=== PATIENT | female | born 1960 | race Caucasian/White ===

== ENCOUNTER → 2017-09-11 08:47 | Outpatient (CLI) | payer OTHER, SELFPAY | PROVIDERS: Family Provider Family Medicine; PCP Family Medicine | DX: E24.9 Cushing's syndrome, unspecified (principal) | CPT/HCPCS: 36415; 82533 ==

== ENCOUNTER → 2017-09-25 10:33 | Outpatient (CLI) | payer OTHER, SELFPAY ==
[2017-09-25 11:27] LABS: Insulin 9.8 mU/L (2.6-37.6)
[2017-09-25 11:35] LABS: Anion Gap 7 (5-15); BUN 15 mg/dL (7-18); BUN/Creat Ratio 21.5 RATIO (10-20); Calcium,Total 9.6 mg/dL (8.5-10.1); Chloride 104 mmol/L (98-107); Cholesterol 226 mg/dL (200); EST Glomerular Filtration Rate 93 mL/min (>60); Est Glom Filt Rate - Afr Amer 112 mL/min (>60); Free T3 3.2 pg/mL (2.18-3.98); Glucose 105 mg/dL (74-106); High Density Lipoprotein 68 mg/dL; Potassium 4.1 mmol/L (3.5-5.1); Sodium Level 138 mmol/L (136-145); Thyroid Stim Hormone (TSH) 0.05 uIU/mL (0.358-3.74); Triglycerides 90 mg/dL; Very Low Density Lipoprotein 18 mg/dL (5-40)
[2017-09-26 15:06] LABS: Thyroglobulin Antibody < 1.0 IU/mL (0.0-0.9)
[2017-09-27 11:34] LABS: Anti-Thyroglobulin AB < 1.0 IU/mL (0.0-0.9); Thyroglobulin, Serum Qt. 0.2 ng/mL (1.5-38.5)
== END ==
PROVIDERS: Family Provider Family Medicine; PCP Family Medicine
DX: E03.9 Hypothyroidism, unspecified (principal); C73 Malignant neoplasm of thyroid gland; E88.81 Metabolic syndrome and other insulin resistance; E78.2 Mixed hyperlipidemia
CPT/HCPCS: 36415; 80048; 80061; 83525; 84432; 84436; 84443; 84481; 86800

== ENCOUNTER → 2017-12-26 15:02 | Outpatient (CLI) | payer OTHER, SELFPAY ==
[2017-12-26 16:54] LABS: Thyroid Stim Hormone (TSH) 0.08 uIU/mL (0.358-3.74)
[2017-12-29 11:11] LABS: Thyroglobulin Antibody < 1.0 IU/mL (0.0-0.9)
== END ==
PROVIDERS: Family Provider Family Medicine; PCP Family Medicine; Visit Provider Internal Medicine Endocrinology, Diabetes & Metabolism
DX: C73 Malignant neoplasm of thyroid gland (principal)
CPT/HCPCS: 36415; 84443; 86800

== ENCOUNTER → 2018-06-18 12:04 | Outpatient (CLI) | payer OTHER, SELFPAY ==
--- NOTE | 2018-06-18 12:13 | US_ITS ---
STUDY: THYROID ULTRASOUND REASON FOR EXAM: Female, 57 years old. Bilateral thyroidectomy. History of thyroid cancer. TECHNIQUE: Ultrasound evaluation of the thyroid was performed with real-time and static moy-scale imaging. COMPARISON: None. FINDINGS: The right lobe of thyroid gland is absent. Residual tissue seen in the left lobe measuring 1.7 x 0.7 x 0.7 cm. Soft tissue is homogeneous in echotexture. The isthmus is not present. The regional lymph nodes are normal. US/Thyroid IMPRESSION: Postoperative changes of bilateral thyroidectomy. Residual soft tissue in the surgical bed left lobe. Electronically Signed: Olayinka Vázquez MD at 2:28 EST , Service support ,
== END ==
PROVIDERS: Family Provider Family Medicine; PCP Family Medicine
DX: C73 Malignant neoplasm of thyroid gland (principal)
CPT/HCPCS: 76536

== ENCOUNTER → 2018-06-21 08:18 | Outpatient (CLI) | payer OTHER, SELFPAY ==
[2018-06-21 09:53] LABS: Hematocrit 45.7 % (37-47); Hemoglobin 15.2 g/dl (12.0-15.0); Mean Corp Hgb Conc 33.3 g/gl (32-36); Mean Corpuscular Hgb 31.3 pg (27.0-32.0); Mean Platelet Vol. 10.3 fl (6.2-12.0); Platelet Count 242 K/mm3 (150-450); RBC Distribution Width CV 13.4 % (11.6-14.6); RBC Distribution Width SD 46.2 fl (35.1-43.9); Red Blood Count 4.86 M/mm3 (4.2-5.4); White Blood Count 9.7 K/mm3 (4.4-11.0)
[2018-06-21 09:56] LABS: Scan Indicated on CBC? Y/N NO
[2018-06-21 10:01] LABS: Osmolality, Urine 671 mOsm/KG
[2018-06-21 10:07] LABS: Urine Sodium 142 mmol/L (Not Establ.)
[2018-06-21 10:11] LABS: Osmolality, Serum 297 mOsm/KG (275-295)
[2018-06-21 10:29] LABS: Vitamin D,25 Hydroxy 26.2 ng/mL (29.95-100.01)
[2018-06-21 10:33] LABS: AST(SGOT) 24 U/L (15-37); Alanine Aminotransfer ALT/SGPT 46 U/L (13-56); Albumin, Serum 3.7 g/dL (3.2-5.0); Alkaline Phosphatase 87 U/L (45-117); Anion Gap 7 (5-15); BUN 10 mg/dL (7-18); BUN/Creat Ratio 18.6 RATIO (10-20); Bilirubin, Direct 0.09 mg/dL (0.00-0.30); Calcium,Total 8.8 mg/dL (8.5-10.1); Chloride 113 mmol/L (98-107); Creatinine, Serum 0.54 mg/dL (0.55-1.02); EST Glomerular Filtration Rate 125 mL/min (>60); Est Glom Filt Rate - Afr Amer 151 mL/min (>60); Estradiol < 11.0 pg/mL; Follicle Stimulating Hormone 91.7 mIU/mL; Free T3 3.5 pg/mL (2.18-3.98); Globulin 3.8 g/dL (2.2-4.2); Glucose 89 mg/dL (74-106); Luteinizing Hormone 41.2 mIU/mL; Magnesium 2.1 mg/dL (1.6-2.6); Phosphorus 3.8 mg/dL (2.5-4.9); Potassium 4.1 mmol/L (3.5-5.1); Prolactin 5.6 ng/mL; Protein, Total 7.5 g/dL (6.4-8.2); Sodium Level 144 mmol/L (136-145); T4 Free Direct 1.18 ng/dL (0.76-1.46); Thyroid Stim Hormone (TSH) 0.02 uIU/mL (0.358-3.74)
[2018-06-21 10:57] LABS: PTHIN 62.9 pg/mL (18.4-80.1)
[2018-06-26 10:56] LABS: Vitamin D 1,25-Dihydroxy 38.1 pg/mL (19.9-79.3)
[2018-06-27 03:06] LABS: DHEA Sulfate 233.6 ug/dL (29.4-220.5); Growth Hormone 2.6 ng/mL (0.0-10.0); Somatomedin C 130 ng/mL (53-190)
[2018-06-27 11:19] LABS: Aldosterone, Serum 2.1 ng/dL (0.0-30.0); Anti-Thyroglobulin AB < 1.0 IU/mL (0.0-0.9); Thyroglobulin, Serum Qt. 0.1 ng/mL (1.5-38.5)
--- OUTSIDE RECORDS SUMMARY | 2018-08-07 01:20 | XMS RPT_ITS ---
:1960 Author Organization OHIP Support Name Relationship Address Phone EAGLES Unavailable [address] + [place] [address] STEFANIE PIERRE Unavailable [address] + [place] [address] BREANNA DE PAZ Unavailable Unavailable + [place] [address] EAGLES Unavailable [address] + [place] [address] STEFANIE PIERRE Unavailable [address] + [place] [address] BREANNA DE PAZ Unavailable Unavailable + [place] [address] EAGLES Unavailable [address] + [place] [address] STEFANIE PIERRE Unavailable [address] + [place] [address] BREANNA DE PAZ Unavailable Unavailable + [place] [address] EAGLES Unavailable [address] + [place] [address] STEFANIE PIERRE Unavailable [address] + [place] [address] BREANNA DE PAZ Unavailable Unavailable + [place] [address] STEFANIE PIERRE Unavailable [address] + [place] [address] BREANNA DE PAZ Unavailable Unavailable + [place] [address] UE Unavailable Unavailable Unavailable STEFANIE PIERRE Unavailable [address] + [place] [address] UE Unavailable Unavailable Unavailable KAVYA HOLDEN Unavailable Unavailable + STEFANIE PIERRE Unavailable [address] + [place] [address] UE Unavailable Unavailable Unavailable STEFANIE PIERRE Unavailable [address] + [place] [address] UE Unavailable Unavailable Unavailable STEFANIE PIERRE Unavailable [address] + [place] [address] UE Unavailable Unavailable Unavailable STEFANIE PIERRE Unavailable / + [place] [address] UE Unavailable Unavailable Unavailable Care Team Providers Name Role Phone AMBER MENSAH MD Admitting Unavailable AMBER MENSAH MD Attending Unavailable AMBER MENSAH MD Consulting Unavailable GURINDER BROOKE Attending Unavailable GURINDER BROOKE Referring Unavailable Sky, Roberto Primary Care Unavailable Sky, Roberto Attending Unavailable Sky, Roberto Primary Care Unavailable GURINDER BROOKE Attending Unavailable GURINDER BROOKE Referring Unavailable GURINDER BROOKE Attending Unavailable GURINDER BROOKE Referring Unavailable Sky, Roberto Primary Care Unavailable Sky, Roberto Attending Unavailable Sky, Roberto Referring Unavailable Sky, Roberto Primary Care Unavailable GURINDER BROOKE Attending Unavailable Sky, Roberto Primary Care Unavailable GAMALIEL GARCIA Attending Unavailable GAMALIEL GARCIA Referring Unavailable Sky, Roberto Primary Care Unavailable GURINDER BROOKE Attending Unavailable Sky, Roberto Primary Care Unavailable GURINDER BROOKE Attending Unavailable GURINDER BROOKE Referring Unavailable Sky, Roberto Primary Care Unavailable GURINDER BROOKE Consulting Unavailable Sky, Roberto Primary Care Unavailable GURINDER BROOKE Attending Unavailable GURINDER BROOKE Referring Unavailable Dr. Gamaliel Garcia Admitting Unavailable Dr. 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 / Hospital C73(ICD-10) Repository 05/28/2018 Admitting THYROID CA / GOODMAN CHERRY, Active [facility] diagnosis 193(ICD-9) [facility] Repository 05/28/2018 Unknown THYROID CA / GOODMAN CHERRY, Active [facility] 193(ICD-9) [facility] Repository 05/28/2018 Admitting MALIGNANT NEOPLASM GOODMAN CHERRY, [facility] diagnosis OF THYROID GLAND / [facility] C73(ICD-10) Repository 05/28/2018 Unknown MALIGNANT NEOPLASM GOODMAN CHERRY, Active [facility] OF THYROID GLAND / [facility] C73(ICD-10) Repository 09/25/2017 Unknown E03.9 - GURINDER BROOKE Active [place] Hypothyroidism, Community unspecified / Hospital E03.9(ICD-10) Repository 09/11/2017 Unknown 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 UNK TYPE CODE TESTS RESULT OUT OF RANGE REFERENCE UNITS LAB L505.0075 TO BE Normal CONFIRMED Result Comment: CONFIRMATORY TESTING FOR ALL POSITIVE URINE DRUG SCREEN RESULTS WILL ONLY BE SENT OUT UPON PHYSICIAN ORDER. VISTA Urine Drug Screen methods provide only preliminary analytical test results. A more specific alternate chemical method must be used in order to obtain a confirmed analytical result. Gas chromatography/mass spectrometery (GC/MS) is the preferred confirmatory method. Clinical consideration and professional judgement should be applied to any drug of abuse test result, particularly when preliminary positive results are used. URINE TCA TESTING MUST BE ORDERED SEPARATELY. USE TEST MNEMONIC: [facility] LAB L505.5005 VISTA UDS PH 6 Normal LAB L505.5015 <1000 ng/mL AMPHETAMINES Normal NEGATIVE LAB L505.5025 < 200 ng/mL BARBITIURATES Normal NEGATIVE LAB L505.5035 < 200 ng/mL BENZODIAZIPINE Normal NEGATIVE LAB L505.5045 < 300 ng/mL COCAINE Normal NEGATIVE LAB L505.5055 < 500 ng/mL ECSTACY Normal NEGATIVE LAB L505.5065 < 300 ng/mL METHADONE Normal NEGATIVE LAB L505.5075 < 300 ng/mL OPIATES Normal NEGATIVE LAB L505.5085 < 25 ng/mL PCP Normal NEGATIVE LAB L505.5095 < 50 ng/mL THC Normal NEGATIVE Performed By: #### L505.5000 #### [facility] [address] [place], [address] MISCELLANEOUS LAB Collected: 07/18/2018 Status: F Source: [place] PROCEDURE 12:00 AM [facility] Order Comment: Comments: [id number] cortisol salivary refridgerated Test(s) Ordered: [id number] cortisol salivary refridgerated TYPE CODE TESTS RESULT OUT OF RANGE REFERENCE UNITS LAB L801.1541 Normal [facility] TEST Result Comment: TEST RESULT UNITS REF INTERVAL Salivary Cortisol,MS Salivary Cortisol, MS 0.054 ug/dL Reference Range: Children and Adults: 8:00a.m.: 0.025 - 0.600 Noon: <0.010 - 0.330 4:00p.m.: 0.010 - 0.200 Midnight: <0.010 - 0.090 TESTING PERFORMED AT [facility]. ORIGINAL REPORT ON FILE IN LAB CONTAINS ADDITIONAL TEST SITE INFORMATION. Performed By: #### L801.1541 #### [facility] [address] [place], [address] CBC-COMPLETE BLOOD CNT Collected: 06/21/2018 Status: F Source: [place] NO DIFF 8:36 AM [facility] TYPE CODE TESTS RESULT OUT OF RANGE REFERENCE UNITS LAB L100.1000 4.4-11.0 K/mm3 Normal WBC 9.7 LAB L100.1200 4.2-5.4 M/mm3 Normal RBC 4.86 LAB L100.1300 12.0-15.0 g/dl High HGB 15.2 LAB L100.1400 37-47 % Normal HCT 45.7 LAB L100.1500 81-99 fL Normal MCV 94.0 LAB L100.1600 27.0-32.0 pg Normal MCH 31.3 LAB L100.1700 32-36 g/gl Normal MCHC 33.3 LAB L100.1810 11.6-14.6 % Normal RDW CV 13.4 LAB L100.1820 35.1-43.9 fl High RDW SD 46.2 LAB L100.1900 150-450 K/mm3 Normal PLT 242 LAB L100.2000 6.2-12.0 fl Normal MPV 10.3 Performed By: #### L100.0500 #### [facility] [address] [facility] [place], [address] OSMOLALITY, URINE Collected: 06/21/2018 Status: F Source: [place] 8:36 AM [facility] TYPE CODE TESTS RESULT OUT OF RANGE REFERENCE UNITS LAB L501.7400 mOsm/KG Normal 671 OSMOLALITY,U R Result Comment: OSMOLALITY URINE REFERENCE INTERVALS 24-hour Urine 300 - 900 mOsm/kg Random Urine 50 - 1400 mOsm/kg After 12 Hr fluid restriction >850 mOsm/kg Performed By: #### L501.7400, L501.5500 #### [facility] [address] [place], [address] URINE SODIUM Collected: 06/21/2018 Status: F Source: [place] 8:36 AM [facility] TYPE CODE TESTS RESULT OUT OF RANGE REFERENCE UNITS LAB L501.5500 Not Establ. mmol/L Normal UR NA 142 Performed By: #### L501.7400, L501.5500 #### [facility] [address] [place], [address] OSMOLALITY, SERUM Collected: 06/21/2018 Status: F Source: [place] 8:36 AM [facility] TYPE CODE TESTS RESULT OUT OF RANGE REFERENCE UNITS LAB L501.7300 275-295 mOsm/KG High 297 OSMOLALITY,S ER Performed By: #### L501.7300 #### [facility] [address] [place], [address] VITAMIN D,25 HYDROXY Collected: 06/21/2018 Status: F Source: [place] 8:36 AM [facility] Order Comment: Comments: [id number] METANEPHRINES TYPE CODE TESTS RESULT OUT OF REFERENCE UNITS RANGE LAB L506.1000 29.95-100.01 ng/mL Low Vitamin D 26.2 25-OH Result Comment: Vitamin D 25(OH) Status Range Deficiency <20 ng/mL (50nmol/L) Insuffciency 20 - 30 ng/mL (50 - 75 nmol/L) Sufficiency 30 - 100 ng/mL (75 - 250 nmol/L) Toxicity >100 ng/mL (>250 nmol/L) Performed By: #### L506.1000, L509.6000 #### [facility] [address] [place], [address] CORTISOL SERUM Collected: 06/21/2018 Status: F Source: [place] 8:36 AM [facility] Order Comment: Comments: [id number] METANEPHRINES TYPE CODE TESTS RESULT OUT OF RANGE REFERENCE UNITS LAB L509.6000 3.09-22.40 ug/dL Normal CORTISOL 13.90 Result Comment: Adult (AM) 4.30 - 22.40 ug/dL Adult (PM) 3.09 - 16.66 ug/dL Performed By: #### L506.1000, L509.6000 #### [facility] [address] [place], [address] BASIC METABOLIC Collected: 06/21/2018 Status: F Source: [place] PROFILE (BMP) 8:36 AM [facility] Order Comment: Has Patient had X-rays with Contrast this admission? N Comments: [id number] METANEPHRINES TYPE CODE TESTS RESULT OUT OF RANGE REFERENCE UNITS LAB L501.0100 74-106 mg/dL Normal GLU 89 Result Comment: Please note revised GLUCOSE reference range effective 2017. LAB L501.1000 7-18 mg/dL Normal BUN 10 LAB L501.1100 0.55-1.02 mg/dL Low CREAT,SERUM 0.54 Result Comment: The validity of the calculated GFR AND GFRAA in patients over 70 years has not been determined. Clinical correlation is essential. LAB L501.1110 >60 mL/min Normal EST GFR 125 Result Comment: Non- GFR Calc LAB L501.1115 >60 mL/min Normal EST GFR - AA 151 Result Comment: GFR Calc LAB L501.1300 10-20 RATIO Normal BUN/CRE 18.6 LAB L501.2200 8.5-10.1 mg/dL CA Normal 8.8 LAB L501.5300 136-145 mmol/L NA Normal 144 LAB L501.5600 3.5-5.1 mmol/L K Normal 4.1 LAB L501.5900 98-107 mmol/L High CL 113 LAB L501.6100 21.0-32.0 mmol/L Normal CO2 24.0 LAB L501.6200 5-15 Normal GAP 7 Performed By: #### L500.2500, L500.3400, L501.2300, L501.5200, L501.69528, L501.9520, L506.0400, L3100.5125, L3100.5170, L3100.5420, L3300.1750 #### [facility] [address] [place], [place], [address] LIVER PROFILE Collected: 06/21/2018 Status: F Source: [place] 8:36 AM [facility] Order Comment: Has Patient had X-rays with Contrast this admission? N Comments: [id number] METANEPHRINES TYPE CODE TESTS RESULT OUT OF RANGE REFERENCE UNITS LAB L501.1500 6.4-8.2 g/dL Normal T PROT 7.5 LAB L501.1800 3.2-5.0 g/dL Normal ALB 3.7 LAB L501.1950 2.2-4.2 g/dL Normal GLOB 3.8 LAB L501.4100 15-37 U/L Normal AST 24 LAB L501.4305 45-117 U/L Normal ALK P 87 LAB L501.4405 13-56 U/L Normal ALT 46 LAB L501.4600 0.20-1.00 mg/dL Normal T BILI 0.40 LAB L501.4700 0.00-0.30 mg/dL Normal D BILI 0.09 Performed By: #### L500.2500, L500.3400, L501.2300, L501.5200, L501.18402, L501.9520, L506.0400, L3100.5125, L3100.5170, L3100.5420, L3300.1750 #### [facility] [address] [place], [place], [address] PHOSPHORUS Collected: 06/21/2018 Status: F Source: [place] 8:36 AM [facility] Order Comment: Has Patient had X-rays with Contrast this admission? N Comments: [id number] METANEPHRINES TYPE CODE TESTS RESULT OUT OF RANGE REFERENCE UNITS LAB L501.2300 2.5-4.9 mg/dL Normal PHOS 3.8 Performed By: #### L500.2500, L500.3400, L501.2300, L501.5200, L501.09454, L501.9520, L506.0400, L3100.5125, L3100.5170, L3100.5420, L3300.1750 #### [facility] [address] [place], [place], [address] MAGNESIUM Collected: 06/21/2018 Status: F Source: [place] 8:36 AM [facility] Order Comment: Has Patient had X-rays with Contrast this admission? N Comments: [id number] METANEPHRINES TYPE CODE TESTS RESULT OUT OF RANGE REFERENCE UNITS LAB L501.5200 1.6-2.6 mg/dL Normal MG 2.1 Performed By: #### L500.2500, L500.3400, L501.2300, L501.5200, L501.71013, L501.9520, L506.0400, L3100.5125, L3100.5170, L3100.5420, L3300.1750 #### [facility] [address] [place], [place], [address] FREE T3 Collected: 06/21/2018 Status: F Source: [place] 8:36 AM [facility] Order Comment: Has Patient had X-rays with Contrast this admission? N Comments: [id number] METANEPHRINES TYPE CODE TESTS RESULT OUT OF RANGE REFERENCE UNITS LAB L501.11002 2.18-3.98 pg/mL Normal FREE T3 3.5 Performed By: #### L500.2500, L500.3400, L501.2300, L501.5200, L501.13430, L501.9520, L506.0400, L3100.5125, L3100.5170, L3100.5420, L3300.1750 #### [facility] [address] [place], [place], [address] THYROID STIM HORMONE Collected: 06/21/2018 Status: F Source: [place] (TSH) 8:36 AM [facility] Order Comment: Has Patient had X-rays with Contrast this admission? N Comments: [id number] METANEPHRINES TYPE CODE TESTS RESULT OUT OF RANGE REFERENCE UNITS LAB L501.9520 0.358-3.74 uIU/mL Low TSH 0.02 Performed By: #### L500.2500, L500.3400, L501.2300, L501.5200, L501.29661, L501.9520, L506.0400, L3100.5125, L3100.5170, L3100.5420, L3300.1750 #### [facility] [address] [place], [place], [address] T4 FREE DIRECT Collected: 06/21/2018 Status: F Source: [place] 8:36 AM [facility] Order Comment: Has Patient had X-rays with Contrast this admission? N Comments: [id number] METANEPHRINES TYPE CODE TESTS RESULT OUT OF RANGE REFERENCE UNITS LAB L506.0400 0.76-1.46 ng/dL Normal T4 FREE 1.18 DIRECT Performed By: #### L500.2500, L500.3400, L501.2300, L501.5200, L501.25547, L501.9520, L506.0400, L3100.5125, L3100.5170, L3100.5420, L3300.1750 #### [facility] [address] [place], [place], [id number] FOLLICLE STIMULATING Collected: 06/21/2018 Status: F Source: [place] HORMONE 8:36 AM [facility] Order Comment: Has Patient had X-rays with Contrast this admission? N Comments: [id number] METANEPHRINES TYPE CODE TESTS RESULT OUT OF RANGE REFERENCE UNITS LAB L3100.5125 mIU/mL Normal FSH 91.7 Result Comment: NORMAL REFERENCE RANGES FEMALE FOLLICULAR 2.3 - 12.6 mIU/mL MID-CYCLE PEAK 5.2 - 17.5 mIU/mL LUTEAL 1.7 - 12.9 mIU/mL POST-MENOPAUSAL ON MHT 5.9 - 72.8 mIU/mL NOT ON MHT 12.7 - 132.2 mlU/mL MALE 0.7 - 10.8 mIU/mL NEW TEST METHOD AND REFERENCE RANGES NOVEMBER 28, 2011 Performed By: #### L500.2500, L500.3400, L501.2300, L501.5200, L501.18031, L501.9520, L506.0400, L3100.5125, L3100.5170, L3100.5420, L3300.1750 #### [facility] [address] [place], [place], [address] LUTEINIZING HORMONE Collected: 06/21/2018 Status: F Source: [place] 8:36 AM [facility] Order Comment: Has Patient had X-rays with Contrast this admission? N Comments: [id number] METANEPHRINES TYPE CODE TESTS RESULT OUT OF RANGE REFERENCE UNITS LAB L3100.5170 mIU/mL Normal LH 41.2 Result Comment: NORMAL REFERENCE RANGES FEMALE FOLLICULAR 1.9 - 26.2 mIU/mL MID-CYCLE PEAK 22.8 - 76.1 mIU/mL LUTEAL 0.6 - 16.6 mIU/mL POST-MENOPAUSAL ON MHT 1.1 - 52.4 mIU/mL NOT ON MHT 8.6 - 61.8 mIU/mL MALE 1.2 - 10.6 mIU/mL NEW TEST METHOD AND REFERENCE RANGES NOVEMBER 28, 2011 Performed By: #### L500.2500, L500.3400, L501.2300, L501.5200, L501.29335, L501.9520, L506.0400, L3100.5125, L3100.5170, L3100.5420, L3300.1750 #### [facility] [address] [place], [place], [address] (582) PROLACTIN Collected: 06/21/2018 Status: F Source: [place] 8:36 AM [facility] Order Comment: Has Patient had X-rays with Contrast this admission? N Comments: [id number] METANEPHRINES TYPE CODE TESTS RESULT OUT OF RANGE REFERENCE UNITS LAB L3100.5420 ng/mL Normal PROLACTIN 5.6 Result Comment: NORMAL REFERENCE RANGES FEMALE NON- 2.2 - 30.3 ng/mL 8.1 - 347.6 ng/mL POST-MENOPAUSAL 0.7 - 31.5 ng/mL MALE 2.5 - 17.4 ng/mL NEW TEST METHOD AND REFERENCE RANGES NOVEMBER 28, 2011 Performed By: #### L500.2500, L500.3400, L501.2300, L501.5200, L501.71432, L501.9520, L506.0400, L3100.5125, L3100.5170, L3100.5420, L3300.1750 #### [facility] [address] [facility] [place], [place], [address] ESTRADIOL Collected: 06/21/2018 Status: F Source: [place] 8:36 AM [facility] Order Comment: Has Patient had X-rays with Contrast this admission? N Comments: [id number] METANEPHRINES TYPE CODE TESTS RESULT OUT OF RANGE REFERENCE UNITS LAB L3300.1750 pg/mL Normal ESTRADIOL < 11.0 Result Comment: NORMAL REFERENCE RANGES FEMALE FOLLICULAR 21.4 - 164.8 pg/mL MID-CYCLE PEAK 49.9 - 367.2 pg/mL LUTEAL 40.2 - 259.0 pg/mL POST-MENOPAUSAL ON MHT <11.0 - 462.1 pg/mL NOT ON MHT <11.0 - 58.3 pg/mL MALE <11.0 - 52.5 pg/mL NOTE: [facility] HAS CONFIRMED THE DRUG FULVETRANT (FASLODEX) MAY CAUSE FALSELY ELEVATED ESTRADIOL RESULTS WHEN USING THIS TEST METHOD. IF PATIENT IS TAKING FULVESTRANT AN ALTERNATIVE METHOD SHOULD BE USED TO DETERMINE ESTRADIOL CONCENTRATION. Performed By: #### L500.2500, L500.3400, L501.2300, L501.5200, L501.21810, L501.9520, L506.0400, L3100.5125, L3100.5170, L3100.5420, L3300.1750 #### [facility] [address] [place], [address] PTHIN Collected: 06/21/2018 Status: F Source: [place] 8:36 AM [facility] TYPE CODE TESTS RESULT OUT OF RANGE REFERENCE UNITS LAB L509.1000 18.4-80.1 pg/mL Normal PTHIN 62.9 Performed By: #### L509.1000 #### [facility] [address] [place], [address] VITAMIN D 1,25-DIHYDROXY Collected: 06/21/2018 Status: F Source: [place] 8:36 AM [facility] TYPE CODE TESTS RESULT OUT OF RANGE REFERENCE UNITS LAB L3300.0960 19.9-79.3 pg/mL Normal VITD 1,25 38.1 29186 Result Comment: Performed at: [facility] [id number] Case Work Aide: Gallo Elaine MD, Phone: [phone] Performed By: #### L3300.0960 #### [facility] (refer to report for specific site) refer to report for address and phone number CALCIUM IONIZED Collected: 06/21/2018 Status: F Source: [place] 8:36 AM [facility] Order Comment: Has Patient had X-rays with Contrast this admission? N Comments: [id number] METANEPHRINES Has Patient had Radioactive Injection for X-ray?: N TYPE CODE TESTS RESULT OUT OF RANGE REFERENCE UNITS LAB L3100.9600 4.5-5.6 mg/dL Normal IONIZED CA 5.4 Performed By: #### L3100.9600, L3300.1000, L3300.1100, L3300.1500, L3300.6820, L3400.1300, L3400.1375, L3400.4000 #### [facility] (refer to report for specific site) refer to report for address and phone number ADRENOCORTICOTROPIC HORMONE Collected: Status: F Source: [place] 06/21/2018 8:36 AM [facility] Order Comment: Has Patient had X-rays with Contrast this admission? N Comments: [id number] METANEPHRINES Has Patient had Radioactive Injection for X-ray?: N TYPE CODE TESTS RESULT OUT OF RANGE REFERENCE UNITS LAB L3300.1000 . pg/mL Test Normal ACTH not performed 4440 Result Comment: No frozen plasma received. Contacted Gayle at your facility on 06-25-2018 ACTH reference interval for samples collected between 7 and 10 AM. Performed By: #### L3100.9600, L3300.1000, L3300.1100, L3300.1500, L3300.6820, L3400.1300, L3400.1375, L3400.4000 #### [facility] (refer to report for specific site) refer to report for address and phone number ALDOSTERONE, SERUM Collected: 06/21/2018 Status: F Source: [place] 8:36 AM [facility] Order Comment: Has Patient had X-rays with Contrast this admission? N Comments: [id number] METANEPHRINES Has Patient had Radioactive Injection for X-ray?: N TYPE CODE TESTS RESULT OUT OF RANGE REFERENCE UNITS LAB L3300.1100 0.0-30.0 ng/dL Normal ALDOSTERON 4374 2.1 Result Comment: This test was developed and its performance characteristics determined by [facility]. It has not been cleared or approved by the Food and Drug Administration. Performed By: #### L3100.9600, L3300.1000, L3300.1100, L3300.1500, L3300.6820, L3400.1300, L3400.1375, L3400.4000 #### [facility] (refer to report for specific site) refer to report for address and phone number DHEA SULFATE Collected: 06/21/2018 Status: F Source: [place] 8:36 AM [facility] Order Comment: Has Patient had X-rays with Contrast this admission? N Comments: [id number] METANEPHRINES Has Patient had Radioactive Injection for X-ray?: N TYPE CODE TESTS RESULT OUT OF RANGE REFERENCE UNITS LAB L3300.1500 29.4-220.5 ug/dL High DHEA SULF 233.6 4020 Performed By: #### L3100.9600, L3300.1000, L3300.1100, L3300.1500, L3300.6820, L3400.1300, L3400.1375, L3400.4000 #### [facility] (refer to report for specific site) refer to report for address and phone number THYROGLOBULIN W/ANTI-TG Collected: 06/21/2018 Status: F Source: [place] AB 8:36 AM [facility] Order Comment: Has Patient had X-rays with Contrast this admission? N Comments: [id number] METANEPHRINES Has Patient had Radioactive Injection for X-ray?: N TYPE CODE TESTS RESULT OUT OF RANGE REFERENCE UNITS LAB L3300.7025 0.0-0.9 IU/mL Normal ANTI-TG < 1.0 AB Result Comment: Thyroglobulin Antibody measured by [facility] L3400.1030 1.5-38.5 ng/mL Low THYROGLOB 0.1 Result Comment: According to the National Academy of Clinical Biochemistry, the reference interval for Thyroglobulin (TG) should be related to euthyroid patients and not for patients who underwent thyroidectomy. TG reference intervals for these patients depend on the residual mass of the thyroid tissue left after surgery. Establishing a post-operative baseline is recommended. The assay limit of quantitation is 0.1 ng/mL Thyroglobulin measured by [facility] Performed By: #### L3100.9600, L3300.1000, L3300.1100, L3300.1500, L3300.6820, L3400.1300, L3400.1375, L3400.4000 #### [facility] (refer to report for specific site) refer to report for address and phone number SOMATOMEDIN C Collected: 06/21/2018 Status: F Source: [place] 8:36 AM [facility] Order Comment: Has Patient had X-rays with Contrast this admission? N Comments: [id number] METANEPHRINES Has Patient had Radioactive Injection for X-ray?: N TYPE CODE TESTS RESULT OUT OF RANGE REFERENCE UNITS LAB L3400.1300 53-190 ng/mL Normal SOMATOM 130 [id number] Performed By: #### L3100.9600, L3300.1000, L3300.1100, L3300.1500, L3300.6820, L3400.1300, L3400.1375, L3400.4000 #### [facility] (refer to report for specific site) refer to report for address and phone number GROWTH HORMONE Collected: 06/21/2018 Status: F Source: [facility] 8:36 AM [facility] [place] Order Comment: Has Patient had X-rays with Contrast this admission? N Comments: [id number] METANEPHRINES Has Patient had Radioactive Injection for X-ray?: N TYPE CODE TESTS RESULT OUT OF RANGE REFERENCE UNITS LAB L3400.1375 0.0-10.0 ng/mL Normal GROWTH HOR 2.6 4275 Performed By: #### L3100.9600, L3300.1000, L3300.1100, L3300.1500, L3300.6820, L3400.1300, L3400.1375, L3400.4000 #### [facility] (refer to report for specific site) refer to report for address and phone number RENIN, PLASMA Collected: 06/21/2018 Status: F Source: [place] 8:36 AM [facility] Order Comment: Has Patient had X-rays with Contrast this admission? N Comments: [id number] METANEPHRINES Has Patient had Radioactive Injection for X-ray?: N TYPE CODE TESTS RESULT OUT OF RANGE REFERENCE UNITS LAB L3400.4000 . ng/mL/hr Test Normal not performed RENIN,PL 2005 Result Comment: No frozen plasma received. This test was developed and its performance characteristics determined by [facility]. It has not been cleared or approved by the Food and Drug Administration. Contacted Gayle at your facility on 06-25-2018 Performed By: #### L3100.9600, L3300.1000, L3300.1100, L3300.1500, L3300.6820, L3400.1300, L3400.1375, L3400.4000 #### [facility] (refer to report for specific site) refer to report for address and phone number MISCELLANEOUS LAB Collected: 06/21/2018 Status: F Source: [place] PROCEDURE 8:36 AM [facility] Order Comment: Comments: [id number] METANEPHRINES Test(s) Ordered: [id number] METANEPHRINES TYPE CODE TESTS RESULT OUT OF RANGE REFERENCE UNITS LAB L801.1541 Normal [facility] LAB TEST Result Comment: TEST RESULT UNITS REFERENCE INTERVAL Metanephrines, Frac., Pl. Free Normetanephrine, Pl 63 pg/mL 0 - 145 Metanephrine, Pl 10 pg/mL 0 - 62 Concentrations of Normetanephrine between 146 and 487 pg/mL, and Metanephrine between 63 and 255 pg/mL are considered indeterminate. Follow-up biochemical testing is recommended when patient levels fall within this indeterminate range. These tests include repeat testing of plasma/urinary fractionated metanephrines and plasma catecholamines. TESTING PERFORMED AT [facility]. ORIGINAL REPORT ON FILE IN LAB CONTAINS ADDITIONAL TEST SITE INFORMATION. Performed By: #### L801.1541 #### [facility] [address] [place], [address] THYROID Observed: 06/18/2018 Status: F Source: [place] 12:14 PM [facility] [place] Imaging Services [address] [place] [address] Thyroid MR#: [id number] Acct: [id number] Name: MERY PLEITEZ Rep #: [id number] : 1960 F 57 From: Olayinka Vázquez PCP: Roberto Sky MD Status: REG CLI Study: Thyroid Date of Exam: 06/18/18 Exam# [id number] Ordering Dr: DREW MENSAH STUDY: THYROID ULTRASOUND REASON FOR EXAM: Female, 57 years old. Bilateral thyroidectomy. History of thyroid cancer. TECHNIQUE: Ultrasound evaluation of the thyroid was performed with real-time and static garg-scale imaging. COMPARISON: None. FINDINGS: The right lobe of thyroid gland is absent. Residual tissue seen in the left lobe measuring 1.7 x 0.7 x 0.7 cm. Soft tissue is homogeneous in echotexture. The isthmus is not present. The regional lymph nodes are normal. US/Thyroid IMPRESSION: Postoperative changes of bilateral thyroidectomy. Residual soft tissue in the surgical bed left lobe. Electronically Signed: Olayinka Vázquez MD at 2:28 EST , Service support , CC: Roberto Sky MD; DREW MENSAH [employer] Clerk: Signed CNCO Observed: 02/09/2018 Status: COMPLETED Source: [place] 12:00 AM [facility] [place] REPOSITORY Letter Text Neena [place] CNP [facility] [place] [address] Mery Pleitez February 09, 2018 Mery Tre Pleitez [address] [address] Dear Ms. Pleitez, It was noted that you did not keep your scheduled appointment on 02/09/18. It is important to contact the office in advance if you are unable to keep your appointment so that it is available for other patients. Your medical care is important to us. Please call our office to reschedule an appointment. Sincerely, Neena [place] CNP THYROID STIM HORMONE Collected: 12/26/2017 Status: F Source: [place] (TSH) 3:06 PM [facility] TYPE CODE TESTS RESULT OUT OF RANGE REFERENCE UNITS LAB L501.9520 0.358-3.74 uIU/mL Low TSH 0.08 Performed By: #### L501.9520 #### [place] [facility] [address] [place], [address] THYROGLOBULIN ANTIBODY Collected: 12/26/2017 Status: F Source: [place] 3:06 PM [facility] TYPE CODE TESTS RESULT OUT OF RANGE REFERENCE UNITS LAB L3300.7027 0.0-0.9 IU/mL Normal TG AB < 1.0 Result Comment: Thyroglobulin Antibody measured by Leobardo [place] Methodology Performed at: - [facility] [address] [id number] Case Work Aide: Sudhir Trinidad PhD, Phone: [phone] Performed By: #### L3300.7027 #### [facility] (refer to report for specific site) refer to report for address and phone number [id number] WHOLE BODY Observed: 12/14/2017 Status: F Source: [facility] SCAN 10:15 AM [facility] REPOSITORY Final Report Accession No: [id number] Performed: Dec 14 2017 10:15AM Examination: I-131 WHOLE BODY SCAN I-131 TOTAL BODY SCAN: HISTORY: Recurrent thyroid cancer. COMPARISON: None. TECHNIQUE: The patient received 3.1 millicuries of I-123 sodium iodide by mouth and whole body imaging was performed at 24 hours. FINDINGS: There is a focus of increased activity within the neck near the midline. There is additional mild activity noted just inferior to this focus. There is an otherwise physiologic distribution of activity. IMPRESSION: 1. Foci of activity in the neck. If the patient did not have prior radioactive iodine therapy, this is likely due to thyroid remnant tissue. Otherwise, it could be due to metastatic disease. Ultrasound may be considered. 2. No evidence of distant metastatic disease. Interpreting Physician: HUI PARKS M.D. Trans: lcoope : cc: CT HEAD OR BRAIN W/O Observed: 10/14/2017 Status: F Source: DENOMINATIONAL CONTRAST 1:37 AM [facility] REPOSITORY Exam Date/Time: 10/14/2017 01:54 EDT Reason for Exam: fall;Other (please specify) Report CT SCAN BRAIN, NONCONTRAST CLINICAL HISTORY: [Fall, mental status changes. Injury. Intoxication. COMPARISON: None. TECHNIQUE: Unenhanced helical imaging was acquired from skull base to vertex. Multiplanar images are submitted. Dose reduction techniques were achieved by using automated exposure control and/or adjustment of mA and/or kV according to patient size and/or use of iterative reconstruction technique. FINDINGS: There is no acute intraaxial or extraaxial mass, shift, or bleed. Garg-white junctions are well defined. The ventricles and sulci are age-appropriate. The pituitary and sella turcica are normal. The orbit and ocular contents are normal. The paranasal sinuses are clear. Calvarium is intact. IMPRESSION: 1. No acute intracranial event. 2. Clear sinuses. 3. No calvarial injury. FINAL REPORT Dictated: 10/14/2017 3:45 am Alexandra Aranda MD Signed (Electronic Signature): 10/14/2017 3:45 am Signed by: Alexandra Aranda MD Technologist: GABRIELLA CT SPINE CERVICAL W/O Observed: 10/14/2017 Status: F Source: DENOMINATIONAL CONTRAST 1:37 AM [facility] REPOSITORY Exam Date/Time: 10/14/2017 01:54 EDT Reason for Exam: Trauma Report CERVICAL SPINE CT CLINICAL HISTORY: Trauma. COMPARISON: CT brain 10/14/2017. TECHNIQUE: Unenhanced helical imaging of the cervical spine was performed. Dose reduction techniques were achieved by using automated exposure control and/or adjustment of mA and/or kV according to patient size and/or use of iterative reconstruction technique. Axial, coronal, and sagittal reconstructions are submitted. FINDINGS: There is no acute fracture or dislocation. The craniocervical and cervicothoracic junctions are normal. No prevertebral soft tissue swelling is seen. The tracheal airway is intact. Mild discogenic disease is seen at C4-C5 with small broad- based disc-osteophyte complex present. Bridging osteophytic spurring is also seen at C5-C6. Vertebral body heights, disc heights, and bone mineralization are normal. No neural foraminal stenosis is seen. No central canal stenosis is identified, either. The patient is post prior thyroidectomy. The imaged lung apices are clear. IMPRESSION: 1. Normal alignment. 2. No acute osseous abnormality. 3. Mild multilevel degenerative disease. No central canal or neural foraminal stenosis. FINAL REPORT Dictated: 10/14/2017 3:45 am Alexandra Aranda MD Signed (Electronic Signature): 10/14/2017 3:45 am Signed by: Alexandra Aranda MD Technologist: GABRIELLA ETHANOL Collected: 10/14/2017 Status: F Source: DENOMINATIONAL 1:36 AM [facility] REPOSITORY TYPE CODE TESTS RESULT OUT OF RANGE REFERENCE UNITS LAB [id number](L 0-15 mg/dL OINC) Abnormal Alert Ethanol Lvl 358 Result Comment: Critical Result ETOH: Called to: JAY ESQUIVEL at: 01:52:41 by:NICOLAS Read back by:JAY ESQUIVEL SAMPLES WITH CONCENTRATIONS <15 MG/DL SHOULD BE INTERPRETED NEGATIVE. FOR MEDICAL USE ONLY Performed By: #### [id number] #### [facility] [place] [address] INSULIN Collected: 09/25/2017 Status: F Source: [place] 10:41 AM [facility] TYPE CODE TESTS RESULT OUT OF RANGE REFERENCE UNITS LAB [id number] 2.6-37.6 mU/L Normal Insulin 9.8 Result Comment: Please Note: INSULIN METHOD AND REFERENCE RANGE CHANGE Effective 07/20/2017. Performed By: #### [id number] #### [facility] [address] [place], [address] BASIC METABOLIC Collected: 09/25/2017 Status: F Source: [place] PROFILE (BMP) 10:41 AM [facility] TYPE CODE TESTS RESULT OUT OF RANGE REFERENCE UNITS LAB L501.0100 74-106 mg/dL Normal GLU 105 Result Comment: Fasting Glucose result from 100 to 125 mg/dL suggests IMPAIRED HOMEOSTASIS per A.D.A. criteria. Please note revised GLUCOSE reference range effective 2017. LAB L501.1000 7-18 mg/dL Normal BUN 15 LAB L501.1100 0.55-1.02 mg/dL Normal CREAT,SERUM 0.70 Result Comment: The validity of the calculated GFR AND GFRAA in patients over 70 years has not been determined. Clinical correlation is essential. LAB L501.1110 >60 mL/min Normal EST GFR 93 Result Comment: Non- GFR Calc LAB L501.1115 >60 mL/min Normal EST GFR - AA 112 Result Comment: GFR Calc LAB L501.1300 10-20 RATIO High BUN/CRE 21.5 LAB L501.2200 8.5-10.1 mg/dL CA Normal 9.6 LAB L501.5300 136-145 mmol/L NA Normal 138 LAB L501.5600 3.5-5.1 mmol/L K Normal 4.1 LAB L501.5900 98-107 mmol/L CL Normal 104 LAB L501.6100 21.0-32.0 mmol/L Normal CO2 27.0 LAB L501.6200 5-15 Normal GAP 7 Performed By: #### L500.2500, L500.4100, L501.73711, L501.9310, L501.9520 #### [facility] [address] [place], [place], [address] LIPID PROFILE Collected: 09/25/2017 Status: F Source: [place] 10:41 AM [facility] [place] TYPE CODE TESTS RESULT OUT OF RANGE REFERENCE UNITS LAB L501.4900 200 mg/dL High CHOL 226 Result Comment: <200 mg/dL Desirable 200-240 mg/dL Borderline >240 mg/dL High Risk LAB L501.5000 mg/dL Normal TRIG 90 Result Comment: The drugs N-Acetylcysteine and Metamizole may falsely depress this assay. Serum Triglycerides Reference Interval Normal <150 mg/dL Borderline high 150 - 199 mg/dL High 200 - 499 mg/dL Very High > or = 500 mg/dL LAB L501.6400 mg/dL Normal HDL 68 Result Comment: The drugs N-Acetylcysteine and Metamizole may falsely depress this assay. Reference Range HDL <40 mg/dL Low HDL Cholesterol HDL >or= 60 mg/dL High HDL Cholesterol LAB L501.6500 0-130 mg/dL High LDL 140 LAB L501.6600 5-40 mg/dL Normal VLDL 18 Performed By: #### L500.2500, L500.4100, L501.86692, L501.9310, L501.9520 #### [facility] [address] [place], [place], [address] FREE T3 Collected: 09/25/2017 Status: F Source: [place] 10:41 AM [facility] TYPE CODE TESTS RESULT OUT OF RANGE REFERENCE UNITS LAB L501.23525 2.18-3.98 pg/mL Normal FREE T3 3.2 Performed By: #### L500.2500, L500.4100, L501.66445, L501.9310, L501.9520 #### [facility] [address] [place], [place], [address] T4 TOTAL, THYROXIN Collected: 09/25/2017 Status: F Source: [place] 10:41 AM [facility] [place] TYPE CODE TESTS RESULT OUT OF RANGE REFERENCE UNITS LAB L501.9310 4.8-13.9 ug/dL T4 Normal THYROXIN 13.0 Performed By: #### L500.2500, L500.4100, L501.60139, L501.9310, L501.9520 #### [facility] [address] [place], [place], [address] THYROID STIM HORMONE Collected: 09/25/2017 Status: F Source: [place] (TSH) 10:41 AM [facility] [place] [place] TYPE CODE TESTS RESULT OUT OF RANGE REFERENCE UNITS LAB L501.9520 0.358-3.74 uIU/mL Low TSH 0.05 Performed By: #### L500.2500, L500.4100, L501.63099, L501.9310, L501.9520 #### [facility] [address] [place], [place], [id number] THYROGLOBULIN ANTIBODY Collected: 09/25/2017 Status: F Source: [place] 10:41 AM [facility] [place] TYPE CODE TESTS RESULT OUT OF RANGE REFERENCE UNITS LAB L3300.7027 0.0-0.9 IU/mL Normal TG AB < 1.0 Result Comment: Thyroglobulin Antibody measured by Leobardo [place] Methodology Performed at: - [facility] [id number] Case Work Aide: Sudhir Trinidad PhD, Phone: [phone] Performed By: #### L3300.7027 #### [facility] (refer to report for specific site) refer to report for address and phone number THYROGLOBULIN W/ANTI-TG Collected: 09/25/2017 Status: F Source: [place] AB 10:41 AM [facility] TYPE CODE TESTS RESULT OUT OF RANGE REFERENCE UNITS LAB L3300.7025 0.0-0.9 IU/mL Normal ANTI-TG < 1.0 AB Result Comment: Thyroglobulin Antibody measured by Leobardo [place] Methodology LAB L3400.1030 1.5-38.5 ng/mL Low THYROGLOB 0.2 Result Comment: According to the National Academy of Clinical Biochemistry, the reference interval for Thyroglobulin (TG) should be related to euthyroid patients and not for patients who underwent thyroidectomy. TG reference intervals for these patients depend on the residual mass of the thyroid tissue left after surgery. Establishing a post-operative baseline is recommended. The assay limit of quantitation is 0.1 ng/mL Thyroglobulin measured by Leobardo [place] Immunometric Assay Performed at: [facility] [address] [id number] Case Work Aide: Sudhir Trinidad PhD, Phone: [phone] Performed By: #### L3300.6820 #### [facility] (refer to report for specific site) refer to report for address and phone number CORTISOL SERUM Collected: 09/11/2017 Status: F Source: [place] 8:57 AM [facility] Order Comment: Comments: MEDICATION GIVEN AT 0000 TYPE CODE TESTS RESULT OUT OF REFERENCE UNITS RANGE LAB L509.6000 3.09-22.40 ug/dL Low CORTISOL 0.80 Result Comment: Adult (AM) 4.30 - 22.40 ug/dL Adult (PM) 3.09 - 16.66 ug/dL Performed By: #### L509.6000 #### [facility] [address] [place], [address] CBC W/DIFF, AUTOMATED Collected: 08/03/2017 Status: F Source: [place] 4:17 PM [facility] TYPE CODE TESTS RESULT OUT OF RANGE REFERENCE UNITS LAB L100.1000 4.4-11.0 K/mm3 High WBC 11.2 LAB L100.1200 4.2-5.4 M/mm3 Normal RBC 5.31 LAB L100.1300 12.0-15.0 g/dl High HGB 16.8 LAB L100.1400 37-47 % High HCT 49.2 LAB L100.1500 81-99 fL Normal MCV 92.7 LAB L100.1600 27.0-32.0 pg Normal MCH 31.6 LAB L100.1700 32-36 g/gl Normal MCHC 34.1 LAB L100.1810 11.6-14.6 % Normal RDW CV 14.1 LAB L100.1820 35.1-43.9 fl High RDW SD 46.5 LAB L100.1900 150-450 K/mm3 Normal PLT 248 LAB L100.2000 6.2-12.0 fl Normal MPV 10.6 LAB L100.2100 47-70 % Normal NEUT% 58.0 LAB L100.2200 19-41 % Normal LY% 33.4 LAB L100.2300 0-10 % Normal MONO% 7.4 LAB L100.2400 0-5 % Normal EO% 0.6 LAB L100.2500 0-1 % Normal BASO% 0.4 LAB L100.2550 0.0-0.9 % Normal IM GRAN % 0.200 Result Comment: IG% - Immature Granulocytes (promyelocytes, myelocytes and metamyelocytes) > 1% indicates that a LEFT SHIFT is Present. LAB L100.2620 2.0-7.7 X10 3/uL Normal Absolute Neut 6.5 LAB L100.2720 0.83-4.51 X10 3/ul Normal Absolute Lymph 3.74 Performed By: #### L100.0100 #### [facility] [address] [place], [address] BASIC METABOLIC Collected: 08/03/2017 Status: F Source: [place] PROFILE ([facility]) 4:17 PM [facility] TYPE CODE TESTS RESULT OUT OF RANGE REFERENCE UNITS LAB L501.0100 70-110 mg/dL Normal GLU 85 LAB L501.1000 7-18 mg/dL Normal BUN 8 LAB L501.1100 0.55-1.02 mg/dL Normal 0.71 CREAT,SERUM Result Comment: The validity of the calculated GFR AND GFRAA in patients over 70 years has not been determined. Clinical correlation is essential. LAB L501.1110 >60 mL/min Normal EST GFR 92 Result Comment: Non- GFR Calc LAB L501.1115 >60 mL/min Normal EST GFR - AA 111 Result Comment: GFR Calc LAB L501.1300 10-20 RATIO Normal BUN/CRE 11.3 LAB L501.2200 8.5-10.1 mg/dL CA Normal 9.2 LAB L501.5300 136-145 mmol/L NA Normal 140 LAB L501.5600 3.5-5.1 mmol/L K Normal 4.4 Result Comment: Slight Hemolysis, Result may be falsely increased. LAB L501.5900 98-107 mmol/L Normal CL 107 LAB L501.6100 21.0-32.0 mmol/L Normal CO2 25.0 LAB L501.6200 5-15 Normal 8 GAP Performed By: #### L500.2500, L501.5200, L501.9520, L506.0400 #### [facility] [address] [place], [address] MAGNESIUM Collected: 08/03/2017 Status: F Source: [place] 4:17 PM [facility] [place] TYPE CODE TESTS RESULT OUT OF RANGE REFERENCE UNITS LAB L501.5200 1.6-2.6 mg/dL Normal MG 2.0 Result Comment: Please note revised Magnesium reference range effective 2017. Slight Hemolysis, Result may be falsely increased. Performed By: #### L500.2500, L501.5200, L501.9520, L506.0400 #### [facility] [place], [address] THYROID STIM HORMONE Collected: 08/03/2017 Status: F Source: [place] (TSH) 4:17 PM [facility] TYPE CODE TESTS RESULT OUT OF RANGE REFERENCE UNITS LAB L501.9520 0.358-3.74 uIU/mL Low TSH 0.21 Performed By: #### L500.2500, L501.5200, L501.9520, L506.0400 #### [facility] [address] [place], [address] T4 FREE DIRECT Collected: 08/03/2017 Status: F Source: [place] 4:17 PM [facility] [place] TYPE CODE TESTS RESULT OUT OF RANGE REFERENCE UNITS LAB L506.0400 0.76-1.46 ng/dL Normal T4 FREE 1.31 DIRECT Performed By: #### L500.2500, L501.5200, L501.9520, L506.0400 #### [facility] [address] [place], [address] T3 TOTAL - TRIIODOTHYRONINE Collected: 08/03/2017 Status: F Source: [place] 4:17 PM [facility] TYPE CODE TESTS RESULT OUT OF RANGE REFERENCE UNITS LAB L501.9186 0.6-1.81 ng/mL Normal T3 Total 0.98 Performed By: #### L501.9186, L506.1000 #### [facility] [address] [place], [address] VITAMIN D,25 HYDROXY Collected: 08/03/2017 Status: F Source: [place] 4:17 PM [facility] TYPE CODE TESTS RESULT OUT OF RANGE REFERENCE UNITS LAB L506.1000 ng/mL Normal Vitamin D 35.7 25-OH Result Comment: Vitamin D 25(OH) Status Range Deficiency <20 ng/mL (50nmol/L) Insuffciency 20 - 30 ng/mL (50 - 75 nmol/L) Sufficiency 30 - 100 ng/mL (75 - 250 nmol/L) Toxicity >100 ng/mL (>250 nmol/L) Performed By: #### L501.9186, L506.1000 #### [facility] [address] [place], [place], [address] PTHIN Collected: 08/03/2017 Status: F Source: [place] 4:17 PM [facility] TYPE CODE TESTS RESULT OUT OF RANGE REFERENCE UNITS LAB L509.1000 18.4-80.1 pg/mL Normal PTHIN 53.2 Result Comment: Please Note: PTH INTACT METHOD AND REFERENCE RANGE CHANGE Effective 06/28/2017. Performed By: #### L509.1000 #### [facility] [address] [place], [address] T3 REVERSE Collected: 08/03/2017 Status: F Source: [place] 4:17 PM [facility] Order Comment: Has Patient had Radioactive Injection for X-ray?: N TYPE CODE TESTS RESULT OUT OF REFERENCE UNITS RANGE LAB L3300.7100 9.2-24.1 ng/dL T3 High REVERSE 25.8 Result Comment: Performed at: [address] [id number] Case Work Aide: Patrick An MD, Phone: [phone] Performed By: #### L3300.7100 #### [facility] (refer to report for specific site) refer to report for address and phone number ALLERGIES ALLERGIES DATE TYPE / NAME / CODE REACTION SEVERITY SOURCE CODE 04/21/2014 Drug hydroxyzine Other Unknown [place] Allergy/41 HCl/[id number](RXN Community [id number]([facility]) Repository 04/21/2014 Drug hydroxyzine Other Unknown [place] Allergy/41 pamoate/[id number] [facility] [id number]( (RXNORM) [facility]) Repository 04/21/2014 Drug venlafaxine Other Unknown [place] Allergy/41 HCl/[id number](RXN Community [id number] [place] [address]) Repository 04/21/2014 Drug escitalopram Other Unknown [place] Allergy/41 oxalate/[id number] [facility] [id number]( ([facility]) [facility]) Repository 04/21/2014 Drug Penicillins/D18066 Anaphylaxis Unknown [place] Allergy/41 0476(RXNORM) [facility] 6672393([facility]) Repository 04/21/2014 Drug codeine/[id number] Anaphylaxis Unknown [place] Allergy/41 (RXNORM) [facility] [id number]([facility]) Repository 04/21/2014 Drug Rho(D) immune Hives Unknown [place] Allergy/41 globulin/[id number] [facility] 3531772([facility](RXNORM) [facility]) Repository Drug/88424 codeine . [facility]([facility]) System Repository Drug/20024 penicillin . [facility]) System Repository ENCOUNTERS ENCOUNTERS ADMIT/DISCHARGE ACCOUNT NUMBER ADMITTING ENCOUNTER LOCATION SOURCE CLASS 07/27/2018 [id number] [facility] ding:[facility] Repository 07/18/2018 [id number] [facility] ding:[facility] Repository 06/26/2018 [id number] [facility] ding:[facility] Repository 06/21/2018 [id number] [facility] ding:LAB.FUT Repository URE 06/18/2018 [id number] [facility] ding:US Repository 06/05/2018 [id number] [facility] ding:LAB.FUT Repository URE 05/28/2018 [id number] GOODMAN CHERRY, [facility] [place] :OUTPATIENT 12/26/2017 [id number] [facility] ding:LAB Repository 12/13/[id number] Girish Ambulatory [facility] Repository 10/14/2017/10/15/19 [id number] Jc Walsh [address] ding:[facility] EDRoom: WR Repository 09/25/2017 [id number] [facility] ding:LAB.FUT Repository URE 09/11/2017 [id number] [facility] ding:LAB Repository 08/03/2017 [id number] [facility] ding:MFPLAB Repository PAYERS PAYERS ENCOUNTER GUARANTOR PAYER SUBSCRIBER SOURCE 07/27/2018 [place] Primary Insurance:WPS [place] [id number] [facility] Number: [id number] [id number] Repository [place] [address]Uqr: Date:[id number] [address] [place], [place] [address] () [address]FE: 07/27/2018 Secondary NOT GIVENUNK [place] Insurance:SELF PAY [facility] Number: Effective Repository Date:2018-07-27 07/18/2018 MERY [place] Primary EVANGELISTA Trejo [place] [id number] Insurance: [facility] Number: [id number] [id number] Repository [place] [address]Akn: Date:[id number] NET FEDERAL (HP) SERVICESPO [address] [address]KT: 07/18/2018 Secondary NOT GIVENUNK [place] Insurance:SELF PAY [facility] Number: Effective Repository Date:2018-07-18 06/26/2018 MERY [place] Primary EVANGELISTA [place] [id number] Insurance:[facility]: [facility] Number: [id number] [facility] [id number] [place]ository [place] [address]Egk: Date:0708-33-65CRESPO NET FEDERAL (HP) SERVICESPO [address] [place] [phone]: 06/26/2018 Secondary NOT GIVENUNK [place] Insurance:SELF PAY [facility] Number: Effective Repository Date:2018-06-26 06/21/2018 MERY [place] Primary EVANGELISTA Barretooster [id number] Insurance:[facility]: [facility] Number: [id number] [facility] South Shore Hospital [id number] [place]ository [place] [address]Xke: Date:9163-01-33GPMATA NET FEDERAL (HP) SERVICESPO [address] [place] [phone]: 06/21/2018 Secondary NOT GIVENUNK [place] Insurance:SELF PAY [facility] Number: Effective Repository Date:2018-06-18 06/18/2018 MERY [place] Primary EVANGELISTAFARHEEN Barretooster [id number] N Insurance:[facility]: [facility] Number: [id number] [facility] [id number] Repository [place] [address]Bay: Date:5120-30-30AJAYPO NET FEDERAL (HP) SERVICESPO [address] [address]QW: 06/18/2018 Secondary NOT GIVENUNK [place] Insurance:SELF PAY [facility] Number: Effective Repository Date:2018-06-05 06/05/2018 Mery L Primary EVANGELISTA Quezada [id number] Insurance: [facility] [place] [facility] Number: [id number] [facility], [id number] [place]ository [place] [address]Zem: Date:6499-72-97JPDCYX [facility] () [facility] [address] [address]EW: 06/05/2018 Secondary NOT GIVENUNK [place] Insurance:SELF PAY [facility] Number: Effective Repository Date:2018-06-05 12/26/2017 Mery L Primary EVANGELISTA Trejo [place] [id number] N Insurance: [facility] Number: [id number] [facility], [id number] [place]ository [place] [address]Tzx: Date:2017-12-26 (HP) 12/26/2017 Secondary NOT GIVENUNK [place] Insurance:SELF PAY [facility] Number: Effective Repository Date:2017-12-26 12/13/2017 Primary MERY [facility] Insurance:TricarePoli [place]DOB: [place] and Number: [id number] [facility] [id number] [address] [place] [address] Repository Date:[place], [place] Name:[facility] [address]Gwa: [phone] [id number], [phone] (HP) [place] [address]MD: 10/14/2017 MERY L Primary MERY L API HealthcareB: Insurance:TRICAREPoli [facility] [id number] cy Number: Effective [id number] System [place] Date:2017-10-14 - [place] Repository [facility] [id number], [place] [address]Tyd: Name:[place], [place] [address]Oyv: [id number] [place]ACH, (HP) [place] [id number]: (571) (HP) [phone] () 09/25/2017 Mery [place] Primary EVANGELISTA Trejo [place] [id number] N Insurance: [place]DOB: [place] PGBAPolicy Number: [id number] Ranch Medical Center, [id number] [place]ository [place] [address]Cpe: Date:5948-05-62ASTFIK NET FEDERAL (HP) SERVICESPO [id number] [place] [address]WK: 09/25/2017 Secondary NOT GIVENUNK [place] Insurance:SELF PAY [facility] Number: Effective Repository Date:2017-08-16 09/11/2017 Mery [place] Primary EVANGELISTA Trejo [place] [id number] N Insurance: [place] MIDDLETONDOB: [place] [facility] CenterBAPolic Number: [id number] Ranch Medical Center, [id number] [place]ository [place] [address]Ihv: Date:0948-13-83PTSOYI NET FEDERAL (HP) SERVICESPO [address] [place] [address]GH: 09/11/2017 Secondary NOT GIVENUNK [place] Insurance:SELF PAY [facility] Number: Effective Repository Date:2017-09-11 08/03/2017 Mery [place] Primary EVANGELISTA G [place] [id number] Insurance: [place]EDOB: [place] [facility] CenterBAPolwashington county hospital [facility] Number: [id number] Ranch Medical Center, [id number] [place]ository [place] [address]Wdq: Date:4845-05-58EUBJXP NET FEDERAL (HP) SERVICESPO [id number] [place] [phone]: 08/03/2017 Secondary NOT GIVENUNK [place] Insurance:SELF PAY [facility] Number: Effective Repository Date:2017-08-03
== END ==
PROVIDERS: Family Provider Family Medicine; PCP Family Medicine
DX: C73 Malignant neoplasm of thyroid gland (principal); E55.9 Vitamin D deficiency, unspecified; E27.9 Disorder of adrenal gland, unspecified; E23.7 Disorder of pituitary gland, unspecified
CPT/HCPCS: 36415; 80048; 80076; 82024; 82088; 82306; 82330; 82533; 82627; 82652; 82670; 83001; 83002; 83003; 83735; 83930; 83935; 83970; 84100; 84146; 84244; 84300; 84305; 84432; 84439; 84443; 84481; 85027; 86800; 82626

== ENCOUNTER → 2018-06-26 12:51 | Outpatient (CLI) | payer OTHER, SELFPAY ==
--- OUTSIDE RECORDS SUMMARY | 2018-09-27 23:03 | XMS RPT_ITS ---
:1960 Author Organization OHIP Support Name Relationship Address Phone EAGLES Unavailable [address] + [place] [address] STEFANIE PIERRE Unavailable [address] + [place] [address] BREANNA DE PAZ Unavailable Unavailable + [place] [address] EAGLES Unavailable [address] + [place] [address] STEFANIE PIERRE Unavailable [address] + [place] [address] BERANNA DE PAZ Unavailable Unavailable + [place] [address] EAGLES Unavailable [address] + [place] [address] STEFANIE PIERRE Unavailable [address] + [place] [address] BREANNA DE PAZ Unavailable Unavailable + [place] [address] EAGLES Unavailable [address] + [place] [address] STEFANIE PIERRE Unavailable [address] + [place] [address] BREANNA DE PAZ Unavailable Unavailable + [place] [address] STEFANIE PIERRE Unavailable [address] + [place] [address] BREANNA DE PAZ Unavailable Unavailable + [place] [address] UE Unavailable Unavailable Unavailable STEFANIE PIERRE Unavailable [address] + [place] [address] UE Unavailable Unavailable Unavailable KAVYA HOLDEN Unavailable Unavailable + STEFANIE PIERRE Unavailable [address] + [place] [address] UE Unavailable Unavailable Unavailable STEFANIE PIERRE Unavailable [address] + [place] [address] UE Unavailable Unavailable Unavailable STEFANIE PIERRE Unavailable [address] + [place] [address] UE Unavailable Unavailable Unavailable STEFANIE PIERRE Unavailable / + [place] [address] UE Unavailable Unavailable Unavailable Care Team Providers Name Role Phone GURINDER BROOKE Attending Unavailable GURINDRE BROOKE Referring Unavailable Sky, Roberto Primary Care Unavailable GURINDER BROOKE Attending Unavailable GURINDER BROOKE Referring Unavailable Sky, Roberto Primary Care Unavailable Sky, Roberto Attending Unavailable Sky, Roberto Referring Unavailable Sky, Roberto Primary Care Unavailable Sky, Roberto Attending Unavailable Sky, Roberto Primary Care Unavailable GURINDER BROOKE Attending Unavailable GURINDER BROOKE Referring Unavailable GURINDER BROOKE Attending Unavailable Sky, Roberto Primary Care Unavailable GAMALIEL GARCIA Attending Unavailable GAMALIEL GARCIA Referring Unavailable Sky, Roberto Primary Care Unavailable GURINDER BROOKE Attending Unavailable Sky, Roberto Primary Care Unavailable GURINDER BROOKE Attending Unavailable GURINDER BROOKE Referring Unavailable Sky, Roberto Primary Care Unavailable GURINDER BROOKE Consulting Unavailable Sky, Roberto Primary Care Unavailable GURINDER BROOKE Attending Unavailable GURINDER BROOKE Referring Unavailable Jillian Jc W Admitting Unavailable Jillian Jc W Attending Unavailable Sky, Roberto A Primary Care Unavailable Dr. Gamaliel Garcia Admitting Unavailable Dr. 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 / Hospital C73(ICD-10) Repository 05/28/2018 Admitting THYROID CA / GOODMAN CHERRY, Active [facility] diagnosis 193(ICD-9) [facility] Repository 05/28/2018 Unknown THYROID CA / GOODMAN CHERRY, Active [facility] 193(ICD-9) [facility] Repository 05/28/2018 Admitting MALIGNANT NEOPLASM GOODMAN CHERRY, [facility] diagnosis OF THYROID GLAND / [facility] C73(ICD-10) Repository 05/28/2018 Unknown MALIGNANT NEOPLASM GOODMAN CHERRY, Active [facility] OF THYROID GLAND / [facility] C73(ICD-10) Repository 09/25/2017 Unknown E03.9 - GURINDER BROOKE Active [place] Hypothyroidism, Community unspecified / Hospital E03.9(ICD-10) Repository 09/11/2017 Unknown E24.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, [address] MISCELLANEOUS LAB Collected: 07/18/2018 Status: F Source: [place] PROCEDURE 12:00 AM [facility] REPOSITORY Order Comment: Comments: [id number] cortisol salivary refridgerated Test(s) Ordered: [id number] cortisol salivary refridgerated TYPE CODE TESTS RESULT OUT OF RANGE REFERENCE UNITS LAB L801.1541 Normal [facility] LAB TEST Result Comment: TEST RESULT UNITS REF INTERVAL Salivary Cortisol,MS Salivary Cortisol, MS 0.054 ug/dL Reference Range: Children and Adults: 8:00a.m.: 0.025 - 0.600 Noon: <0.010 - 0.330 4:00p.m.: 0.010 - 0.200 Midnight: <0.010 - 0.090 TESTING PERFORMED AT [facility]. ORIGINAL REPORT ON FILE IN LAB CONTAINS ADDITIONAL TEST SITE INFORMATION. Performed By: #### L801.1541 #### [place] [facility] [address] [place], [address] CBC-COMPLETE BLOOD CNT Collected: 06/21/2018 Status: F Source: [place] NO DIFF 8:36 AM [facility] REPOSITORY TYPE CODE TESTS RESULT OUT OF [...] MPV 10.3 Performed By: #### L100.0500 #### [facility] [address] [place], [place], [address] OSMOLALITY, URINE Collected: 06/21/2018 Status: F Source: [place] 8:36 AM [facility] REPOSITORY TYPE CODE TESTS RESULT OUT OF RANGE REFERENCE UNITS LAB L501.7400 mOsm/KG Normal 671 OSMOLALITY,U R Result Comment: OSMOLALITY URINE REFERENCE INTERVALS 24-hour Urine 300 - 900 mOsm/kg Random Urine 50 - 1400 mOsm/kg After 12 Hr fluid restriction >850 mOsm/kg Performed By: #### L501.7400, L501.5500 #### [facility] [address] [place], [address] URINE SODIUM Collected: 06/21/2018 Status: F Source: [place] 8:36 AM [facility] REPOSITORY TYPE CODE TESTS RESULT OUT OF RANGE REFERENCE UNITS LAB L501.5500 Not Establ. mmol/L Normal UR NA 142 Performed By: #### L501.7400, L501.5500 #### [facility] [address] [place], [address] OSMOLALITY, SERUM Collected: 06/21/2018 Status: F Source: [place] 8:36 AM [facility] REPOSITORY TYPE CODE TESTS RESULT OUT OF RANGE REFERENCE UNITS LAB L501.7300 275-295 mOsm/KG High 297 OSMOLALITY,S ER Performed By: #### L501.7300 #### [facility] [address] [place], [address] VITAMIN D,25 HYDROXY Collected: 06/21/2018 Status: F Source: [place] 8:36 AM [facility] REPOSITORY Order Comment: Comments: [id number] METANEPHRINES TYPE CODE TESTS RESULT OUT OF REFERENCE UNITS RANGE LAB L506.1000 29.95-100.01 ng/mL Low Vitamin D 26.2 25-OH Result Comment: Vitamin D 25(OH) Status Range Deficiency <20 ng/mL (50nmol/L) Insuffciency 20 - 30 ng/mL (50 - 75 nmol/L) Sufficiency 30 - 100 ng/mL (75 - 250 nmol/L) Toxicity >100 ng/mL (>250 nmol/L) Performed By: #### L506.1000, L509.6000 #### [facility] [address] [place], [address] CORTISOL SERUM Collected: 06/21/2018 Status: F Source: [place] 8:36 AM [facility] REPOSITORY Order Comment: Comments: [id number] METANEPHRINES TYPE CODE TESTS RESULT OUT OF RANGE REFERENCE UNITS LAB L509.6000 3.09-22.40 ug/dL Normal CORTISOL 13.90 Result Comment: Adult (AM) 4.30 - 22.40 ug/dL Adult (PM) 3.09 - 16.66 ug/dL Performed By: #### L506.1000, L509.6000 #### [facility] [address] [place], [address] BASIC METABOLIC Collected: 06/21/2018 Status: F Source: [place] PROFILE (BMP) 8:36 AM [facility] REPOSITORY Order Comment: Has Patient had X-rays with Contrast this admission? N Comments: [id number] METANEPHRINES TYPE CODE TESTS RESULT OUT OF [...] Performed By: #### L500.2500, L500.3400, L501.2300, L501.5200, L501.33291, L501.9520, L506.0400, L3100.5125, L3100.5170, L3100.5420, L3300.1750 #### [facility] [address] [place], [address] LIVER PROFILE Collected: 06/21/2018 Status: F Source: [place] 8:36 AM [facility] REPOSITORY Order Comment: Has Patient had X-rays with Contrast this admission? N Comments: [id number] METANEPHRINES TYPE CODE TESTS RESULT OUT OF [...] Performed By: #### L500.2500, L500.3400, L501.2300, L501.5200, L501.25107, L501.9520, L506.0400, L3100.5125, L3100.5170, L3100.5420, L3300.1750 #### [facility] [address] [place], [place], [id number] PHOSPHORUS Collected: 06/21/2018 Status: F Source: [place] 8:36 AM [facility] REPOSITORY Order Comment: Has Patient had X-rays with Contrast this admission? N Comments: [id number] METANEPHRINES TYPE CODE TESTS RESULT OUT OF RANGE REFERENCE UNITS LAB L501.2300 2.5-4.9 mg/dL Normal PHOS 3.8 Performed By: #### L500.2500, L500.3400, L501.2300, L501.5200, L501.40729, L501.9520, L506.0400, L3100.5125, L3100.5170, L3100.5420, L3300.1750 #### [facility] [address] [place], [place], [id number] MAGNESIUM Collected: 06/21/2018 Status: F Source: [place] 8:36 AM [facility] REPOSITORY Order Comment: Has Patient had X-rays with Contrast this admission? N Comments: [id number] METANEPHRINES TYPE CODE TESTS RESULT OUT OF RANGE REFERENCE UNITS LAB L501.5200 1.6-2.6 mg/dL Normal MG 2.1 Performed By: #### L500.2500, L500.3400, L501.2300, L501.5200, L501.78421, L501.9520, L506.0400, L3100.5125, L3100.5170, L3100.5420, L3300.1750 #### [facility] [address] [place], [place], [address] FREE T3 Collected: 06/21/2018 Status: F Source: [place] 8:36 AM [facility] REPOSITORY Order Comment: Has Patient had X-rays with Contrast this admission? N Comments: [id number] METANEPHRINES TYPE CODE TESTS RESULT OUT OF RANGE REFERENCE UNITS LAB L501.82725 2.18-3.98 pg/mL Normal FREE T3 3.5 Performed By: #### L500.2500, L500.3400, L501.2300, L501.5200, L501.63925, L501.9520, L506.0400, L3100.5125, L3100.5170, L3100.5420, L3300.1750 #### [facility] [address] [place], [place], [address] THYROID STIM HORMONE Collected: 06/21/2018 Status: F Source: [place] (TSH) 8:36 AM [facility] REPOSITORY Order Comment: Has Patient had X-rays with Contrast this admission? N Comments: [id number] METANEPHRINES TYPE CODE TESTS RESULT OUT OF RANGE REFERENCE UNITS LAB L501.9520 0.358-3.74 uIU/mL Low TSH 0.02 Performed By: #### L500.2500, L500.3400, L501.2300, L501.5200, L501.36728, L501.9520, L506.0400, L3100.5125, L3100.5170, L3100.5420, L3300.1750 #### [facility] [address] [facility] [place], [place], [address] T4 FREE DIRECT Collected: 06/21/2018 Status: F Source: [place] 8:36 AM [facility] REPOSITORY Order Comment: Has Patient had X-rays with Contrast this admission? N Comments: [id number] METANEPHRINES TYPE CODE TESTS RESULT OUT OF RANGE REFERENCE UNITS LAB L506.0400 0.76-1.46 ng/dL Normal T4 FREE 1.18 DIRECT Performed By: #### L500.2500, L500.3400, L501.2300, L501.5200, L501.22777, L501.9520, L506.0400, L3100.5125, L3100.5170, L3100.5420, L3300.1750 #### [facility] [address] [place], [place], [address] FOLLICLE STIMULATING Collected: 06/21/2018 Status: F Source: [place] HORMONE 8:36 AM [facility] REPOSITORY Order Comment: Has Patient had X-rays with Contrast this admission? N Comments: [id number] METANEPHRINES TYPE CODE TESTS RESULT OUT OF [...] Performed By: #### L500.2500, L500.3400, L501.2300, L501.5200, L501.16694, L501.9520, L506.0400, L3100.5125, L3100.5170, L3100.5420, L3300.1750 #### [facility] [address] [place], [place], [address] LUTEINIZING HORMONE Collected: 06/21/2018 Status: F Source: [place] 8:36 AM [facility] REPOSITORY Order Comment: Has Patient had X-rays with Contrast this admission? N Comments: [id number] METANEPHRINES TYPE CODE TESTS RESULT OUT OF [...] Performed By: #### L500.2500, L500.3400, L501.2300, L501.5200, L501.52093, L501.9520, L506.0400, L3100.5125, L3100.5170, L3100.5420, L3300.1750 #### [facility] [address] [place], [place], [address] (655) PROLACTIN Collected: 06/21/2018 Status: F Source: [place] 8:36 AM [facility] REPOSITORY Order Comment: Has Patient had X-rays with Contrast this admission? N Comments: [id number] METANEPHRINES TYPE CODE TESTS RESULT OUT OF RANGE REFERENCE UNITS LAB L3100.5420 ng/mL Normal PROLACTIN 5.6 Result Comment: NORMAL REFERENCE RANGES FEMALE NON- 2.2 - 30.3 ng/mL 8.1 - 347.6 ng/mL POST-MENOPAUSAL 0.7 - 31.5 ng/mL MALE 2.5 - 17.4 ng/mL NEW TEST METHOD AND REFERENCE RANGES NOVEMBER 28, 2011 Performed By: #### L500.2500, L500.3400, L501.2300, L501.5200, L501.22820, L501.9520, L506.0400, L3100.5125, L3100.5170, L3100.5420, L3300.1750 #### [facility] [address] [place], [place], [address] ESTRADIOL Collected: 06/21/2018 Status: F Source: [place] 8:36 AM [facility] REPOSITORY Order Comment: Has Patient had X-rays with Contrast this admission? N Comments: [id number] METANEPHRINES TYPE CODE TESTS RESULT OUT OF [...] Performed By: #### L500.2500, L500.3400, L501.2300, L501.5200, L501.29152, L501.9520, L506.0400, L3100.5125, L3100.5170, L3100.5420, L3300.1750 #### [facility] [address] [facility] [place], [address] PTHIN Collected: 06/21/2018 Status: F Source: [place] 8:36 AM [facility] REPOSITORY TYPE CODE TESTS RESULT OUT OF RANGE REFERENCE UNITS LAB L509.1000 18.4-80.1 pg/mL Normal PTHIN 62.9 Performed By: #### L509.1000 #### [facility] [address], [address] VITAMIN D 1,25-DIHYDROXY Collected: 06/21/2018 Status: F Source: [place] 8:36 AM [facility] REPOSITORY TYPE CODE TESTS RESULT OUT OF RANGE REFERENCE UNITS LAB L3300.0960 19.9-79.3 pg/mL Normal VITD 1,25 38.1 23576 Result Comment: Performed at: [facility] [address] [id number] Filteration Operator: Gallo Elaine MD, Phone: [phone] Performed By: #### L3300.0960 #### [facility] (refer to report for specific site) refer to report for address and phone number CALCIUM IONIZED Collected: 06/21/2018 Status: F Source: [place] 8:36 AM [facility] REPOSITORY Order Comment: Has Patient had X-rays with Contrast this admission? N Comments: [id number] METANEPHRINES Has Patient had Radioactive Injection for X-ray?: N TYPE CODE TESTS RESULT OUT OF RANGE REFERENCE UNITS LAB L3100.9600 4.5-5.6 mg/dL Normal IONIZED CA 5.4 Performed By: #### L3100.9600, L3300.1000, L3300.1100, L3300.1500, L3300.6820, L3400.1300, L3400.1375, L3400.4000 #### [facility] (refer to report for specific site) refer to report for address and phone number ADRENOCORTICOTROPIC HORMONE Collected: Status: F Source: [place] 06/21/2018 8:36 AM [facility] REPOSITORY Order Comment: Has Patient had X-rays with Contrast this admission? N Comments: [id number] METANEPHRINES Has Patient had Radioactive Injection for [...] 06/21/2018 Status: F Source: [place] 8:36 AM [facility] REPOSITORY Order Comment: Has Patient had X-rays with Contrast this admission? N Comments: [id number] METANEPHRINES Has Patient had Radioactive Injection for [...] 06/21/2018 Status: F Source: [place] 8:36 AM [facility] REPOSITORY Order Comment: Has Patient had X-rays with Contrast this admission? N Comments: [id number] METANEPHRINES Has Patient had Radioactive Injection for [...] Status: F Source: [place] AB 8:36 AM [facility] REPOSITORY Order Comment: Has Patient had X-rays with Contrast this admission? N Comments: [id number] METANEPHRINES Has Patient had Radioactive Injection for X-ray?: N TYPE CODE TESTS RESULT OUT OF RANGE REFERENCE UNITS LAB L3300.7025 0.0-0.9 IU/mL Normal ANTI-TG < 1.0 AB Result Comment: Thyroglobulin Antibody measured by [facility] Methodology LAB L3400.1030 1.5-38.5 ng/mL Low THYROGLOB [...] is 0.1 ng/mL Thyroglobulin measured by Leobardo Amoret Immunometric Assay Performed By: #### L3100.9600, L3300.1000, L3300.1100, L3300.1500, L3300.6820, L3400.1300, L3400.1375, L3400.4000 #### [facility] (refer to report for specific site) refer to report for address and phone number SOMATOMEDIN C Collected: 06/21/2018 Status: F Source: [place] 8:36 AM [facility] REPOSITORY Order Comment: Has Patient had X-rays with Contrast this admission? N Comments: [id number] METANEPHRINES Has Patient had Radioactive Injection for X-ray?: N TYPE CODE TESTS RESULT OUT OF RANGE REFERENCE UNITS LAB L3400.1300 53-190 ng/mL Normal SOMATOM 130 [id number] Performed By: #### L3100.9600, L3300.1000, L3300.1100, L3300.1500, L3300.6820, L3400.1300, L3400.1375, L3400.4000 #### [facility] (refer to report for specific site) refer to report for address and phone number GROWTH HORMONE Collected: 06/21/2018 Status: F Source: [place] 8:36 AM [facility] REPOSITORY Order Comment: Has Patient had X-rays with Contrast this admission? N Comments: [id number] METANEPHRINES Has Patient had Radioactive Injection for [...] 06/21/2018 Status: F Source: [place] 8:36 AM [facility] REPOSITORY Order Comment: Has Patient had X-rays with Contrast this admission? N Comments: [id number] METANEPHRINES Has Patient had Radioactive Injection for [...] Status: F Source: [place] PROCEDURE 8:36 AM [facility] REPOSITORY Order Comment: Comments: [id number] METANEPHRINES Test(s) Ordered: [id number] METANEPHRINES TYPE CODE TESTS RESULT OUT OF RANGE REFERENCE UNITS LAB L801.1541 Normal [facility] LAB TEST Result Comment: TEST RESULT UNITS [...] metanephrines and plasma catecholamines. TESTING PERFORMED AT [facility]. ORIGINAL REPORT ON FILE IN LAB CONTAINS ADDITIONAL TEST SITE INFORMATION. Performed By: #### L801.1541 #### [facility] [address] [facility] 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 Pleitez, It was noted that [...] Status: F Source: [place] (TSH) 3:06 PM [facility] REPOSITORY TYPE CODE TESTS RESULT OUT OF RANGE REFERENCE UNITS LAB L501.9520 0.358-3.74 uIU/mL Low TSH 0.08 Performed By: #### L501.9520 #### [facility] [address] [place], [address] THYROGLOBULIN ANTIBODY Collected: 12/26/2017 Status: F Source: [place] 3:06 PM [facility] REPOSITORY TYPE CODE TESTS RESULT OUT OF RANGE REFERENCE UNITS LAB L3300.7027 0.0-0.9 IU/mL Normal TG AB < 1.0 Result Comment: Thyroglobulin Antibody measured by Leobardo Amoret Methodology Performed at: - [facility] [address] [id number] Filteration Operator: Sudhir Trinidad PhD, Phone: [phone] Performed By: #### L3300.7027 #### [facility] (refer to report for specific site) refer to report for address and phone number [phone] WHOLE BODY Observed: 12/14/2017 Status: F Source: [facility] SCAN 10:15 AM [facility] REPOSITORY Final Report Accession No: [id number] Performed: Dec 14 2017 10:15AM Examination: [...] BRAIN W/O Observed: 10/14/2017 Status: F Source: [place] 1:37 AM [facility] REPOSITORY Exam Date/Time: 10/14/2017 01:54 EDT Reason [...] CERVICAL W/O Observed: 10/14/2017 Status: F Source: [place] 1:37 AM [facility] REPOSITORY Exam Date/Time: 10/14/2017 01:54 EDT [...] GABRIELLA ETHANOL Collected: 10/14/2017 Status: F Source: [place] 1:36 AM [facility] REPOSITORY TYPE CODE TESTS RESULT OUT OF RANGE REFERENCE UNITS LAB [id number](L 0-15 mg/dL OINC) Abnormal Alert Ethanol Lvl 358 Result Comment: Critical Result ETOH: Called to: JAY ESQUIVEL at: 01:52:41 by:NICOLAS Read back by:JAY ESQUIVEL SAMPLES WITH CONCENTRATIONS <15 MG/DL SHOULD BE INTERPRETED NEGATIVE. FOR MEDICAL USE ONLY Performed By: #### [id number] #### [facility] [address] [place] [address] INSULIN Collected: 09/25/2017 Status: F Source: [place] 10:41 AM [facility] REPOSITORY TYPE CODE TESTS RESULT OUT OF RANGE REFERENCE UNITS LAB [id number] 2.6-37.6 mU/L Normal Insulin 9.8 Result Comment: Please Note: INSULIN METHOD AND REFERENCE RANGE CHANGE Effective 07/20/2017. Performed By: #### [id number] #### [facility] [address] [place], [place], [address] BASIC METABOLIC Collected: 09/25/2017 Status: F Source: [place] PROFILE (BMP) 10:41 AM [facility] REPOSITORY TYPE CODE TESTS RESULT OUT OF [...] GAP 7 Performed By: #### L500.2500, L500.4100, L501.34350, L501.9310, L501.9520 #### [facility] [address] [place], [place], [address] LIPID PROFILE Collected: 09/25/2017 Status: F Source: [place] 10:41 AM [facility] REPOSITORY TYPE CODE TESTS RESULT OUT OF [...] VLDL 18 Performed By: #### L500.2500, L500.4100, L501.22098, L501.9310, L501.9520 #### [facility] [address] [place], [place], [address] FREE T3 Collected: 09/25/2017 Status: F Source: [place] 10:41 AM [facility] REPOSITORY TYPE CODE TESTS RESULT OUT OF RANGE REFERENCE UNITS LAB L501.03995 2.18-3.98 pg/mL Normal FREE T3 3.2 Performed By: #### L500.2500, L500.4100, L501.36373, L501.9310, L501.9520 #### [facility] [address] [place], [place], [address] T4 TOTAL, THYROXIN Collected: 09/25/2017 Status: F Source: [place] 10:41 AM [facility] REPOSITORY TYPE CODE TESTS RESULT OUT OF RANGE REFERENCE UNITS LAB L501.9310 4.8-13.9 ug/dL T4 Normal THYROXIN 13.0 Performed By: #### L500.2500, L500.4100, L501.12919, L501.9310, L501.9520 #### [facility] [address] [facility] [place], [place], [address] THYROID STIM HORMONE Collected: 09/25/2017 Status: F Source: [place] (TSH) 10:41 AM [facility] REPOSITORY TYPE CODE TESTS RESULT OUT OF RANGE REFERENCE UNITS LAB L501.9520 0.358-3.74 uIU/mL Low TSH 0.05 Performed By: #### L500.2500, L500.4100, L501.78617, L501.9310, L501.9520 #### [place] [facility] [address] [facility] [place], [place], [address] THYROGLOBULIN ANTIBODY Collected: 09/25/2017 Status: F Source: [place] 10:41 AM [facility] REPOSITORY TYPE CODE TESTS RESULT OUT OF RANGE REFERENCE UNITS LAB L3300.7027 0.0-0.9 IU/mL Normal TG AB < 1.0 Result Comment: Thyroglobulin Antibody measured by Leobardo [employer] Methodology Performed at: - [facility] [id number] Filteration Operator: Sudhir Trinidad PhD, Phone: [phone] Performed By: #### L3300.7027 #### [facility] (refer to report for specific site) refer to report for address and phone number THYROGLOBULIN W/ANTI-TG Collected: 09/25/2017 Status: F Source: [place] AB 10:41 AM [facility] CENTER REPOSITORY TYPE CODE TESTS RESULT OUT OF RANGE REFERENCE UNITS LAB L3300.7025 0.0-0.9 IU/mL Normal ANTI-TG < 1.0 AB Result Comment: Thyroglobulin Antibody measured by Leobardo [facility] Method[facility] LAB L3400.1030 1.5-38.5 ng/mL Low THYROGLOB [...] is 0.1 ng/mL Thyroglobulin measured by Leobardo [employer] Direct Immunometric Assay Performed at: [facility] [address] [id number] Filteration Operator: Sudhir Trinidad PhD, Phone: [phone] Performed By: #### L3300.6820 #### [email or web address] (refer to report for specific site) refer to report for address and phone number CORTISOL SERUM Collected: 09/11/2017 Status: F Source: [place] 8:57 AM [facility] REPOSITORY Order Comment: Comments: MEDICATION GIVEN AT 0000 TYPE CODE TESTS RESULT OUT OF REFERENCE UNITS RANGE LAB L509.6000 3.09-22.40 ug/dL Low CORTISOL 0.80 Result Comment: Adult (AM) 4.30 - 22.40 ug/dL Adult (PM) 3.09 - 16.66 ug/dL Performed By: #### L509.6000 #### [facility] [address] [place], [address] CBC W/DIFF, AUTOMATED Collected: 08/03/2017 Status: F Source: [place] 4:17 PM [facility] REPOSITORY TYPE CODE TESTS RESULT OUT OF [...] Lymph 3.74 Performed By: #### L100.0100 #### [facility] [address] [place], [address] BASIC METABOLIC Collected: 08/03/2017 Status: F Source: [place] PROFILE ([facility]) 4:17 PM [facility] REPOSITORY TYPE CODE TESTS RESULT OUT OF [...] By: #### L500.2500, L501.5200, L501.9520, L506.0400 #### [facility] [address] [place], [address] MAGNESIUM Collected: 08/03/2017 Status: F Source: [place] 4:17 PM [facility] REPOSITORY TYPE CODE TESTS RESULT OUT OF RANGE REFERENCE UNITS LAB L501.5200 1.6-2.6 mg/dL Normal MG 2.0 Result Comment: Please note revised Magnesium reference range effective 2017. Slight Hemolysis, Result may be falsely increased. Performed By: #### L500.2500, L501.5200, L501.9520, L506.0400 #### [facility] [address] [place], [address] THYROID STIM HORMONE Collected: 08/03/2017 Status: F Source: [place] (TSH) 4:17 PM [facility] REPOSITORY TYPE CODE TESTS RESULT OUT OF RANGE REFERENCE UNITS LAB L501.9520 0.358-3.74 uIU/mL Low TSH 0.21 Performed By: #### L500.2500, L501.5200, L501.9520, L506.0400 #### [facility] [address] [place], [address] T4 FREE DIRECT Collected: 08/03/2017 Status: F Source: [place] 4:17 PM [facility] REPOSITORY TYPE CODE TESTS RESULT OUT OF RANGE REFERENCE UNITS LAB L506.0400 0.76-1.46 ng/dL Normal T4 FREE 1.31 DIRECT Performed By: #### L500.2500, L501.5200, L501.9520, L506.0400 #### [facility] [address] [place], [address] T3 TOTAL - TRIIODOTHYRONINE Collected: 08/03/2017 Status: F Source: [place] 4:17 PM [facility] REPOSITORY TYPE CODE TESTS RESULT OUT OF RANGE REFERENCE UNITS LAB L501.9186 0.6-1.81 ng/mL Normal T3 Total 0.98 Performed By: #### L501.9186, L506.1000 #### [facility] [address] [place], [address] VITAMIN D,25 HYDROXY Collected: 08/03/2017 Status: F Source: [place] 4:17 PM [facility] REPOSITORY TYPE CODE TESTS RESULT OUT OF RANGE REFERENCE UNITS LAB L506.1000 ng/mL Normal Vitamin D 35.7 25-OH Result Comment: Vitamin D 25(OH) Status Range Deficiency <20 ng/mL (50nmol/L) Insuffciency 20 - 30 ng/mL (50 - 75 nmol/L) Sufficiency 30 - 100 ng/mL (75 - 250 nmol/L) Toxicity >100 ng/mL (>250 nmol/L) Performed By: #### L501.9186, L506.1000 #### [facility] [address] [place], [place], [address] PTHIN Collected: 08/03/2017 Status: F Source: [place] 4:17 PM [facility] REPOSITORY TYPE CODE TESTS RESULT OUT OF RANGE REFERENCE UNITS LAB L509.1000 18.4-80.1 pg/mL Normal PTHIN 53.2 Result Comment: Please Note: PTH INTACT METHOD AND REFERENCE RANGE CHANGE Effective 06/28/2017. Performed By: #### L509.1000 #### [facility] [address] [place], [address] T3 REVERSE Collected: 08/03/2017 Status: F Source: [place] 4:17 PM [facility] REPOSITORY Order Comment: Has Patient had Radioactive Injection for X-ray?: N TYPE CODE TESTS RESULT OUT OF REFERENCE UNITS RANGE LAB L3300.7100 9.2-24.1 ng/dL T3 High REVERSE 25.8 Result Comment: Performed at: [address] [id number] Filteration Operator: Patrick An MD, Phone: [phone] Performed By: #### L3300.7100 #### [facility] (refer to report for specific site) refer to report for address and phone number ALLERGIES ALLERGIES DATE TYPE / NAME / CODE REACTION SEVERITY SOURCE CODE 04/21/2014 Drug hydroxyzine Other Unknown [place] Allergy/41 HCl/[id number](RXN Community 4843092([facility]) Repository 04/21/2014 Drug hydroxyzine Other Unknown [place] Allergy/41 pamoate/[id number] Community 3869862( (RXNO) [facility]) Repository 04/21/2014 Drug venlafaxine Other Unknown [place] Allergy/41 HCl/I200261389(RXN Community [id number] [place] [address]) Repository 04/21/2014 Drug escitalopram Other Unknown [place] Allergy/41 oxalate/[id number] [facility]1752[facility] 04/21/2014 Drug Penicillins/D82664 Anaphylaxis Unknown [place] Allergy/41 0476(RXNORM) Community 5118372([facility]) Repository 04/21/2014 Drug codeine/[id number] Anaphylaxis Unknown [place] Allergy/41 (RXNORM) Community 3061474([facility]) Repository 04/21/2014 Drug Rho(D) immune Hives Unknown [place] Allergy/41 globulin/W76053659 [facility] 8759437([facility](RXNORM) [facility]) Repository Drug/20700 codeine . [facility] 1003([facility]) System Repository Drug/44336 penicillin . [facility] 1003([facility]) System Repository ENCOUNTERS ENCOUNTERS ADMIT/DISCHARGE ACCOUNT NUMBER ADMITTING ENCOUNTER LOCATION SOURCE CLASS 07/27/2018 [id number] [facility] ding:LABSPEC Repository 07/18/2018 [id number] [facility] ding:LABSPEC Repository 06/26/2018 [id number] [facility] ding:LABSPEC Repository 06/21/2018 [id number] [facility] ding:LAB.FUT Repository URE 06/18/2018 [id number] [facility] ding:US Repository 06/05/2018 [id number] [facility] ding:LAB.FUT Repository URE 05/28/2018 [id number] GOODMAN CHERRY, [facility] [place] :OUTPATIENT 12/26/2017 [id number] [facility] ding:LAB Repository 12/13/[id number] Girish [facility] Repository 10/14/2017/10/15/19 [id number] Jc Walsh [address] ding:[facility] EDRoom: WR Repository 09/25/2017 [id number] [facility] ding:LAB.FUT Repository URE 09/11/2017 [id number] [facility] ding:LAB Repository 08/03/2017 [id number] [facility] ding:MFPLAB Repository PAYERS PAYERS ENCOUNTER GUARANTOR PAYER SUBSCRIBER SOURCE 07/27/2018 [place] Primary Insurance:WPS [place] [id number] N FOR [facility]: [facility] Number: [id number] [id number] Repository [place] [address]Bvl: Date:1977-70-92[address] [place] [address] () [phone]: 07/27/2018 Secondary NOT GIVENUNK [place] Insurance:SELF PAY [facility] Number: Effective Repository Date:2018-07-27 07/18/2018 M[place] Primary EVANGELISTA G [place] [id number] [address] Insurance: [facility]: [facility] Number: [id number] Health North [id number] [place]ository [place] [address]Cyl: Date:4110-18-56XKHLQX [facility] () SERVICESPO [address] [place] [phone]: 07/18/2018 Secondary NOT GIVENUNK [place] Insurance:SELF PAY [facility] Number: Effective Repository Date:2018-07-18 06/26/2018 M[place] Primary EVANGELISTA Trejo [place] [id number] [facility]: [facility] Number: [id number] Health North [id number] Repository [place] [address]Aae: Date:0994-82-60JBKSSL NET FEDERAL (HP) SERVICESPO [address] [place] [phone]: 06/26/2018 Secondary NOT GIVENUNK [place] Insurance:SELF PAY [facility] Number: Effective Repository Date:2018-06-26 06/21/2018 M[place] Primary EVANGELISTA Trejo [place] [id number] N Insurance:[facility]: [facility] Number: [id number] [facility], [id number] Repository [place] [address]Dgw: Date:3987-24-39HCAMKE NET FEDERAL (HP) SERVICESPO [address] [place] [phone]: 06/21/2018 Secondary NOT GIVENUNK [place] Insurance:SELF PAY [facility] Number: Effective Repository Date:2018-06-18 06/18/2018 M[place] Primary EVANGELISTA G [place] [id number] Insurance: [facility]: [facility] Number: [id number] Health North [id number] Repository [place] [address]Paq: Date:2714-02-94XKWZZP NET FEDERAL (HP) SERVICESPO [address] [place] [phone]: 06/18/2018 Secondary NOT GIVENUNK [place] Insurance:SELF PAY [facility] Number: Effective Repository Date:2018-06-05 06/05/2018 Mery L Primary EVANGELISTA Neil [place] [id number] Insurance: [facility]: Community [facility] Number: [id number] [facility], [id number] Repository [place] [address]Lmj: Date:3001-60-56OFYXAD [facility] (HP) [facility] [address] [place] [address]MI: 06/05/2018 Secondary NOT GIVENUNK [place] Insurance:SELF PAY [facility] Number: Effective Repository Date:2018-06-05 12/26/2017 Mery L Primary EVANGELISTA G [place] [id number] Insurance: [place]OB: [facility] Number: [id number] [facility], [id number] Repository [place] [address]Cau: Date:2017-12-26 (HP) 12/26/2017 Secondary NOT GIVENUNK [place] Insurance:SELF PAY [facility] Number: Effective Repository Date:2017-12-26 12/13/2017 Primary MERY [facility] Insurance:TricarePoli [facility]: [place] and Number: [id number] [facility] [id number] [address] [place] [address] Repository Date:[place], [place] Name:[facility] [address]Iqu: ([phone] [place], [phone] (HP) [place] [address]YT: 10/14/2017 MERY L Primary MERY L [facility]: Insurance:TRICAREPoli [facility]: [facility] [id number] cy Number: Effective [id number] System [place] Date:2017-10-14 - [place] Repository [facility] [id number] City, [place] [address]Uhe: Name:[place], [place] [address]Jsb: [id number] [place], (HP) [place] [phone]: [phone] ([place]) [phone] (WP) 09/25/2017 Mery [place] Primary EVANGELISTA Quezada [id number] Insurance: [place]DOB: [address] PGBAPolicy Number: [id number] [facility], [id number] [place]ository [place] [address]Uoz: Date:7971-47-37CEOSGX NET FEDERAL (HP) SERVICESPO [id number] [place] [phone]: 09/25/2017 Secondary NOT GIVENUNK [place] Insurance:SELF PAY [facility] Number: Effective Repository Date:2017-08-16 09/11/2017 Mery [place] Primary EVANGELISTA Trejo [place] [id number] N Insurance: [place] MID[place]DOB: Community Water [facility] CenterBAPolicy Number: [id number] [facility], [id number] Repository [place] [address]Zro: Date:1280-33-00NKQPTJ NET FEDERAL () SERVICESPO [address] [place] [phone]: 09/11/2017 Secondary NOT GIVENUNK [place] Insurance:SELF PAY [facility] Number: Effective Repository Date:2017-09-11 08/03/2017 Mery [place] Primary EVANGELISTA Barretooster [id number] Insurance: [place] MID[place]DOB: Community Water [facility] CenterBAPolicy Number: [id number] [facility], [id number] Repository [place] [address]Mwk: Date:7447-47-81UBKTHJ NET FEDERAL (HP) SERVICESPO [address]AMGNUK[address] [place] [phone]: 08/03/2017 Secondary NOT GIVENUNK [place] Insurance:SELF PAY [facility] Number: Effective Repository Date:2017-08-03
== END ==
PROVIDERS: Family Provider Family Medicine; PCP Family Medicine
DX: E27.9 Disorder of adrenal gland, unspecified (principal)

== ENCOUNTER → 2018-07-18 09:05 | Outpatient (CLI) | payer OTHER, SELFPAY | PROVIDERS: Family Provider Family Medicine; PCP Family Medicine | DX: E27.9 Disorder of adrenal gland, unspecified (principal) ==

== ENCOUNTER → 2018-07-27 12:19 | Outpatient (CLI) | payer OTHER, SELFPAY ==
[2018-07-27 14:27] LABS: Amphetamine Urine VISTA NEGATIVE (<1000 ng/mL); Barbiturate Urine VISTA NEGATIVE (< 200 ng/mL); Benzodiazepine Urine VISTA NEGATIVE (< 200 ng/mL); Cocaine Urine VISTA NEGATIVE (< 300 ng/mL); Ecstacy Urine VISTA NEGATIVE (< 500 ng/mL); Methadone Urine VISTA NEGATIVE (< 300 ng/mL); PCP Urine VISTA NEGATIVE (< 25 ng/mL); THC Urine VISTA NEGATIVE (< 50 ng/mL); Vista UDS pH Range 6
--- OUTSIDE RECORDS SUMMARY | 2018-10-01 01:59 | XMS RPT_ITS ---
:1960 Author Organization OHIP Support Name Relationship Address Phone EAGLES Unavailable [address] + [place] [address] STEFANIE IPERRE Unavailable [address] + [place] [address] BREANNA DE PAZ Unavailable Unavailable + [place] [address] EAGLES Unavailable [address] + [place] [address] STEFANIE PIERRE Unavailable [address] + [place] [address] BREANNA DE PAZ Unavailable Unavailable + [place] [address] EAGLES Unavailable [address] + [place] [address] STEFANIE PIERRE Unavailable [address] + [place] [address] BREANNA DE PAZ Unavailable Unavailable + [place] [address] EAGLES Unavailable [address] + [place] [address] STEFANIE PIERRE Unavailable [address] + [place] [address] BREANNA DE PAZ Unavailable Unavailable + [place] [address] STEFANIE PIERRE Unavailable [address] + [place] [address] BREANNA DE PAZ Unavailable Unavailable + [place] [address] UE Unavailable Unavailable Unavailable STEFANIE PIERRE Unavailable [address] + [place] [address] UE Unavailable Unavailable Unavailable KAVYA HOLDEN Unavailable Unavailable + STEFANIE PIERRE Unavailable [address] + [place] [address] UE Unavailable Unavailable Unavailable STEFANIE PIERRE Unavailable [address] + [place] [address] UE Unavailable Unavailable Unavailable STEFANIE PIERRE Unavailable [address] + [place] [address] UE Unavailable Unavailable Unavailable Care Team Providers Name Role Phone GURINDER BROOKE Attending Unavailable GURINDER BROOKE Referring Unavailable Sky, Roberto Primary Care Unavailable GURINDER BROOKE Attending Unavailable GURINDER BROOKE Referring Unavailable Sky, Roberto Primary Care Unavailable Sky, Roberto Attending Unavailable Sky, Roberto Referring Unavailable Sky, Roberto Primary Care Unavailable Sky, Roberto Primary Care Unavailable GURINDER [...] Attending Unavailable AMBER MENSAH MD Consulting Unavailable Jc Walsh Admitting Unavailable Jc Walsh Attending Unavailable Sky, Roberto A Primary Care Unavailable PROBLEMS PROBLEMS DATE TYPE CONDITION / CODE ATTENDING STATUS SOURCE 07/31/2018 Unknown G89.4 - Chronic Sky, Roberto Active [place] pain syndrome / Community G89.4(ICD-10) Hospital Repository 07/26/2018 Unknown 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, Community unspecified / Hospital E27.9(ICD-10) Repository 07/13/2018 Unknown 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 / Hospital C73(ICD-10) Repository 05/28/2018 Admitting THYROID CA / GOODMAN CHERRY, Active [facility] diagnosis 193(ICD-9) [facility] Repository 05/28/2018 Unknown THYROID CA / [place] CHERRY, Active [facility] 193(ICD-9) [facility] Repository 05/28/2018 Admitting MALIGNANT [facility] CHERRY, [facility] diagnosis NEOPLASM OF [facility] THYROID GLAND / Repository C73(ICD-10) 05/28/2018 Unknown MALIGNANT GOODMAN CHERRY, Active [facility] NEOPLASM OF [facility] THYROID GLAND / Repository C73(ICD-10) 09/25/2017 Unknown E03.9 - GURINDER BROOKE Active [place] Hypothyroidism, Community unspecified / Hospital E03.9(ICD-10) Repository 09/11/2017 Unknown 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 Active [place] syndrome, Community unspecified / Hospital E24.9(ICD-10) Repository PROCEDURES PROCEDURES No Procedure Records FoundRESULTS RESULTS URINE DRUG SCREEN Collected: 07/27/2018 Status: F Source: [place] 11:00 AM [facility] Order Comment: Comments: [id number] OXYCODONE RTEMP List of Drugs Taken or [...] Normal NEGATIVE Performed By: #### L505.5000 #### [facility] [address] [place], [address] MISCELLANEOUS LAB Collected: 07/27/2018 Status: F Source: [place] PROCEDURE 11:00 AM [facility] Order Comment: Comments: [id number] OXYCODONE RTEMP Test(s) Ordered: [id number] OXYCODONE RTEMP TYPE CODE TESTS RESULT OUT OF RANGE REFERENCE UNITS LAB L801.1541 Normal [facility] Result Comment: TEST RESULT UNITS REF INTERVAL Oxycodone/Oxymorphone, Urine Oxycodone/Oxymorph Positive Hnjnqs=208 Test includes Oxycodone and Oxymorphone Oxycodone Positive Oxycodone Confirm 308 ng/mL Blyhlr=337 Oxycodone detected; this finding is consistent with use of medications that include Oxycontin, Percodan, Percocet, Tylox, or generic formulations. Drugs listed are vendor representatives of common sources of the compound detected and are not intended to include all possible sources. Oxymorphone Positive Oxymorphone Confirm 201 ng/mL Oudpqj=011 Oxymorphone detected; this finding is consistent with use of medications that include Numorphan, Opana, or drugs containing Oxycodone, or generic formulations. Drugs listed are vendor representatives of common sources of the compound detected and are not intended to include all possible sources. Please Note: Drug-test results should be interpreted in the context of clinical information. Patient metabolic variables, specific drug chemistry, and specimen characteristics can affect test outcome. Technical consultation is available if a test result is inconsistent with an expected outcome. (email-[email or web address] or call toll-free [phone]) TESTING PERFORMED AT [facility]. ORIGINAL REPORT ON FILE IN LAB CONTAINS ADDITIONAL TEST SITE INFORMATION. Performed By: #### L801.1541 #### [place] [facility] [address] [place], [address] MISCELLANEOUS LAB Collected: 07/18/2018 Status: F Source: [place] PROCEDURE 12:00 AM [facility] Order Comment: Comments: [id number] cortisol salivary refridgerated Test(s) Ordered: [id number] cortisol salivary refridgerated TYPE CODE TESTS RESULT OUT OF RANGE REFERENCE UNITS LAB L801.1541 Normal [facility] TEST Result Comment: TEST RESULT UNITS REF INTERVAL Salivary Cortisol,MS Salivary Cortisol, MS 0.054 ug/dL Reference Range: Children and Adults: 8:00a.m.: 0.025 - 0.600 Noon: <0.010 - 0.330 4:00p.m.: 0.010 - 0.200 Midnight: <0.010 - 0.090 TESTING PERFORMED AT [facility]. ORIGINAL REPORT ON FILE IN LAB CONTAINS ADDITIONAL TEST SITE INFORMATION. Performed By: #### L801.1541 #### [place] [facility] [address] [place], [address] CBC-COMPLETE BLOOD CNT Collected: 06/21/2018 Status: F Source: [place] NO DIFF 8:36 AM [facility] TYPE CODE TESTS RESULT OUT OF [...] MPV 10.3 Performed By: #### L100.0500 #### [facility] [address] [place], [address] OSMOLALITY, URINE Collected: 06/21/2018 Status: F Source: [place] 8:36 AM [facility] TYPE CODE TESTS RESULT OUT OF RANGE REFERENCE UNITS LAB L501.7400 mOsm/KG Normal 671 OSMOLALITY,U R Result Comment: OSMOLALITY URINE REFERENCE INTERVALS 24-hour Urine 300 - 900 mOsm/kg Random Urine 50 - 1400 mOsm/kg After 12 Hr fluid restriction >850 mOsm/kg Performed By: #### L501.7400, L501.5500 #### [facility] [address] [place], [address] URINE SODIUM Collected: 06/21/2018 Status: F Source: [place] 8:36 AM [facility] TYPE CODE TESTS RESULT OUT OF RANGE REFERENCE UNITS LAB L501.5500 Not Establ. mmol/L Normal UR NA 142 Performed By: #### L501.7400, L501.5500 #### [facility] [address] [place], [address] OSMOLALITY, SERUM Collected: 06/21/2018 Status: F Source: [place] 8:36 AM [facility] TYPE CODE TESTS RESULT OUT OF RANGE REFERENCE UNITS LAB L501.7300 275-295 mOsm/KG High 297 OSMOLALITY,S ER Performed By: #### L501.7300 #### [facility] [address] [place] [place], [address] VITAMIN D,25 HYDROXY Collected: 06/21/2018 Status: F Source: [place] 8:36 AM [facility] Order Comment: Comments: [id number] METANEPHRINES TYPE CODE TESTS RESULT OUT OF REFERENCE UNITS RANGE LAB L506.1000 29.95-100.01 ng/mL Low Vitamin D 26.2 25-OH Result Comment: Vitamin D 25(OH) Status Range Deficiency <20 ng/mL (50nmol/L) Insuffciency 20 - 30 ng/mL (50 - 75 nmol/L) Sufficiency 30 - 100 ng/mL (75 - 250 nmol/L) Toxicity >100 ng/mL (>250 nmol/L) Performed By: #### L506.1000, L509.6000 #### [facility] [address] [place], [address] CORTISOL SERUM Collected: 06/21/2018 Status: F Source: [place] 8:36 AM [facility] Order Comment: Comments: [id number] METANEPHRINES TYPE CODE TESTS RESULT OUT OF RANGE REFERENCE UNITS LAB L509.6000 3.09-22.40 ug/dL Normal CORTISOL 13.90 Result Comment: Adult (AM) 4.30 - 22.40 ug/dL Adult (PM) 3.09 - 16.66 ug/dL Performed By: #### L506.1000, L509.6000 #### [facility] [address] [place], [address] BASIC METABOLIC Collected: 06/21/2018 Status: F Source: [place] PROFILE (BMP) 8:36 AM [facility] Order Comment: Has Patient had X-rays with Contrast this admission? N Comments: [id number] METANEPHRINES TYPE CODE TESTS RESULT OUT OF [...] Performed By: #### L500.2500, L500.3400, L501.2300, L501.5200, L501.44608, L501.9520, L506.0400, L3100.5125, L3100.5170, L3100.5420, L3300.1750 #### [facility] [address] [place], [place], [address] LIVER PROFILE Collected: 06/21/2018 Status: F Source: [place] 8:36 AM [facility] Order Comment: Has Patient had X-rays with Contrast this admission? N Comments: [id number] METANEPHRINES TYPE CODE TESTS RESULT OUT OF [...] Performed By: #### L500.2500, L500.3400, L501.2300, L501.5200, L501.93344, L501.9520, L506.0400, L3100.5125, L3100.5170, L3100.5420, L3300.1750 #### [facility] [address] [place], [place], [id number] (086) PHOSPHORUS Collected: 06/21/2018 Status: F Source: [place] 8:36 AM [facility] Order Comment: Has Patient had X-rays with Contrast this admission? N Comments: [id number] METANEPHRINES TYPE CODE TESTS RESULT OUT OF RANGE REFERENCE UNITS LAB L501.2300 2.5-4.9 mg/dL Normal PHOS 3.8 Performed By: #### L500.2500, L500.3400, L501.2300, L501.5200, L501.44071, L501.9520, L506.0400, L3100.5125, L3100.5170, L3100.5420, L3300.1750 #### [facility] [address] [place], [place], [address] MAGNESIUM Collected: 06/21/2018 Status: F Source: [place] 8:36 AM [facility] Order Comment: Has Patient had X-rays with Contrast this admission? N Comments: [id number] METANEPHRINES TYPE CODE TESTS RESULT OUT OF RANGE REFERENCE UNITS LAB L501.5200 1.6-2.6 mg/dL Normal MG 2.1 Performed By: #### L500.2500, L500.3400, L501.2300, L501.5200, L501.83242, L501.9520, L506.0400, L3100.5125, L3100.5170, L3100.5420, L3300.1750 #### [facility] [address] [place], [place], [address] FREE T3 Collected: 06/21/2018 Status: F Source: [place] 8:36 AM [facility] Order Comment: Has Patient had X-rays with Contrast this admission? N Comments: [id number] METANEPHRINES TYPE CODE TESTS RESULT OUT OF RANGE REFERENCE UNITS LAB L501.54160 2.18-3.98 pg/mL Normal FREE T3 3.5 Performed By: #### L500.2500, L500.3400, L501.2300, L501.5200, L501.51897, L501.9520, L506.0400, L3100.5125, L3100.5170, L3100.5420, L3300.1750 #### [facility] [address] [place], [place], [id number] THYROID STIM HORMONE Collected: 06/21/2018 Status: F Source: [place] (TSH) 8:36 AM [facility] Order Comment: Has Patient had X-rays with Contrast this admission? N Comments: [id number] METANEPHRINES TYPE CODE TESTS RESULT OUT OF RANGE REFERENCE UNITS LAB L501.9520 0.358-3.74 uIU/mL Low TSH 0.02 Performed By: #### L500.2500, L500.3400, L501.2300, L501.5200, L501.34298, L501.9520, L506.0400, L3100.5125, L3100.5170, L3100.5420, L3300.1750 #### [facility] [address] [facility] [place], [place], [address] T4 FREE DIRECT Collected: 06/21/2018 Status: F Source: [place] 8:36 AM [facility] Order Comment: Has Patient had X-rays with Contrast this admission? N Comments: [id number] METANEPHRINES TYPE CODE TESTS RESULT OUT OF RANGE REFERENCE UNITS LAB L506.0400 0.76-1.46 ng/dL Normal T4 FREE 1.18 DIRECT Performed By: #### L500.2500, L500.3400, L501.2300, L501.5200, L501.37690, L501.9520, L506.0400, L3100.5125, L3100.5170, L3100.5420, L3300.1750 #### [facility] [address] [facility] [place], [address] FOLLICLE STIMULATING Collected: 06/21/2018 Status: F Source: [place] HORMONE 8:36 AM [facility] Order Comment: Has Patient had X-rays with Contrast this admission? N Comments: [id number] METANEPHRINES TYPE CODE TESTS RESULT OUT OF [...] Performed By: #### L500.2500, L500.3400, L501.2300, L501.5200, L501.83023, L501.9520, L506.0400, L3100.5125, L3100.5170, L3100.5420, L3300.1750 #### [facility] [address] [place], [place], [address] LUTEINIZING HORMONE Collected: 06/21/2018 Status: F Source: [place] 8:36 AM [facility] Order Comment: Has Patient had X-rays with Contrast this admission? N Comments: [id number] METANEPHRINES TYPE CODE TESTS RESULT OUT OF [...] Performed By: #### L500.2500, L500.3400, L501.2300, L501.5200, L501.14419, L501.9520, L506.0400, L3100.5125, L3100.5170, L3100.5420, L3300.1750 #### [facility] [address] [place], [place], [address] PROLACTIN Collected: 06/21/2018 Status: F Source: [place] 8:36 AM [facility] Order Comment: Has Patient had X-rays with Contrast this admission? N Comments: [id number] METANEPHRINES TYPE CODE TESTS RESULT OUT OF RANGE REFERENCE UNITS LAB L3100.5420 ng/mL Normal PROLACTIN 5.6 Result Comment: NORMAL REFERENCE RANGES FEMALE NON- 2.2 - 30.3 ng/mL 8.1 - 347.6 ng/mL POST-MENOPAUSAL 0.7 - 31.5 ng/mL MALE 2.5 - 17.4 ng/mL NEW TEST METHOD AND REFERENCE RANGES NOVEMBER 28, 2011 Performed By: #### L500.2500, L500.3400, L501.2300, L501.5200, L501.86634, L501.9520, L506.0400, L3100.5125, L3100.5170, L3100.5420, L3300.1750 #### [facility] [address] [place], [place], [address] ESTRADIOL Collected: 06/21/2018 Status: F Source: [place] 8:36 AM [facility] Order Comment: Has Patient had X-rays with Contrast this admission? N Comments: [id number] METANEPHRINES TYPE CODE TESTS RESULT OUT OF [...] Performed By: #### L500.2500, L500.3400, L501.2300, L501.5200, L501.41073, L501.9520, L506.0400, L3100.5125, L3100.5170, L3100.5420, L3300.1750 #### [facility] [address] [place], [address] PTHIN Collected: 06/21/2018 Status: F Source: [place] 8:36 AM [facility] TYPE CODE TESTS RESULT OUT OF RANGE REFERENCE UNITS LAB L509.1000 18.4-80.1 pg/mL Normal PTHIN 62.9 Performed By: #### L509.1000 #### [facility] [address] [place], [address] VITAMIN D 1,25-DIHYDROXY Collected: 06/21/2018 Status: F Source: [place] 8:36 AM [facility] TYPE CODE TESTS RESULT OUT OF RANGE REFERENCE UNITS LAB L3300.0960 19.9-79.3 pg/mL Normal VITD 1,25 38.1 70130 Result Comment: Performed at: [address] [id number] Appraiser Personal Property: Gallo Elaine MD, Phone: [phone] Performed By: #### L3300.0960 #### [facility] (refer to report for specific site) refer to report for address and phone number CALCIUM IONIZED Collected: 06/21/2018 Status: F Source: [place] 8:36 AM [facility] Order Comment: Has Patient had X-rays with Contrast this admission? N Comments: [id number] METANEPHRINES Has Patient had Radioactive Injection for X-ray?: N TYPE CODE TESTS RESULT OUT OF RANGE REFERENCE UNITS LAB L3100.9600 4.5-5.6 mg/dL Normal IONIZED CA 5.4 Performed By: #### L3100.9600, L3300.1000, L3300.1100, L3300.1500, L3300.6820, L3400.1300, L3400.1375, L3400.4000 #### [facility] (refer to report for specific site) refer to report for address and phone number ADRENOCORTICOTROPIC HORMONE Collected: Status: F Source: [place] 06/21/2018 8:36 AM [facility] Order Comment: Has Patient had X-rays with Contrast this admission? N Comments: [id number] METANEPHRINES Has Patient had Radioactive Injection for [...] ALDOSTERONE, SERUM Collected: 06/21/2018 Status: F Source: [place] 8:36 AM [facility] Order Comment: Has Patient had X-rays with Contrast this admission? N Comments: [id number] METANEPHRINES Has Patient had Radioactive Injection for [...] DHEA SULFATE Collected: 06/21/2018 Status: F Source: [place] 8:36 AM [facility] Order Comment: Has Patient had X-rays with Contrast this admission? N Comments: [id number] METANEPHRINES Has Patient had Radioactive Injection for [...] Status: F Source: [place] AB 8:36 AM [facility] Order Comment: Has Patient had X-rays with Contrast this admission? N Comments: [id number] METANEPHRINES Has Patient had Radioactive Injection for X-ray?: N TYPE CODE TESTS RESULT OUT OF RANGE REFERENCE UNITS LAB L3300.7025 0.0-0.9 IU/mL Normal ANTI-TG < 1.0 AB Result Comment: Thyroglobulin Antibody measured by [facility] [place] [facility] LAB L3400.1030 1.5-38.5 ng/mL Low THYROGLOB [...] measured by [facility] Immunometric Assay Performed By: #### L3100.9600, L3300.1000, L3300.1100, L3300.1500, L3300.6820, L3400.1300, L3400.1375, L3400.4000 #### [facility] (refer to report for specific site) refer to report for address and phone number SOMATOMEDIN C Collected: 06/21/2018 Status: F Source: [place] 8:36 AM [facility] Order Comment: Has Patient had X-rays with Contrast this admission? N Comments: [id number] METANEPHRINES Has Patient had Radioactive Injection for X-ray?: N TYPE CODE TESTS RESULT OUT OF RANGE REFERENCE UNITS LAB L3400.1300 53-190 ng/mL Normal SOMATOM 130 [id number] Performed By: #### L3100.9600, L3300.1000, L3300.1100, L3300.1500, L3300.6820, L3400.1300, L3400.1375, L3400.4000 #### [facility] (refer to report for specific site) refer to report for address and phone number GROWTH HORMONE Collected: 06/21/2018 Status: F Source: [place] 8:36 AM [facility] Order Comment: Has Patient had X-rays with Contrast this admission? N Comments: [id number] METANEPHRINES Has Patient had Radioactive Injection for [...] 06/21/2018 Status: F Source: [place] 8:36 AM [facility] Order Comment: Has Patient had X-rays with Contrast this admission? N Comments: [id number] METANEPHRINES Has Patient had Radioactive Injection for X-ray?: N TYPE CODE TESTS RESULT OUT OF RANGE REFERENCE UNITS LAB L3400.4000 . ng/mL/hr Test Normal not performed RENIN,PL 2006 Result Comment: No frozen plasma received. This [...] Status: F Source: [place] PROCEDURE 8:36 AM [facility] Order Comment: Comments: [id number] METANEPHRINES Test(s) Ordered: [id number] METANEPHRINES TYPE CODE TESTS RESULT OUT OF RANGE REFERENCE UNITS LAB L801.1541 Normal MISC LAB TEST Result Comment: TEST RESULT UNITS [...] metanephrines and plasma catecholamines. TESTING PERFORMED AT [facility]. ORIGINAL REPORT ON FILE IN LAB CONTAINS ADDITIONAL TEST SITE INFORMATION. Performed By: #### L801.1541 #### [facility] [address] 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 Pleitez, It was noted that [...] STIM HORMONE Collected: 12/26/2017 Status: F Source: [place] ([place]) 3:06 PM [facility] TYPE CODE TESTS RESULT OUT OF RANGE REFERENCE UNITS LAB L501.9520 0.358-3.74 uIU/mL Low TSH 0.08 Performed By: #### L501.9520 #### [facility] [address] [place], [address] THYROGLOBULIN ANTIBODY Collected: 12/26/2017 Status: F Source: [place] 3:06 PM [facility] TYPE CODE TESTS RESULT OUT OF RANGE REFERENCE UNITS LAB L3300.7027 0.0-0.9 IU/mL Normal TG AB < 1.0 Result Comment: Thyroglobulin Antibody measured by [employer] [facility] Performed at: [facility] [address] [id number] Appraiser Personal Property: Sudhir Trinidad PhD, Phone: [phone] Performed By: #### L3300.7027 #### [facility] (refer to report for specific site) refer to report for address and phone number [phone] WHOLE BODY Observed: 12/14/2017 Status: F Source: [facility] SCAN 10:15 AM [facility] REPOSITORY Final Report Accession No: [id number] Performed: Dec 14 2017 10:15AM Examination: [...] BRAIN W/O Observed: 10/14/2017 Status: F Source: [place] CONTR[place] 1:37 AM [facility] REPOSITORY Exam Date/Time: 10/14/2017 01:54 EDT [...] CERVICAL W/O Observed: 10/14/2017 Status: F Source: [place]ISCOPAL[place] CONTRAST 1:37 AM [facility] REPOSITORY Exam Date/Time: 10/14/2017 01:54 EDT [...] GABRIELLA ETHANOL Collected: 10/14/2017 Status: F Source: EPISCOPALIAN 1:36 AM [facility] REPOSITORY TYPE CODE TESTS RESULT OUT OF RANGE REFERENCE UNITS LAB [id number](L 0-15 mg/dL OINC) Abnormal Alert Ethanol Lvl 358 Result Comment: Critical Result ETOH: Called to: JAY STEVICK at: 01:52:41 by:NICOLAS Read back by:JAY ESQUIVEL SAMPLES WITH CONCENTRATIONS <15 MG/DL SHOULD BE INTERPRETED NEGATIVE. FOR MEDICAL USE ONLY Performed By: #### [id number] #### [facility] [address] [place] [address] INSULIN Collected: 09/25/2017 Status: F Source: [place] 10:41 AM [facility] TYPE CODE TESTS RESULT OUT OF RANGE REFERENCE UNITS LAB [id number] 2.6-37.6 mU/L Normal Insulin 9.8 Result Comment: Please Note: INSULIN METHOD AND REFERENCE RANGE CHANGE Effective 07/20/2017. Performed By: #### [id number] #### [facility] [address] [place], [place], [address] BASIC METABOLIC Collected: 09/25/2017 Status: F Source: [place] PROFILE (BMP) 10:41 AM [facility] TYPE CODE TESTS RESULT OUT OF [...] GAP 7 Performed By: #### L500.2500, L500.4100, L501.84586, L501.9310, L501.9520 #### [facility] [address] [place], [address] LIPID PROFILE Collected: 09/25/2017 Status: F Source: [place] 10:41 AM [facility] TYPE CODE TESTS RESULT OUT OF [...] VLDL 18 Performed By: #### L500.2500, L500.4100, L501.07169, L501.9310, L501.9520 #### [facility] [address] [place], [address] FREE T3 Collected: 09/25/2017 Status: F Source: [place] 10:41 AM [facility] [place] CODE TESTS RESULT OUT OF RANGE REFERENCE UNITS LAB L501.54203 2.18-3.98 pg/mL Normal FREE T3 3.2 Performed By: #### L500.2500, L500.4100, L501.29035, L501.9310, L501.9520 #### [facility] [address] [place], [address] T4 TOTAL, THYROXIN Collected: 09/25/2017 Status: F Source: [place] 10:41 AM [facility] [place] TYPE CODE TESTS RESULT OUT OF RANGE REFERENCE UNITS LAB L501.9310 4.8-13.9 ug/dL T4 Normal THYROXIN 13.0 Performed By: #### L500.2500, L500.4100, L501.82396, L501.9310, L501.9520 #### [facility] [address] [facility] [place], [place], [id number] THYROID STIM HORMONE Collected: 09/25/2017 Status: F Source: [place] ([place]) 10:41 AM [facility] [place] TYPE CODE TESTS RESULT OUT OF RANGE REFERENCE UNITS LAB L501.9520 0.358-3.74 uIU/mL Low TSH 0.05 Performed By: #### L500.2500, L500.4100, L501.50918, L501.9310, L501.9520 #### [facility] [address] [facility] [place], [address] THYROGLOBULIN ANTIBODY Collected: 09/25/2017 Status: F Source: [place] 10:41 AM [facility] [place] TYPE CODE TESTS RESULT OUT OF RANGE REFERENCE UNITS LAB L3300.7027 0.0-0.9 IU/mL Normal TG AB < 1.0 Result Comment: Thyroglobulin Antibody measured by Leobardo Kinga Methodology Performed at: [facility] [id number] Appraiser Personal Property: Sudhir Trinidad PhD, Phone: [phone] Performed By: #### L3300.7027 #### [facility] (refer to report for specific site) refer to report for address and phone number THYROGLOBULIN W/ANTI-TG Collected: 09/25/2017 Status: F Source: [place] 10:41 AM [facility] [place] TYPE CODE TESTS RESULT OUT OF RANGE REFERENCE UNITS LAB L3300.7025 0.0-0.9 IU/mL Normal ANTI-TG < 1.0 AB Result Comment: Thyroglobulin Antibody measured by Leobardo [place] Methodology LAB L3400.1030 1.5-38.5 ng/mL Low THYROGLOB [...] by Leobardo Kinga Immunometric Assay Performed at: [facility] [id number] Appraiser Personal Property: Sudhir Trinidad PhD, Phone: [phone] Performed By: #### L3300.6820 #### [facility] (refer to report for specific site) refer to report for address and phone number CORTISOL SERUM Collected: 09/11/2017 Status: F Source: [place] 8:57 AM [facility] [place] Order Comment: Comments: MEDICATION GIVEN AT 0000 TYPE CODE TESTS RESULT OUT OF REFERENCE UNITS RANGE LAB L509.6000 3.09-22.40 ug/dL Low CORTISOL 0.80 Result Comment: Adult (AM) 4.30 - 22.40 ug/dL Adult (PM) 3.09 - 16.66 ug/dL Performed By: #### L509.6000 #### [facility] [address] [place], [address] ALLERGIES ALLERGIES DATE TYPE / NAME / CODE REACTION SEVERITY SOURCE CODE 04/21/2014 Drug hydroxyzine Other Unknown [place] Allergy/41 HCl/[id number](RXN [facility] [id number]) Repository 04/21/2014 Drug hydroxyzine Other Unknown [place] Allergy/41 pamoate/[id number] [facility] [id number][facility] 04/21/2014 Drug venlafaxine Other Unknown [place] Allergy/41 HCl/[id number](RXN [facility] 6351599[facility]) Repository 04/21/2014 Drug escitalopram Other Unknown [place] Allergy/41 oxalate/[id number] [facility] 6763895[facility] 04/21/2014 Drug Penicillins/E42558 Anaphylaxis Unknown [place] Allergy/41 0476(RXNORM) [facility] 0037044([facility]) Repository 04/21/2014 Drug codeine/[id number] Anaphylaxis Unknown [place] Allergy/41 (RXNORM) [facility] 6437955([facility]) Repository 04/21/2014 Drug Rho(D) immune Hives Unknown [place] Allergy/41 globulin/N81459178 [facility] 8232849([facility](RXNORM) [facility]) Repository Drug/25017 codeine . Denominational 1003([facility]) System Repository Drug/17688 penicillin . Denominational 1003([facility]) System Repository ENCOUNTERS ENCOUNTERS ADMIT/DISCHARGE ACCOUNT NUMBER ADMITTING ENCOUNTER LOCATION SOURCE CLASS 07/27/2018 [id number] [facility] ding:LABSPEC Repository 07/18/2018 [id number] [facility] ding:LABSPEC Repository 06/26/2018 [id number] [facility] ding:LABSPEC Repository 06/21/2018 [id number] [facility] ding:LAB.FUT Repository URE 06/18/2018 [id number] [facility] ding:US Repository 06/05/2018 [id number] [facility] ding:LAB.FUT Repository URE 05/28/2018 [id number] GOODMAN CHERRY, Ambulatory [facility] Live[facility] Repository :OUTPATIENT 12/26/2017 [id number] [facility] ding:LAB Repository 12/13/[id number] Girish Ambulatory [facility] Repository 10/14/2017/10/15/19 [id number] [facility] [address] ding:[facility] EDRoom: WR Repository 09/25/2017 [id number] [facility] ding:LAB.FUT Repository URE 09/11/2017 [id number] [facility] ding:LAB Repository PAYERS PAYERS ENCOUNTER GUARANTOR PAYER SUBSCRIBER SOURCE 07/27/2018 MERY [place] Primary Insurance:S [place] [address] [address] [facility]: [facility] Number: [id number] [facility], [id number] Repository [place] [address]Cgl: Date:4819-43-98[address], [place] ([place]) [phone]: 07/27/2018 Secondary NOT GIVENUNK [place] Insurance:SELF PAY [facility] Number: Effective Repository Date:2018-07-27 07/18/2018 MERY L Primary EVANGELISTA G [place] [id number] [facility] Number: [id number] [facility], [id number] Repository [place] [address]Ywm: Date:0869-92-35VWETQA NET FEDERAL ([place]) [address]PO [address] [place] [phone]: 07/18/2018 Secondary NOT GIVENUNK [place] Insurance:SELF PAY [facility] Number: Effective Repository Date:2018-07-18 06/26/2018 MERY L Primary EVANGELISTA Neil [place] [id number] Insurance: [facility]: [facility] Number: [id number] Breeze Hospital, [id number] Repository [place] [address]Nmr: Date:6287-26-46BZYXRJ NET FEDERAL () [address]PO [address] [place] [phone]: 06/26/2018 Secondary NOT GIVENUNK [place] Insurance:SELF PAY [facility] Number: Effective Repository Date:2018-06-26 06/21/2018 MERY L Primary EVANGELISTA Neil [place] [id number] Insurance: [facility]: [facility] Number: [id number] Breeze Hospital, [id number] Repository [place] [address]Kdy: Date:3036-21-81OJARMC NET FEDERAL ([place]) [address]PO [address] [place] [phone]: 06/21/2018 Secondary NOT GIVENUNK [place] Insurance:SELF PAY [facility] Number: Effective Repository Date:2018-06-18 06/18/2018 MERY [place] Primary EVANGELISTA Barretooster [id number] Insurance: [facility] Number: [id number] [facility]riners Hospital [id number] Repository [place] [address]Oin: Date:7649-95-25OHFEOW NET FEDERAL ([place]) [address]PO [address] [place] [phone]: 06/18/2018 Secondary NOT GIVENUNK [place] Insurance:SELF PAY [facility] Number: Effective Repository Date:2018-06-05 06/05/2018 Mery [place] Primary EVANGELISTA Barretooster [id number] [facility]: [facility] Number: [id number]. Joseph's [facility] [id number] Repository [place] [address]Dex: Date:6961-55-72NJMNIX NET FEDERAL ([place]) SERVICESPO [address] [address]CV: 06/05/2018 Secondary NOT GIVENUNK [place] Insurance:SELF PAY [facility] Number: Effective Repository Date:2018-06-05 12/26/2017 Mery [place] Primary EVANGELISTA Barretooster [id number] Insurance: [facility] Number: [id number]. Joseph's Women's Hospital [id number] [place]ository [place] [address]Nmo: Date:2017-12-26 (HP) 12/26/2017 Secondary NOT GIVENUNK [place] Insurance:SELF PAY [facility] Number: Effective Repository Date:2017-12-26 12/13/2017 Primary MERY [facility] Insurance:TricarePoli MIDDLETONDOB: Nighat and monica Number: [id number] [id number] [address] [place] [address] Repository Date:[facility] MD Name:HealthP [address] [address]Ydi: (120) [phone] [place], [phone] (HP) [place] [address]HL: 10/14/2017 MERY L Primary [facility]ERY [place] [facility]:TRICAREPoli [facility] cy Number: Effective [id number] Date:2017-10-14 - [place] Repository [facility] [id number] [facility] [place], [place] [address]Hry: Name:[facility] [place] [address]Fjy: [id number] [place], ([place]) [place] [phone]: (631) (HP) [phone] () 09/25/2017 Mery L Primary EVANGELISTA G [place] [id number] Insurance: [place] [facility] Number: [id number]. Joseph's Women's Hospital [id number] Repository [place] [address]Kly: Date:4015-29-81RGKMGW NET FEDERAL ([place]) SERVICESPO [address] [place] [phone]: 09/25/2017 Secondary NOT GIVENUNK [place] Insurance:SELF PAY [facility] Number: Effective Repository Date:2017-08-16 09/11/2017 Mery L Primary EVANGELISTA G [place] [id number] Insurance: [place] [facility] Number: [id number] Lake Placid, [id number] [place]ository [place] [address]Qms: Date:8183-52-42ZMUWYX NET FEDERAL () [address]PO [address] [place] [phone]: 09/11/2017 Secondary NOT GIVENUNK [place] Insurance:SELF PAY [facility] Number: Effective Repository Date:2017-09-11
== END ==
PROVIDERS: Family Provider Family Medicine; PCP Family Medicine; Referring Provider Family Medicine; Visit Provider Family Medicine
DX: G89.4 Chronic pain syndrome (principal)
CPT/HCPCS: 80307

== ENCOUNTER → 2018-08-14 15:55 | Outpatient (CLI) | payer OTHER, SELFPAY ==
--- NOTE | 2018-08-14 16:45 | MRI_ITS ---
STUDY: MRI BRAIN WITH AND WITHOUT CONTRAST (ATTENTION PITUITARY GLAND) REASON FOR EXAM: Female, 57 years old. Pituitary disorder. H/A's, excessive thirst. History of thyroid CA with thyroidectomy. TECHNIQUE: Standardized multiplanar fat and water weighted pulse sequences were obtained. 7 ml of Gadavist contrast material was administered intravenously for the contrast portion of the examination. COMPARISON: January 09, 2008 FINDINGS: Normal size of the pituitary gland for the patient?s age and gender. Normal enhancement of the pituitary gland, without a demonstrated intrapituitary lesion. Normal infundibular stalk and suprasellar cistern. Normal optic chiasm and hypothalamus. Normal size of the ventricles and extra-axial spaces for the patient's age. Normal white matter tracts of the supratentorial brain. Normal bilateral basal ganglia. Normal thalami. Normal flow voids within the major intracranial circulation suggesting patency by spin echo criteria. Normal venous enhancement. There is no enhancing intra-axial or extra-axial abnormality. There is no extra-axial fluid accumulation. Normal tectal plate and pineal gland. Normal midbrain, ann marie and medulla. Normal cerebellum. Normal basal cisterns. Normal bilateral temporal bones. Normal bilateral internal auditory canals. No demonstrated orbital abnormality, within the constraints of a routine brain study. Normal visualized paranasal sinuses. Normal calvarium and skull base. Normal visualized upper cervical spine. Normal visualized soft tissue structures. MRI/Brain W/WO Contrast IMPRESSION: Normal unenhanced and enhanced MRI of the pituitary gland. Electronically Signed: Juana Esteban MD at 14:54 EST Tel , Service support ,
== END ==
PROVIDERS: Family Provider Family Medicine; PCP Family Medicine
DX: E23.7 Disorder of pituitary gland, unspecified (principal)
CPT/HCPCS: 70553; A9585

== ENCOUNTER → 2018-10-12 13:43 | Outpatient (CLI) | payer OTHER, SELFPAY ==
[2018-10-12 14:28] LABS: Hematocrit 44.9 % (37-47); Hemoglobin 15.3 g/dl (12.0-15.0); Mean Corp Hgb Conc 34.1 g/gl (32-36); Mean Corpuscular Hgb 31.5 pg (27.0-32.0); Mean Corpuscular Volume 92.4 fL (81-99); Platelet Count 263 K/mm3 (150-450); RBC Distribution Width CV 13.5 % (11.6-14.6); RBC Distribution Width SD 45.6 fl (35.1-43.9); Red Blood Count 4.86 M/mm3 (4.2-5.4); White Blood Count 7.6 K/mm3 (4.4-11.0)
[2018-10-12 14:33] LABS: Scan Indicated on CBC? Y/N NO
[2018-10-12 15:09] LABS: AST(SGOT) 25 U/L (15-37); Alanine Aminotransfer ALT/SGPT 44 U/L (13-56); Albumin, Serum 3.9 g/dL (3.2-5.0); Alkaline Phosphatase 105 U/L (45-117); Anion Gap 7 (5-15); BUN 6 mg/dL (7-18); BUN/Creat Ratio 8.7 RATIO (10-20); Bilirubin, Direct 0.12 mg/dL (0.00-0.30); Calcium,Total 9.4 mg/dL (8.5-10.1); Chloride 107 mmol/L (98-107); Creatinine, Serum 0.69 mg/dL (0.55-1.02); EST Glomerular Filtration Rate 93 mL/min (>60); Est Glom Filt Rate - Afr Amer 113 mL/min (>60); Free T3 4.4 pg/mL (2.18-3.98); Glucose 103 mg/dL (74-106); Protein, Total 7.9 g/dL (6.4-8.2); Sodium Level 141 mmol/L (136-145); T4 Free Direct 1.54 ng/dL (0.76-1.46); Thyroid Stim Hormone (TSH) < 0.01 uIU/mL (0.358-3.74)
[2018-10-17 12:06] LABS: DHEA Sulfate 232.6 ug/dL (29.4-220.5)
[2018-10-17 15:24] LABS: Aldosterone, Serum 7.9 ng/dL (0.0-30.0); Renin, Plasma 1.088 ng/mL/hr (0.167-5.380)
== END ==
PROVIDERS: Family Provider Family Medicine; PCP Family Medicine
DX: E23.7 Disorder of pituitary gland, unspecified (principal); E89.0 Postprocedural hypothyroidism; E27.9 Disorder of adrenal gland, unspecified
CPT/HCPCS: 36415; 80048; 80076; 82088; 82627; 84244; 84439; 84443; 84481; 85027; 82626

== ENCOUNTER 2018-11-27 17:07 | Emergency (ER) | payer OTHER, SELFPAY ==
[2018-11-27 17:07] VITALS: BP 139/78; PULSE 108; RESP 16; TEMP 36.4; BMI 23.0
--- NOTE | 2018-11-27 17:36 | CT_ITS ---
STUDY: CT ABDOMEN AND PELVIS WITH CONTRAST REASON FOR EXAM: Female, 58 years old. Right lower quadrant pain after coughing RADIATION DOSAGE (If Supplied By Facility): CTDIvol = ( 11.30 ) mGy, DLP = ( 490.16 ) mGycm TECHNIQUE: Transaxial images were obtained from the dome of the diaphragm to the symphysis pubis with oral contrast. 100ML IV/Oral Isovue 300 was administered. Sagittal and coronal images were reconstructed. Individualized dose optimization techniques were used for this CT. COMPARISON: None. FINDINGS: The visualized lung bases are unremarkable. The visualized portions of the heart are within normal limits. There is decreased attenuation of the liver consistent with steatosis. Normal gallbladder and extrahepatic biliary system. Normal spleen. Normal pancreas. Normal bilateral adrenal glands. Normal right kidney. Normal left kidney. Normal visualized stomach. There are mildly distended loops of small bowel present with contrast. There is mild to moderate stool in the colon. There is abundant stool within the cecum and ascending colon best seen image #52 coronal views. There is a noninflamed gas filled appearance of the appendix measuring up to 6 mm. Aorta is partially calcified. There is a separate takeoff for the hepatic and splenic arteries which is a normal variant. There is moderate atherosclerotic disease within the distal aorta at the bifurcation consistent with mild stenosis. Normal inferior vena cava. Normal retroperitoneum. Bladder is distended. There bilateral fallopian tube Essure devices. There is a small umbilical hernia containing fat. Normal osseous structures. CT/Abdomen/Pelvis WITH Contrast IMPRESSION: Constipation. There bilateral fallopian tube Essure devices. No evidence of appendicitis. Mild distal aortic stenosis. Overdistention of the bladder. Mild hepatic steatosis. Electronically Signed: Katina Salter MD at 19:39 EDT Tel , Service support ,
--- NOTE | 2018-11-27 17:39 | ED.DCSUM_ITS ---
- ER Visit Summary Date of Service: 11/27/18 Chief Complaint: Abdominal pain History of Present Illness: The patient is a 58 F presenting with right lower quadrant abdominal pain. Patient states this started yesterday and worsened today. She has had subjective fever. She denies nausea, vomiting, diarrhea. She states she has had normal bowel movements. She denies urinary complaints. She has had a decreased appetite today. Denies other complaints. Physical Examination: Vitals are stable. Patient is afebrile. Alert no acute distress. HEENT exam is unremarkable. Neck is supple. Lungs are clear and equal bilaterally. Heart is regular rate and rhythm. Abdomen is soft right lower quadrant tenderness with no rebound or guarding Extremities are unremarkable. Skin is warm and dry. Remainder of exam is unremarkable. Emergency Department Course and Treatment: Patient was given IV fluids. She declined pain medication. CBC, chemistries unremarkable. Urinalysis unremarkable. CT abdomen pelvis shows constipation. There bilateral fallopian tube Essure devices. No evidence of appendicitis. Mild distal aortic stenosis. Overdistention of the bladder. Mild hepatic steatosis. On reevaluation, patient is resting comfortably. Patient states she has been having normal bowel movements and is urinating without difficulty. She is given prescription for Bentyl. She is advised to follow-up with her primary care physician. Advised return to the ED for worsening complaints. Disposition: Discharge home Impression: Abdominal pain This note was generated with [employer] dictation software. It may contain incorrect words, spelling, and punctuation that were not noted in review of the chart prior to signing ED Disposition - Plan for ED Patient: Instructions: ED Abdominal Pain Unkn Cause Prescriptions: Dicyclomine HCl [Bentyl] 20 mg PO TIDAC #20 capsule Referrals: Roberto Sky MD [Primary Care Provider] -
[2018-11-27 18:05] LABS: Mucous, Urine 0 SEEN /hpf (<or=2+); Red Blood Cells-Urine 0 SEEN /hpf (0-5)
[2018-11-27 18:07] LABS: Color, Urine Yellow (Yellow); Glucose, Dipstick Normal (Normal); Ketone-Dipstick Negative (Negative); Leukocyte Esterase-Dipstick 25 /ul (Negative); Nitrite-Dipstick Positive (Negative); Occult Blood-Urine Negative /ul (Negative); Protein-Dipstick Negative (Negative); Urine Bilirubin Dipstick Negative (Negative); Urine Clarity Clear (Clear); Urine Urobilinogen Normal (Normal)
[2018-11-27 18:09] LABS: Absolute Lymphocyte Count 2.71 X10^3/ul (0.83-4.51); Absolute Neutrophil Count 3.3 X10^3/uL (2.0-7.7); Basophil# 0.04 X10^3/uL; Basophil% 0.6 % (0-1); Eosinophil# 0.07 X10^3/uL; Hematocrit 47.7 % (37-47); Hemoglobin 16.7 g/dl (12.0-15.0); Lymphocyte # 2.71 X10^3/ul (4.0); Lymphocyte % 38.9 % (19-41); Mean Corpuscular Hgb 30.9 pg (27.0-32.0); Mean Corpuscular Volume 88.3 fL (81-99); Mean Platelet Vol. 9.8 fl (6.2-12.0); Monocyte# 0.79 X10^3/uL; Monocyte% 11.4 % (0-10); Neutrophil # 3.34 X10^3/uL (2.7-7.7); POSITIVE COUNT NO; POSITIVE DIFFERENTIAL NO; POSITIVE MORPHOLOGY NO; Platelet Count 254 K/mm3 (150-450); RBC Distribution Width CV 13.3 % (11.6-14.6); RBC Distribution Width SD 43.4 fl (35.1-43.9)
[2018-11-27 18:14] LABS: Bacteria 1+ /hpf (None Seen); Squamous Epithelial Cells - UA 0-5 SEEN /hpf (5-10); White Blood Cells 0-5 SEEN /hpf (0-5)
[2018-11-27 18:18] LABS: Anion Gap 4 (5-15); BUN 12 mg/dL (7-18); BUN/Creat Ratio 14.2 RATIO (10-20); Calcium,Total 9.2 mg/dL (8.5-10.1); Chloride 109 mmol/L (98-107); Creatinine, Serum 0.85 mg/dL (0.55-1.02); EST Glomerular Filtration Rate 74 mL/min (>60); Est Glom Filt Rate - Afr Amer 89 mL/min (>60); Estimated Creatinine Clearance 61.13 ml/min; Glucose 74 mg/dL (74-106); Potassium 4.3 mmol/L (3.5-5.1); Sodium Level 140 mmol/L (136-145)
--- NOTE | 2018-11-27 20:11 | ED.DEP ---
ED Disposition - Plan for ED Patient: Instructions: ED Abdominal Pain Unkn Cause Prescriptions: Dicyclomine HCl [Bentyl] 20 mg PO TIDAC #20 capsule Referrals: Roberto Sky MD [Primary Care Provider] -
[2018-11-27 20:27] VITALS: BP 117/56; PULSE 74; RESP 16
== END 2018-11-27 20:27 | disposition home or self-care (01) ==
LOC: ED 17:48
PROVIDERS: Emergency Provider Emergency Medicine; Family Provider Family Medicine; PCP Family Medicine
DX: R10.31 Right lower quadrant pain (principal); Z72.0 Tobacco use
CPT/HCPCS: 74177; 80048; 81001; 85025; 96360; 99283; J7040; Q9967; A4216

== ENCOUNTER → 2019-08-01 11:04 | Outpatient (CLI) | payer OTHER, SELFPAY ==
[2019-08-01 11:13] LABS: Bacteria 0 SEEN /hpf (None Seen); Mucous, Urine 0 SEEN /hpf (<or=2+); White Blood Cells 0 SEEN /hpf (0-5)
[2019-08-01 12:25] LABS: Absolute Lymphocyte Count 3.17 X10^3/uL (0.83-4.51); Absolute Neutrophil Count 6.1 X10^3/uL (2.0-7.7); Basophil# 0.06 X10^3/uL; Basophil% 0.6 % (0-1); Eosinophil# 0.08 X10^3/uL; Eosinophils% 0.8 % (0-5); Hematocrit 49.6 % (37-47); Hemoglobin 15.9 g/dL (12.0-15.0); Lymphocyte # 3.17 X10^3/ul (4.0); Lymphocyte % 31.6 % (19-41); Mean Corp Hgb Conc 32.1 g/dL (32-36); Mean Corpuscular Hgb 29.7 pg (27.0-32.0); Mean Corpuscular Volume 92.7 fL (81-99); Mean Platelet Vol. 10.2 fl (6.2-12.0); Monocyte# 0.64 X10^3/uL; Monocyte% 6.4 % (0-10); NRBC Flagged by Analyzer 0 % (0-5); Neutrophil # 6.06 X10^3/uL (2.7-7.7); Neutrophil % 60.3 % (47-70); Platelet Count 264 K/mm3 (150-450); RBC Distribution Width CV 12.9 % (11.6-14.6); RBC Distribution Width SD 43.9 fl (35.1-43.9); Red Blood Count 5.35 M/mm3 (4.2-5.4)
[2019-08-01 12:28] LABS: Color, Urine Straw (Yellow); Glucose, Dipstick Normal (Normal); Ketone-Dipstick Negative (Negative); Leukocyte Esterase-Dipstick 25 /ul (Negative); Nitrite-Dipstick Negative (Negative); Occult Blood-Urine Negative /ul (Negative); Protein-Dipstick Negative (Negative); Urine Bilirubin Dipstick Negative (Negative); Urine Clarity Clear (Clear); Urine Urobilinogen Normal (Normal)
[2019-08-01 12:31] LABS: Red Blood Cells-Urine 0-5 SEEN /hpf (0-5); Squamous Epithelial Cells - UA 0-5 SEEN /hpf (5-10)
[2019-08-01 13:08] LABS: Hemoglobin A1c 5.6 % (4.2-6.3)
[2019-08-01 13:18] LABS: AST(SGOT) 21 U/L (15-37); Alanine Aminotransfer ALT/SGPT 41 U/L (13-56); Alkaline Phosphatase 103 U/L (45-117); Anion Gap 5 (5-15); BUN 11 mg/dL (7-18); Calcium,Total 9.4 mg/dL (8.5-10.1); Chloride 108 mmol/L (98-107); Cholesterol 212 mg/dL (200); Creatinine, Serum 0.73 mg/dL (0.55-1.02); EST Glomerular Filtration Rate 87 mL/min (>60); Est Glom Filt Rate - Afr Amer 105 mL/min (>60); Globulin 4.1 g/dL (2.2-4.2); Glucose 86 mg/dL (74-106); High Density Lipoprotein 66 mg/dL; Potassium 4.4 mmol/L (3.5-5.1); Protein, Total 8.1 g/dL (6.4-8.2); Sodium Level 137 mmol/L (136-145); Thyroid Stim Hormone (TSH) 0.16 uIU/mL (0.358-3.74); Triglycerides 116 mg/dL; Very Low Density Lipoprotein 23 mg/dL (5-40)
== END ==
LOC: MTLAB 11:09
PROVIDERS: PCP Family Medicine; Referring Provider Family Medicine; Visit Provider Family Medicine
DX: E03.9 Hypothyroidism, unspecified (principal); E83.51 Hypocalcemia; D75.1 Secondary polycythemia; G89.4 Chronic pain syndrome; R53.83 Other fatigue
CPT/HCPCS: 36415; 80053; 80061; 81001; 82306; 83036; 83970; 84443; 85025

== ENCOUNTER → 2019-11-01 10:57 | Outpatient (CLI) | payer OTHER, SELFPAY ==
[2019-11-01 12:59] LABS: PTHIN 51.5 pg/mL (18.4-80.1)
[2019-11-01 13:02] LABS: Vitamin D,25 Hydroxy 28.2 ng/mL
[2019-11-01 13:12] LABS: AST(SGOT) 17 U/L (15-37); Alanine Aminotransfer ALT/SGPT 30 U/L (13-56); Alkaline Phosphatase 105 U/L (45-117); Anion Gap 8 (5-15); BUN 12 mg/dL (7-18); BUN/Creat Ratio 20.6 RATIO (10-20); Calcium,Total 10.1 mg/dL (8.5-10.1); Chloride 107 mmol/L (98-107); Creatinine, Serum 0.58 mg/dL (0.55-1.02); EST Glomerular Filtration Rate 113 mL/min (>60); Est Glom Filt Rate - Afr Amer 137 mL/min (>60); Glucose 80 mg/dL (74-106); Potassium 4.1 mmol/L (3.5-5.1); Sodium Level 139 mmol/L (136-145); Thyroid Stim Hormone (TSH) 0.04 uIU/mL (0.358-3.74)
== END ==
PROVIDERS: PCP Family Medicine; Referring Provider Family Medicine; Visit Provider Family Medicine
DX: E03.9 Hypothyroidism, unspecified (principal); E83.51 Hypocalcemia
CPT/HCPCS: 36415; 80053; 82306; 83970; 84443

== ENCOUNTER → 2019-11-22 14:48 | Outpatient (CLI) | payer OTHER, SELFPAY ==
--- NOTE | 2019-11-22 15:00 | US_ITS ---
STUDY: THYROID ULTRASOUND REASON FOR EXAM: Female, 59 years old. H/O THYROID CA TECHNIQUE: Ultrasound evaluation of the thyroid was performed with real-time and static moy-scale imaging. COMPARISON: June 18, 2018. FINDINGS: RIGHT LOBE: Nonvisualization due to thyroidectomy. LEFT LOBE: Nonvisualization due to thyroidectomy. Previously suggested residual thyroid tissue is not identified. Bilateral cervical nodes are noted lateral to the thyroid bed with the largest on the left 1.2 cm in maximum size. Subcentimeter nodes on the right. US/Thyroid IMPRESSION: Status post thyroidectomy. No significant adenopathy. Electronically Signed: Jamie Parmar DO at 17:32 EDT Tel [phone], Service support ,
[2019-11-22 15:26] LABS: Hematocrit 43.9 % (37-47); Hemoglobin 14.4 g/dL (12.0-15.0); Mean Corp Hgb Conc 32.8 g/dL (32-36); Mean Corpuscular Hgb 29.8 pg (27.0-32.0); Mean Corpuscular Volume 90.7 fL (81-99); Platelet Count 298 K/mm3 (150-450); RBC Distribution Width CV 12.8 % (11.6-14.6); RBC Distribution Width SD 42.5 fl (35.1-43.9); Red Blood Count 4.84 M/mm3 (4.2-5.4); White Blood Count 10.7 K/mm3 (4.4-11.0)
[2019-11-22 16:02] LABS: Vitamin D,25 Hydroxy 30.3 ng/mL
[2019-11-22 16:20] LABS: AST(SGOT) 19 U/L (15-37); Alanine Aminotransfer ALT/SGPT 34 U/L (13-56); Albumin, Serum 3.6 g/dL (3.2-5.0); Alkaline Phosphatase 103 U/L (45-117); Anion Gap 6 (5-15); BUN 13 mg/dL (7-18); Bilirubin, Direct 0.11 mg/dL (0.00-0.30); Chloride 106 mmol/L (98-107); Creatinine, Serum 0.86 mg/dL (0.55-1.02); EST Glomerular Filtration Rate 72 mL/min (>60); Est Glom Filt Rate - Afr Amer 87 mL/min (>60); Free T3 3.3 pg/mL (2.18-3.98); Globulin 3.8 g/dL (2.2-4.2); Glucose 116 mg/dL (74-106); Magnesium 2.1 mg/dL (1.6-2.6); Phosphorus 3.4 mg/dL (2.5-4.9); Potassium 3.7 mmol/L (3.5-5.1); Protein, Total 7.4 g/dL (6.4-8.2); Sodium Level 140 mmol/L (136-145); T4 Free Direct 1.43 ng/dL (0.76-1.46); Thyroid Stim Hormone (TSH) 0.02 uIU/mL (0.358-3.74)
[2019-11-25 08:43] LABS: PTHIN 68.5 pg/mL (18.4-80.1)
[2019-11-25 20:58] LABS: Thyroglobulin Antibody < 1.0 IU/mL (0.0-0.9)
== END ==
PROVIDERS: PCP Family Medicine
DX: Z85.850 Personal history of malignant neoplasm of thyroid (principal); E55.9 Vitamin D deficiency, unspecified
CPT/HCPCS: 36415; 76536; 80048; 80076; 82306; 83735; 83970; 84100; 84439; 84443; 84481; 85027; 86800

== ENCOUNTER → 2020-07-28 15:20 | Outpatient (CLI) | payer OTHER, SELFPAY ==
[2020-04-30 13:53] VITALS: BMI 23.0
[2020-07-28 21:26] LABS: Calcium, Urine (Random) < 2.0 mg/dL (Not Estab.); Osmolality, Urine 160 mOsm/KG
== END ==
PROVIDERS: PCP Family Medicine; Referring Provider Family Medicine; Visit Provider Family Medicine
DX: E83.51 Hypocalcemia (principal)
CPT/HCPCS: 82340; 83935

== ENCOUNTER → 2020-08-11 13:59 | Outpatient (CLI) | payer OTHER, SELFPAY ==
[2020-08-11 13:14] VITALS: BMI 28.7
[2020-08-11 15:17] LABS: Absolute Lymphocyte Count 3.15 X10^3/uL (0.83-4.51); Absolute Neutrophil Count 4.2 X10^3/uL (2.0-7.7); Basophil# 0.06 X10^3/uL; Basophil% 0.8 % (0-1); Eosinophil# 0.07 X10^3/uL; Eosinophils% 0.9 % (0-5); Hematocrit 46.6 % (37-47); Hemoglobin 15.5 g/dL (12.0-15.0); Lymphocyte # 3.15 X10^3/ul (4.0); Lymphocyte % 39.5 % (19-41); Mean Corp Hgb Conc 33.3 g/dL (32-36); Mean Corpuscular Hgb 29.9 pg (27.0-32.0); Mean Platelet Vol. 10.6 fl (6.2-12.0); Monocyte# 0.49 X10^3/uL; Monocyte% 6.1 % (0-10); NRBC Flagged by Analyzer 0 % (0-5); Neutrophil % 52.6 % (47-70); Platelet Count 303 K/mm3 (150-450); RBC Distribution Width CV 12.9 % (11.6-14.6); RBC Distribution Width SD 42.5 fl (35.1-43.9); Red Blood Count 5.18 M/mm3 (4.2-5.4)
[2020-08-11 15:42] LABS: Vitamin D,25 Hydroxy 32.5 ng/mL
[2020-08-11 15:43] LABS: Magnesium 2.4 mg/dL (1.6-2.6)
[2020-08-11 15:48] LABS: T4 Free Direct 1.52 ng/dL (0.76-1.46); Thyroid Stim Hormone (TSH) 0.02 uIU/mL (0.358-3.74)
[2020-08-12 08:29] LABS: PTHIN 48.5 pg/mL (18.4-80.1)
[2020-08-13 20:49] LABS: Anti-Thyroglobulin AB < 1.0 IU/mL (0.0-0.9); Thyroglobulin, Serum Qt. 0.2 ng/mL (1.5-38.5)
[2020-08-14 12:42] LABS: Thyroid Stim Immunoglob <0.10 IU/L (0.00-0.55)
== END ==
PROVIDERS: PCP Family Medicine; Referring Provider Internal Medicine Endocrinology, Diabetes & Metabolism; Visit Provider Internal Medicine Endocrinology, Diabetes & Metabolism
DX: E83.51 Hypocalcemia (principal); E03.9 Hypothyroidism, unspecified; D75.1 Secondary polycythemia; G89.4 Chronic pain syndrome
CPT/HCPCS: 36415; 82306; 83735; 83970; 84432; 84439; 84443; 84445; 84481; 85025; 86800

== ENCOUNTER → 2020-10-01 15:56 | Outpatient (CLI) | payer OTHER, SELFPAY ==
[2020-08-11 13:14] VITALS: BMI 28.7
[2020-10-01 18:27] LABS: T4 Free Direct 1.42 ng/dL (0.76-1.46); Thyroid Stim Hormone (TSH) 0.02 uIU/mL (0.358-3.74)
== END ==
PROVIDERS: PCP Family Medicine; Referring Provider Internal Medicine Endocrinology, Diabetes & Metabolism; Visit Provider Internal Medicine Endocrinology, Diabetes & Metabolism
DX: E89.0 Postprocedural hypothyroidism (principal)
CPT/HCPCS: 36415; 84439; 84443

== ENCOUNTER → 2020-11-04 16:54 | Outpatient (CLI) | payer OTHER, SELFPAY ==
[2020-08-11 13:14] VITALS: BMI 28.7
--- NOTE | 2020-11-04 16:57 | RAD_ITS ---
STUDY: X-RAY - LUMBAR SPINE REASON FOR EXAM: Female, 59 years old. LOW BACK PAIN TECHNIQUE: 5 view(s) of the lumbar spine were obtained including oblique views. COMPARISON: None FINDINGS: Normal lumbar lordosis. There is no substantial scoliosis. There is a normal alignment of the vertebrae. Mild degree of spondylosis at the L2-L3 and L4-L5 levels. Mild degree of disc space narrowing at the L5-S1 level. There is atherosclerotic calcification of the abdominal aorta without a demonstrated aneurysm. ESSURE devices are seen in the fallopian tubes bilaterally. RAD/L/S Spine Min 4 Views IMPRESSION: Degenerative changes of the spine, as detailed above. Electronically Signed: Juventino Daugherty MD at 8:58 EDT , Service support ,
[2020-11-04 18:33] LABS: Prolactin 7.5 ng/mL
== END ==
PROVIDERS: PCP Family Medicine; Referring Provider Family Medicine; Visit Provider Family Medicine
DX: R63.5 Abnormal weight gain (principal); D35.00 Benign neoplasm of unspecified adrenal gland; M54.5 Low back pain
CPT/HCPCS: 36415; 72110; 82627; 84146; 82626

== ENCOUNTER → 2020-11-06 | Outpatient (CLI) | payer OTHER, SELFPAY ==
[2020-08-11 13:14] VITALS: BMI 28.7
[2020-11-13 14:11] LABS: Cortisol, Urinary Free 3 ug/L (Undefined)
[2020-11-13 20:19] LABS: Cortisol, Free 24Ur 9 ug/24 hr (6-42)
== END | disposition home or self-care (01) ==
LOC: LABSPEC 12:08
PROVIDERS: PCP Family Medicine; Referring Provider Family Medicine; Visit Provider Family Medicine
DX: R63.5 Abnormal weight gain (principal); D35.00 Benign neoplasm of unspecified adrenal gland
CPT/HCPCS: 81050; 82530

== ENCOUNTER → 2021-01-01 13:26 | Outpatient (CLI) | payer OTHER, SELFPAY ==
[2020-08-11 13:14] VITALS: BMI 28.7
[2021-01-01 15:55] LABS: T4 Free Direct 1.33 ng/dL (0.76-1.46); Thyroid Stim Hormone (TSH) 0.17 uIU/mL (0.358-3.74)
== END ==
PROVIDERS: PCP Family Medicine; Referring Provider Internal Medicine Endocrinology, Diabetes & Metabolism; Visit Provider Internal Medicine Endocrinology, Diabetes & Metabolism
DX: E89.0 Postprocedural hypothyroidism (principal)
CPT/HCPCS: 36415; 84439; 84443

== ENCOUNTER → 2021-05-07 14:18 | Outpatient (CLI) | payer OTHER, SELFPAY ==
[2021-05-07 17:40] LABS: Hematocrit 47.6 % (37-47); Hemoglobin 15.7 g/dL (12.0-15.0); Mean Corpuscular Hgb 30.2 pg (27.0-32.0); Mean Corpuscular Volume 91.5 fL (81-99); Platelet Count 264 K/mm3 (150-450); RBC Distribution Width CV 13.4 % (11.6-14.6); RBC Distribution Width SD 45.5 fl (35.1-43.9); White Blood Count 10.3 K/mm3 (4.4-11.0)
[2021-05-07 18:05] LABS: ALB/GLOB Ratio 0.9 RATIO (0.9-2.4); AST(SGOT) 22 U/L (15-37); Alanine Aminotransfer ALT/SGPT 42 U/L (13-56); Albumin, Serum 3.7 g/dL (3.2-5.0); Alkaline Phosphatase 117 U/L (45-117); Anion Gap 8 (5-15); BUN 13 mg/dL (7-18); BUN/Creat Ratio 17.5 RATIO (10-20); Calcium,Total 9.4 mg/dL (8.5-10.1); Chloride 104 mmol/L (98-107); Creatinine, Serum 0.74 mg/dL (0.55-1.02); EST Glomerular Filtration Rate 85 mL/min (>60); Est Glom Filt Rate - Afr Amer 103 mL/min (>60); Free T3 3.2 pg/mL (2.18-3.98); Globulin 4.3 g/dL (2.2-4.2); Glucose 117 mg/dL (74-106); Sodium Level 136 mmol/L (136-145); T4 Free Direct 1.35 ng/dL (0.76-1.46); Thyroid Stim Hormone (TSH) 0.48 uIU/mL (0.358-3.74)
== END ==
PROVIDERS: PCP Family Medicine; Referring Provider Family Medicine; Visit Provider Family Medicine
DX: E03.9 Hypothyroidism, unspecified (principal); M54.50 Low back pain, unspecified
CPT/HCPCS: 36415; 80053; 84439; 84443; 84481; 85027

== ENCOUNTER → 2021-11-09 | Outpatient (CLI) | payer OTHER, SELFPAY ==
[2021-11-09 17:43] LABS: Hematocrit 50.4 % (37-47); Hemoglobin 16.8 g/dL (12.0-15.0); Mean Corp Hgb Conc 33.3 g/dL (32-36); Mean Corpuscular Hgb 30.1 pg (27.0-32.0); Mean Corpuscular Volume 90.2 fL (81-99); Mean Platelet Vol. 10.7 fl (6.2-12.0); Platelet Count 301 K/mm3 (150-450); RBC Distribution Width CV 13.5 % (11.6-14.6); RBC Distribution Width SD 44.2 fl (35.1-43.9); Red Blood Count 5.59 M/mm3 (4.2-5.4); White Blood Count 10.1 K/mm3 (4.4-11.0)
[2021-11-09 18:11] LABS: AST(SGOT) 19 U/L (15-37); Alanine Aminotransfer ALT/SGPT 38 U/L (13-56); Albumin, Serum 4.2 g/dL (3.2-5.0); Alkaline Phosphatase 109 U/L (45-117); Anion Gap 9 (5-15); BUN 12 mg/dL (7-18); BUN/Creat Ratio 16.9 RATIO (10-20); Calcium,Total 9.4 mg/dL (8.5-10.1); Chloride 103 mmol/L (98-107); Creatinine, Serum 0.71 mg/dL (0.55-1.02); EST Glomerular Filtration Rate 90 mL/min (>60); Est Glom Filt Rate - Afr Amer 108 mL/min (>60); Globulin 4.3 g/dL (2.2-4.2); Glucose 75 mg/dL (74-106); Potassium 3.9 mmol/L (3.5-5.1); Protein, Total 8.5 g/dL (6.4-8.2); Sodium Level 135 mmol/L (136-145); Thyroid Stim Hormone (TSH) 0.49 uIU/mL (0.358-3.74)
[2021-11-10 08:10] LABS: PTHIN 49.3 pg/mL (18.4-80.1)
== END | disposition home or self-care (01) ==
LOC: MFPLAB 15:29
PROVIDERS: PCP Family Medicine; Referring Provider Family Medicine; Visit Provider Family Medicine
DX: D75.1 Secondary polycythemia (principal); E83.51 Hypocalcemia; E55.9 Vitamin D deficiency, unspecified; E03.9 Hypothyroidism, unspecified
CPT/HCPCS: 36415; 80053; 82306; 83970; 84443; 85027

== ENCOUNTER → 2022-02-10 | Outpatient (CLI) | payer OTHER, SELFPAY ==
[2022-02-10 18:02] LABS: Anion Gap 7 (5-15); BUN 13 mg/dL (7-18); BUN/Creat Ratio 19.6 RATIO (10-20); Calcium,Total 9.4 mg/dL (8.5-10.1); Chloride 108 mmol/L (98-107); Creatinine, Serum 0.66 mg/dL (0.55-1.02); EST Glomerular Filtration Rate 97 mL/min (>60); Est Glom Filt Rate - Afr Amer 117 mL/min (>60); Glucose 87 mg/dL (74-106); Sodium Level 138 mmol/L (136-145)
[2022-02-10 18:14] LABS: Vitamin D,25 Hydroxy 32.3 ng/mL
== END | disposition home or self-care (01) ==
LOC: MFPLAB 15:48
PROVIDERS: PCP Family Medicine; Visit Provider Family Medicine
DX: E55.9 Vitamin D deficiency, unspecified (principal); M54.2 Cervicalgia; G89.29 Other chronic pain
CPT/HCPCS: 36415; 80048; 82306

== ENCOUNTER → 2022-09-27 | Outpatient (CLI) | payer OTHER, SELFPAY ==
[2022-09-27 18:04] LABS: Absolute Neutrophil Count 5.5 X10^3/uL (2.0-7.7); Basophil# 0.08 X10^3/uL; Basophil% 0.8 % (0-1); Eosinophil# 0.11 X10^3/uL; Eosinophils% 1.1 % (0-5); Hematocrit 45.5 % (37-47); Hemoglobin 14.6 g/dL (12.0-15.0); Lymphocyte % 35.7 % (19-41); Mean Corp Hgb Conc 32.1 g/dL (32-36); Mean Corpuscular Hgb 29.1 pg (27.0-32.0); Mean Corpuscular Volume 90.8 fL (81-99); Mean Platelet Vol. 10.5 fl (6.2-12.0); Monocyte# 0.74 X10^3/uL; Monocyte% 7.3 % (0-10); NRBC Flagged by Analyzer 0 % (0-5); Neutrophil # 5.53 X10^3/uL (2.7-7.7); Neutrophil % 54.9 % (47-70); Platelet Count 297 K/mm3 (150-450); RBC Distribution Width SD 43.2 fl (35.1-43.9); Red Blood Count 5.01 M/mm3 (4.2-5.4); White Blood Count 10.1 K/mm3 (4.4-11.0)
[2022-09-27 20:22] LABS: Vitamin B12 607 pg/mL (211-911)
[2022-09-27 20:47] LABS: AST(SGOT) 21 U/L (15-37); Alanine Aminotransfer ALT/SGPT 39 U/L (13-56); Albumin, Serum 3.8 g/dL (3.2-5.0); Alkaline Phosphatase 87 U/L (45-117); Anion Gap 7 (5-15); BUN 18 mg/dL (7-18); BUN/Creat Ratio 26.9 RATIO (10-20); Calcium,Total 9.5 mg/dL (8.5-10.1); Chloride 110 mmol/L (98-107); Creatinine, Serum 0.67 mg/dL (0.55-1.02); EST Glomerular Filtration Rate 96 mL/min (>60); Est Glom Filt Rate - Afr Amer 116 mL/min (>60); Ferritin 105 ng/mL (8-252); Free T3 2.8 pg/mL (2.18-3.98); Globulin 3.9 g/dL (2.2-4.2); Glucose 78 mg/dL (74-106); Potassium 4.3 mmol/L (3.5-5.1); Protein, Total 7.7 g/dL (6.4-8.2); Sodium Level 139 mmol/L (136-145); T4 Free Direct 1.53 ng/dL (0.76-1.46); Thyroid Stim Hormone (TSH) 0.08 uIU/mL (0.358-3.74)
[2022-09-28 07:36] LABS: PTHIN 43.7 pg/mL (18.4-80.1)
[2022-09-29 15:08] LABS: PROEL- A/G Ratio 1.1 (0.7-1.7); PROEL- Albumin 3.8 g/dL (2.9-4.4); PROEL- Alpha-1 Globulin 0.3 g/dL (0.0-0.4); PROEL- Alpha-2 Globulin 0.8 g/dL (0.4-1.0); PROEL- Beta Globulin 1.2 g/dL (0.7-1.3); PROEL- Gamma Globulin 1.1 g/dL (0.4-1.8); PROEL- Globulin, Total 3.4 g/dL (2.2-3.9); PROEL- TOTAL PROTEIN 7.2 g/dL (6.0-8.5)
[2022-09-29 15:15] LABS: ANTINUCLEAR ANTIBODIES DIRECT Negative (Negative)
== END | disposition home or self-care (01) ==
LOC: MTLAB 15:26
PROVIDERS: PCP Family Medicine; Referring Provider Family Medicine; Visit Provider Family Medicine
DX: E83.51 Hypocalcemia (principal); R53.83 Other fatigue; D75.1 Secondary polycythemia; E03.9 Hypothyroidism, unspecified
CPT/HCPCS: 36415; 80053; 82306; 82607; 82728; 82746; 83970; 84165; 84439; 84443; 84481; 85025; 86038; 86225; 86235

== ENCOUNTER → 2022-11-25 | Outpatient (CLI) | payer OTHER, SELFPAY ==
[2022-11-25 18:01] LABS: Absolute Lymphocyte Count 3.92 X10^3/uL (0.83-4.51); Absolute Neutrophil Count 4.8 X10^3/uL (2.0-7.7); Basophil# 0.06 X10^3/uL; Basophil% 0.6 % (0-1); Eosinophil# 0.08 X10^3/uL; Eosinophils% 0.8 % (0-5); Hemoglobin 15.4 g/dL (12.0-15.0); Lymphocyte # 3.92 X10^3/ul (0.83-4.51); Lymphocyte % 40.9 % (19-41); Mean Corp Hgb Conc 33.5 g/dL (32-36); Mean Corpuscular Hgb 29.8 pg (27.0-32.0); Mean Platelet Vol. 10.7 fl (6.2-12.0); Monocyte# 0.77 X10^3/uL; NRBC Flagged by Analyzer 0 % (0-5); Neutrophil # 4.75 X10^3/uL (2.7-7.7); Neutrophil % 49.6 % (47-70); Platelet Count 258 K/mm3 (150-450); RBC Distribution Width CV 13.7 % (11.6-14.6); Red Blood Count 5.17 M/mm3 (4.2-5.4); White Blood Count 9.6 K/mm3 (4.4-11.0)
[2022-11-25 18:55] LABS: AST(SGOT) 36 U/L (15-37); Alanine Aminotransfer ALT/SGPT 62 U/L (13-56); Albumin, Serum 3.9 g/dL (3.2-5.0); Alkaline Phosphatase 93 U/L (45-117); Anion Gap 5 (5-15); BUN 14 mg/dL (7-18); BUN/Creat Ratio 22.7 RATIO (10-20); Calcium,Total 9.1 mg/dL (8.5-10.1); Chloride 111 mmol/L (98-107); Creatinine, Serum 0.62 mg/dL (0.55-1.02); EST Glomerular Filtration Rate 105 mL/min (>60); Est Glom Filt Rate - Afr Amer 127 mL/min (>60); Free T3 2.7 pg/mL (2.18-3.98); Globulin 3.8 g/dL (2.2-4.2); Glucose 84 mg/dL (74-106); Potassium 3.8 mmol/L (3.5-5.1); Protein, Total 7.7 g/dL (6.4-8.2); Sodium Level 139 mmol/L (136-145); T4 Free Direct 1.39 ng/dL (0.76-1.46)
== END | disposition home or self-care (01) ==
LOC: MFPLAB 16:13
PROVIDERS: PCP Family Medicine; Visit Provider Family Medicine
DX: E03.9 Hypothyroidism, unspecified (principal); Z86.018 Personal history of other benign neoplasm
CPT/HCPCS: 36415; 80053; 82533; 82627; 84439; 84443; 84481; 85025; 82626

== ENCOUNTER 2023-07-14 11:05 | Observation (INO) | payer OTHER, SELFPAY ==
--- NOTE | 2023-07-14 | IMM_PTH ---
PATHOLOGY RESULTS PATIENT: MERY ALLAN LOC: MS3 U#:[id number] AGE/SX: 62/F ROOM: [facility] [place] RE07/14/[address]: Dr. Charles Vogel MD : 1960 BED: 1 DIS: 07/16/2023 SPEC #: [id number] RECD: 07/18/23 13:52 STATUS: PILLO REQ #: [id number] HEATH: 07/14/23 00:[address]: Siddharth Longo DEPT: IMMUNOHISTOCHEMISTRY RECD BY: Orin Singleton ENTERED: 07/18/23 13:53 SP TYPE: IMMUNO OTHR DR: MD Dr. Roberto Diaz MD Dr. Paige Pierce, MD Tissues: Esophageal mucous membrane Procedures: P53 (initial) KI-67 (add) Comments: @ Specimen number changed from [id number] to [id number] @ on 07/18/23 at 1431 by RGOOD. PHYSICIAN & [address] [address] SPECIMEN INFORMATION: Tissue Source: Distal esophagus Clinical Info: Raven rose Specimen Number: [id number] CPT code: 91221, 99379 METHODOLOGY: Deparaffinized sections of prefer/formalin-fixed tissue or PAP/DQ stained slides are incubated with monoclonal/polyclonal antibodies/oligonucleotide probes. Localization is made via biotin free immunoperoxidase method. Appropriate controls are performed and reacted as expected. Results on target cell population are indicated in the following table: RESULTS: ANTIBODY / CLONE RESULT P53 (DO-7) negative (null pattern) Ki-67 (30-9) positive, very low These tests were developed and their performance characteristics determined by [facility]. They may not have been cleared or approved by the U.S. Food and Drug Administration. The FDA has determined that such clearance or approval is not necessary. The above immunohistochemical/dualISH markers are ordered and reviewed by the Pathologist. INTERPRETATION: Distal esophagus, biopsy: Negative for dysplasia. VIVIENNE:megan 07/19/2023
[2023-07-14 11:06] VITALS: BP 152/88; PULSE 103; RESP 18; TEMP 36.6; O2SAT 97; BMI 28.1
--- NOTE | 2023-07-14 11:48 | EDS_ITS ---
HPI History of Present Illness Chief Complaint: Abd Pain Informant: patient Onset/Context/Timing Onset: Days Context: Gradual Onset Narrative Narrative: Patient presents with abdominal pain with nausea and vomiting after eating deer trail few days ago. She thinks just did not agree with her stomach. She states now she is vomiting up what looks like blood and coffee grounds. No fever or chills. [facility] Medical History Adrenal disorder Adrenal mass Arthritis Back problem Cancer Hives Osteopenia pituitarty issues Polycystic disease, ovaries Seasonal allergies Seizure Thyroid cancer thyroidectomy Tumors Vitamin deficiency Home Medications oxycodone 5 mg tablet 5 mg PO Q8H PRN PRN Pain 10/25/13 [History Last Taken 02/16/14 12:00 10 mg] dicyclomine 10 mg capsule 20 mg (2 x 10 mg) PO TIDAC ##20 11/27/18 [Rx Last Taken Unknown] famotidine 20 mg tablet 20 mg PO DAILY PRN Heartburn 11/27/18 [History Last Taken Unknown] Synthroid 125 mcg tablet (levothyroxine) 125 mcg PO DAILY #90 tabs 07/05/21 [Rx Last Taken Unknown] ascorbate calcium (vitamin C) 500 mg tablet 500 mg PO DAILY 07/05/21 [History Last Taken Unknown] cholecalciferol (vitamin D3) 25 mcg (1,000 unit) capsule 25 mcg PO DAILY 07/05 [History Last Taken Unknown] cyclobenzaprine 10 mg tablet ea PO 07/05/21 [History Last Taken Unknown] epinephrine 0.3 mg/0.3 mL injection, auto-injector 0.3 ml subcut 07/05/21 [History Last Taken Unknown] quercetin PO 07/05/21 [History Last Taken Unknown] zinc acetate 50 mg (zinc) capsule 50 mg PO DAILY 07/05/21 [History Last Taken Unknown] Allergy/AdvReac Type Severity Reaction Status Date / Time bee venom protein (honey bee) Allergy Anaphylaxis Verified 07/14/23 11:06 codeine Allergy Anaphylaxis Verified 07/14/23 11:06 escitalopram oxalate Allergy Other Verified 07/14/23 11:06 [From Lexapro] honey Allergy Anaphylaxis Verified 07/14/23 11:06 Penicillins Allergy Anaphylaxis Verified 07/14/23 11:06 Rho(D) immune globulin Allergy Hives Verified 07/14/23 11:06 [From RhoGam] venlafaxine HCl Allergy Other Verified 07/14/23 11:06 [From Effexor] hydroxyzine HCl AdvReac Other Verified 07/14/23 11:06 [From Vistaril] hydroxyzine pamoate AdvReac Other Verified 07/14/23 11:06 [From Vistaril] Family History Other Arthritis Cancer Diabetes Seizures Skin cancer Thyroid disorder Social History Smoking Status: Current every day smoker tobacco type: cigarettes ROS ROS ED Constitutional Constitutional ED: Denies chills or fever(s) Eyes Eyes: Denies change in vision or discharge from eye(s) ENT ENT ED: Denies discharge from eye(s), rhinorrhea or sore throat Cardiovascular Cardiovascular: Denies chest pain or palpitations Respiratory/Chest Respiratory/Chest: Denies cough or dyspnea Gastrointestinal Gastrointestinal: Reports abdominal pain, nausea and vomiting; Denies diarrhea Genitourinary Genitourinary ED: Denies dysuria Musculoskeletal Musculoskeletal: Denies back pain or extremity pain Integumentary Denies Abrasions or rash Neurologic Neurologic: Denies headache(s) or weakness Psychiatric Psychiatric: Denies anxiety or depression Allergic/Immunologic Allergic/Immunologic ED: Denies lip swelling or urticaria EXAM Physical Exam Const Vital Signs: 07/14/23 11:06 07/14/23 13:06 Temperature 98 F Temperature Source Temporal Pulse Rate 103 H Respiratory Rate 18 16 Blood Pressure 152/88 H Blood Pressure Mean 109 Pulse Ox 97 Oxygen Delivery Method Room Air Positive well nourished and well developed General Appearance ED: well developed HEENT Reports moist mucous membranes Eyes EOMs intact bilaterally Chest Wall inspection of chest normal and palpation of chest normal Resp normal respiratory effort and clear to auscultation bilaterally Cardio regular rate and regular rhythm GI GI Narrative: Abdomen soft with epigastric tenderness to palpation. No guarding or rebound. Hypoactive but present bowel sounds. Extremity normal to inspection Neuro oriented x3 and no sensory deficits noted Motor Exam: strength 5/5 throughout Psych mental status grossly normal Skin no rashes or lesions noted MDM MDM MDM Narrative Medical decision making narrative: Patient placed on humidifier operator. IV line initiated. EKG obtained to evaluate for cardiac arrhythmia/ischemia. Labwork obtained to evaluate for leukocytosis, anemia, and electrolyte derangement. CT scan abdomen pelvis with IV contrast will be obtained to evaluate for cholecystitis, pancreatitis, gastritis. Patient given Zofran, Protonix, and Bentyl. History & Record Review Discussion w/independent historian: Patient Lab Data Attestation: I reviewed the patient's lab results. Labs: Laboratory Results - last 24 hr 07/14/23 11:35 WBC 17.9 H RBC 5.10 Hgb 15.3 H Hct 45.5 MCV 89.2 MCH 30.0 MCHC 33.6 RDW Std Deviation 46.4 H RDW Coeff of Rose 14.3 Plt Count 300 MPV 10.3 Immature Gran % (Auto) 0.600 Neut % (Auto) 74.1 H Lymph % (Auto) 15.7 L [place] % (Auto) 9.3 Eos % (Auto) 0.0 Baso % (Auto) 0.3 Absolute Neuts (auto) 13.3 H Absolute Lymphs (auto) 2.80 Nucleated RBC % 0 Diff Path Review May foll PT 12.7 INR 1.0 APTT 30.6 Sodium 141 Potassium 3.6 Chloride 107 Carbon Dioxide 26.0 Anion Gap 8 BUN 16 Creatinine 0.80 Estim Creat Clear Calc 61.86 Est GFR (MDRD) Af Amer 94 Est GFR (MDRD) Non-Af 78 BUN/Creatinine Ratio 20.1 H Glucose 140 H Calcium 9.6 Total Bilirubin 0.70 Direct Bilirubin 0.18 AST 43 H ALT 72 H Alkaline Phosphatase 93 Total Protein 7.9 Albumin 3.8 Globulin 4.1 Lipase 32 Radiography Diagnostic Testing: Clinical Impression(s) from Imaging Studies Abdomen/Pelvis CT 07/14/23 11:51 IMPRESSION: Fatty liver, no discrete lesion No free intraperitoneal fluid, air, or suspicious adenopathy Normal appendix visualized Degenerative bony changes Electronically Signed: Joce Omalley MD at 13:20 EST , EKG Initial EKG: Attestation: I personally reviewed and interpreted this EKG as follows: Interpretation: Sinus Rhythm (Sinus 85 with no acute ischemia.) Treatment and Re-Evaluation :: CBC was elevated white count 17.9 with 74% neutrophils. Hemoglobin is concentrated at 15.3. Coags are unremarkable. Chemistry studies reveal glucose of 140. She does not have elevated BUN that would expect with an upper GI ble ed. Renal function is normal. LFTs and lipase are remarkable only for an AST of 43 and an ALT of 72. CT scan of the abdomen pelvis with IV contrast is obtained. Fatty liver is noted with no discrete lesion. No free air appreciated. Normal appendix. On repeat evaluation patient thought she was feeling improved. We gave her ice chips but this made her become nauseated again. She will be given Phenergan and I will speak with hospitalist regarding observation for intractable vomiting. Discharge Plan Triage Chief Complaint: Abd Pain ED Provider: Chelo Astorga Dx/Rx/DC Orders Clinical Impression: Gastritis, Intractable vomiting Prescriptions: No Action cyclobenzaprine 10 mg tablet PO epinephrine 0.3 mg/0.3 mL auto-injector 0.3 ml subcut zinc acetate 50 mg (zinc) capsule 50 mg PO DAILY cholecalciferol (vitamin D3) 25 mcg (1,000 unit) capsule 25 mcg PO DAILY ascorbate calcium (vitamin C) 500 mg tablet 500 mg PO DAILY quercetin PO levothyroxine [Synthroid] 125 mcg tablet 125 mcg PO DAILY Qty: 90 3RF oxycodone 5 MG tablet 5 mg PO Q8H PRN PRN (Reason: Pain) Patient Comments: Pain famotidine 20 MG tablet 20 mg PO DAILY PRN (Reason: Heartburn) dicyclomine 10 MG capsule 20 mg PO TIDAC Qty: 20 0RF Primary Care Provider: Roberto Sky Referrals: Roberto Sky MD [Primary Care Provider] - Disposition Disposition: Acute Care Hospital [facility]
--- NOTE | 2023-07-14 11:51 | CT_ITS ---
STUDY: CT ABDOMEN AND PELVIS WITH CONTRAST REASON FOR EXAM: Female, 62 years old. Diffuse abdominal pain RADIATION DOSAGE (If Supplied By Facility): CTDIvol = ( 12.18 ) mGy, DLP = ( 746.75 ) mGycm TECHNIQUE: Transaxial images were obtained from the dome of the diaphragm to the symphysis pubis without oral contrast. IV 100mL Isovue-300 was administered. Sagittal and coronal images were reconstructed. Individualized dose optimization techniques were used for this CT. COMPARISON: None. FINDINGS: The visualized lung bases are unremarkable. The visualized portions of the heart are within normal limits. There is decreased attenuation of the liver consistent with steatosis. Normal gallbladder and extrahepatic biliary system. Normal spleen. Normal pancreas. Normal bilateral adrenal glands. Normal right kidney. Normal left kidney. Normal visualized stomach. Normal small intestine. Normal colon. The appendix is visualized and appears normal. Appendix seen on coronal recon image 61 Normal abdominal aorta. Normal inferior vena cava. Normal retroperitoneum. Normal urinary bladder. Uterus is present with Essure devices noted in the fallopian tubes Normal abdominal wall. Normal osseous structures. There is a nonspecific sclerotic focus in the right iliac CT/Abdomen/Pelvis W IV Cont ONLY IMPRESSION: Fatty liver, no discrete lesion No free intraperitoneal fluid, air, or suspicious adenopathy Normal appendix visualized Degenerative bony changes Electronically Signed: Joce Omalley MD at 13:20 EST ,
[2023-07-14] MEDS: Dicyclomine 20 MG/2 ML Vial IM (12:10)
[2023-07-14] MEDS: 0.9% Normal Saline (1000mL) 1,000 ML 150 ML IV ×2 (12:10→17:41)
[2023-07-14] MEDS: Ondansetron 4 MG/2 ML Vial IV ×2 (12:10→21:02)
[2023-07-14 12:29] LABS: Absolute Neutrophil Count 13.3 X10^3/uL (2.0-7.7); Basophil# 0.06 X10^3/uL; Basophil% 0.3 % (0-1); Differential Indicated SCAN CRITERIA MET; Hematocrit 45.5 % (37-47); Hemoglobin 15.3 g/dL (12.0-15.0); Lymphocyte % 15.7 % (19-41); Mean Corp Hgb Conc 33.6 g/dL (32-36); Mean Corpuscular Volume 89.2 fL (81-99); Mean Platelet Vol. 10.3 fl (6.2-12.0); Monocyte# 1.66 X10^3/uL; Monocyte% 9.3 % (0-10); NRBC Flagged by Analyzer 0 % (0-5); Neutrophil # 13.25 X10^3/uL (2.7-7.7); Neutrophil % 74.1 % (47-70); POSITIVE DIFFERENTIAL YES; Platelet Count 300 K/mm3 (150-450); RBC Distribution Width CV 14.3 % (11.6-14.6); RBC Distribution Width SD 46.4 fl (35.1-43.9); White Blood Count 17.9 K/mm3 (4.4-11.0)
[2023-07-14] MEDS: Pantoprazole Sodium 40 MG in 0.9% Normal Saline (100mL MB+) 100 ML 330 MG IV (12:32)
[2023-07-14 12:39] LABS: Prothrombin Time (Protime)PT. 12.7 SECONDS (11.7-14.9)
[2023-07-14 12:41] LABS: Partial Thromboplast Time 30.6 Seconds (24.1-36.2)
[2023-07-14 12:48] LABS: AST(SGOT) 43 U/L (15-37); Alanine Aminotransfer ALT/SGPT 72 U/L (13-56); Albumin, Serum 3.8 g/dL (3.2-5.0); Alkaline Phosphatase 93 U/L (45-117); Anion Gap 8 (5-15); BUN 16 mg/dL (7-18); BUN/Creat Ratio 20.1 RATIO (10-20); Bilirubin, Direct 0.18 mg/dL (0.00-0.30); Calcium,Total 9.6 mg/dL (8.5-10.1); Chloride 107 mmol/L (98-107); EST Glomerular Filtration Rate 78 mL/min (>60); Est Glom Filt Rate - Afr Amer 94 mL/min (>60); Estimated Creatinine Clearance 61.86 ml/min; Globulin 4.1 g/dL (2.2-4.2); Glucose 140 mg/dL (74-106); Lipase 32 U/L (13-75); Potassium 3.6 mmol/L (3.5-5.1); Protein, Total 7.9 g/dL (6.4-8.2); Sodium Level 141 mmol/L (136-145)
[2023-07-14 13:06] VITALS: RESP 16
--- NOTE | 2023-07-14 14:35 | EGD_PTH ---
PATHOLOGY RESULTS PATIENT: MERY ALLAN LOC: MS3 U#:[id number] AGE/SX: 62/F [place] [facility] [place]: Dr. Charles Vogel MD : 1960 BED: 1 DIS: 07/16/2023 SPEC #: [id number] RECD: 07/17/23 08:13 STATUS: PILLO MICHELE #: [id number] HEATH: 07/14/23 14:[address]: Siddharth Longo DEPT: SURGICAL PATHOLOGY RECD BY: Fiona Reich ENTERED: 07/17/23 08:13 SP TYPE: EGD BIOPSY OTHR DR: MD Dr. Roberto Diaz MD Dr. Paige Pierce, MD Tissues: Esophageal mucous membrane Procedures: Special Stain Group II Surgery Specimen Level IV Alcian Blue/PAS (control) Comments: @ Ordering doctor for SUIV edited from to @ by STEPHANE at 07/17/23 1514 @ Submitting doctor edited from to @ by RGOOD at 07/17/23 1514 HEADER OPERATION: EGD PRE-OP DIAGNOSIS: Intractable vomiting TISSUE SUBMITTED: Distal esophagus biopsy MICROSCOPIC DIAGNOSIS Distal esophagus, biopsy: Fragments of gastroesophageal mucosa with extensive intestinal metaplasia (goblet cell metaplasia), consistent with Ortiz's esophagus. Chronic inflammation. Negative for dysplasia. See comment. VIVIENNE:megan 07/18/2023 COMMENT Alcian blue/PAS stain with matched control is used in the evaluation of the specimen. Immunohistochemistry ([id number]) for P53 and Ki-67 will be performed and results will be reported separately. MICROSCOPIC DESCRIPTION Slides are reviewed. GROSS DESCRIPTION Received in fixative is one container labeled with the patient's name and designated distal esophagus. The specimen consists of two irregular fragments of light pearce soft tissue that in aggregate measure 0.5 x 0.2 x 0.1 cm. The specimen is totally submitted in one cassette. / VIVIENNE:megan 07/17/2023 TC:5 CPT: 26345, 50328
[2023-07-14 15:00] VITALS: BP 148/99; PULSE 95; RESP 18; O2SAT 96
[2023-07-14] MEDS: proCHLORPERazine 10 MG/2 ML Vial 5 MG IV ×2 (15:34→23:05)
--- NOTE | 2023-07-14 16:00 | HP.PCM.HOS_ITS ---
HPI - General General Date of Admission: 07/14/23 Date of Service: 07/14/23 Chief Complaint: n/v HPI Narrative MERY ALLAN, is a 62-year-old female with history of thyroid cancer status post thyroidectomy with subsequent hypothyroid state who presented to [facility] 07/14/2023 with abdominal pain and nausea/vomiting after eating deer few days ago. Her CT abdomen pelvis was negative however patient was given ice chips in the ED and did not even tolerate that so hospitalist contacted for admission for intractable nausea and vomiting. Patient evaluated at bedside. She reports 2 days ago eating deer oneil and has had some epigastric pain that also radiates up and down and she describes as burning but main complaint is nausea and vomiting has not been unable to keep anything down for 2 days, has some right shoulder blade pain as well and has had some alternate hot and cold feelings. Denies any diarrhea or lower abdominal pain, no other complaints at this time. [facility] Medical History Adrenal disorder Adrenal mass Arthritis Back problem Cancer Hives Osteopenia pituitarty issues Polycystic disease, ovaries Seasonal allergies Seizure Thyroid cancer thyroidectomy Tumors Vitamin deficiency Home Medications famotidine 20 mg tablet 20 mg PO DAILY PRN Heartburn 11/27/18 [History Last Taken Unknown] epinephrine 0.3 mg/0.3 mL injection, auto-injector 0.3 ml subcut PRN allergic rxn 07/05/21 [History Last Taken Unknown] levothyroxine 100 mcg capsule (Tirosint) 100 mcg PO QODAY 07/14/23 [History Last Taken 07/14/23] levothyroxine 112 mcg capsule (Tirosint) 112 mcg PO QODAY 07/14/23 [History Last Taken 07/13/23] Allergy/AdvReac Type Severity Reaction Status Date / Time bee venom protein (honey bee) Allergy Anaphylaxis Verified 07/14/23 11:06 codeine Allergy Anaphylaxis Verified 07/14/23 11:06 escitalopram oxalate Allergy Other Verified 07/14/23 11:06 [From Lexapro] honey Allergy Anaphylaxis Verified 07/14/23 11:06 Penicillins Allergy Anaphylaxis Verified 07/14/23 11:06 Rho(D) immune globulin Allergy Hives Verified 07/14/23 11:06 [From RhoGam] venlafaxine HCl Allergy Other Verified 07/14/23 11:06 [From Effexor] hydroxyzine HCl AdvReac Other Verified 07/14/23 11:06 [From Vistaril] hydroxyzine pamoate AdvReac Other Verified 07/14/23 11:06 [From Vistaril] Family History Other Arthritis Cancer Diabetes Seizures Skin cancer Thyroid disorder Social History Smoking Status: Current every day smoker tobacco type: cigarettes ROS ROS Narrative General: Some alternating hot and cold HENT: Denies headache, denies stuffy nose, denies sore throat EYES: Denies changes in vision Resp: Denies cough, denies shortness of breath Cardiac: Denies chest pain GI: Pain in center of stomach that radiates up and down without lower abdominal pain, plus nausea and vomiting : Denies changes in urination Extremity: Denies swelling MSK: Denies weakness Neuro: Denies any numbness/tingling Heme: Denies any bleeding or bruising Skin: Denies rashes Psychiatric: No complaints voiced Vital Signs Vital Signs Vital Signs: 07/14/23 11:06 07/14/23 13:06 07/14/23 15:00 Temperature 98 F Temperature Source Temporal Pulse Rate 103 H 95 Respiratory Rate 18 16 18 Blood Pressure 152/88 H 148/99 H Blood Pressure Mean 109 115 Pulse Ox 97 96 Oxygen Delivery Method Room Air Room Air Weight Weight: 72.1 kg Body Mass Index (BMI) 28.1 Physical Exam Narrative General: Alert, oriented, appears to feel unwell HEENT: Atraumatic, normocephalic, no erythema in throat appreciated Eyes: Anicteric, normal conjunctiva, extraocular movements grossly intact Neck: Supple, no lymphadenopathy appreciated Respiratory: Clear to auscultation bilaterally, normal respiratory effort Cardiovascular: Regular rate and rhythm GI: Soft, no significant tenderness, no rebound, guarding, rigidity, nondistended Extremities: No edema Musculoskeletal: Moving all extremities Neuro: No overt focal neurological deficits Skin: No rashes appreciated Psych: Cooperative Results Lab / Micro Data 07/14/23 11:35 07/14/23 11:35 Labs: Laboratory Results - last 24 hr 07/14/23 11:35: WBC 17.9 H, RBC 5.10, Hgb 15.3 H, Hct 45.5, MCV 89.2, MCH 30.0, MCHC 33.6, RDW Std Deviation 46.4 H, RDW Coeff of Rose 14.3, Plt Count 300, MPV 10.3, Immature Gran % (Auto) 0.600, Neut % (Auto) 74.1 H, Lymph % (Auto) 15.7 L, [place] % (Auto) 9.3, Eos % (Auto) 0.0, Baso % (Auto) 0.3, Absolute Neuts (auto) 13.3 H, Absolute Lymphs (auto) 2.80, Nucleated RBC % 0, Diff Path Review November, PT 12.7, INR 1.0, APTT 30.6, Sodium 141, Potassium 3.6, Chloride 107, Carbon Dioxide 26.0, Anion Gap 8, BUN 16, Creatinine 0.80, Estim Creat Clear Calc 61.86, Est GFR (MDRD) Af Amer 94, Est GFR (MDRD) Non-Af 78, BUN/Creatinine Ratio 20.1 H, Glucose 140 H, Calcium 9.6, Total Bilirubin 0.70, Direct Bilirubin 0.18, AST 43 H, ALT 72 H, Alkaline Phosphatase 93, Total Protein 7.9, Albumin 3.8, Globulin 4.1, Lipase 32 Imagaing Radiology Impression Abdomen/Pelvis CT 07/14/23 11:51 IMPRESSION: Fatty liver, no discrete lesion No free intraperitoneal fluid, air, or suspicious adenopathy Normal appendix visualized Degenerative bony changes Electronically Signed: Joce Omalley MD at 13:20 EST , Assessment & Plan Assessment/Plan (1) Intractable vomiting: (2) Postsurgical hypothyroidism: PLAN: Plan # Intractable nausea and vomiting -After eating deer several days ago -N.p.o. -IV fluids -Zofran as needed with Compazine as needed as backup -Will also add PPI at this time -CT abdomen pelvis with fatty liver otherwise unremarkable -White blood cell count is elevated but so is hemoglobin, suspect hemoconcentration, no other signs of bacterial illness or need for antibiotics acutely will monitor closely #Hypothyroidism -Continue Synthroid #DVT ppx: Lovenox subcu Brigette Villa MD Time spent in the patient's overall evaluation,decision-making process, review of diagnostic data, adjustment of management, discussion with other providers, nursing nursing and ancillary staff involved in patient's care documentation, 55 minutes Charges/Coding Visit Charges Inpatient E&M: 67952 Init Hosp L2
--- OUTSIDE RECORDS SUMMARY | 2023-07-14 16:22 | XMS RPT_ITS | CCD ---
Author Name Unknown Address [address] [place] [address] Organization [facility] Care Team Providers Care Director Hematology Name Role Phone Unavailable Unavailable Unavailable Wietecha, Gamaliel Unavailable Unavailable Wietecha, Gamaliel Unavailable Unavailable Jillian, Jc W Admitting Unavailable Weldon, Jc W Attending Unavailable Sky, Howard A Primary Care Unavailable Sky, Howard A Primary Care Unavailable Ivanauskas, Saulius Admitting Unavailable Ivanauskas, Saulius Attending Unavailable AMBER MENSAH T Admitting Unavailable AMBER MENSAH Attending Unavailable AMBER MENSAH Consulting Unavailable MENSAHSOAMBER T Admitting Unavailable MENSAHAMBER T Attending Unavailable MENSAH, AMBER T Consulting Unavailable SKY, HOWARD A Primary Care Unavailable SKY, HOWARD A Consulting Unavailable Unavailable Primary Care Provider Unavailabl e Allergies Allergy Classification Reported Allergen(s) Allergy Type Date of Onset Reaction(s) Facility (1 source) Codeine; Translations: [codeine] Drug Allergy [facility] Repository (1 source) Penicillin; Translations: [penicillin] Drug Allergy [facility] Repository (1 source) Rho(D) Immune Globulin; Translations: [RhoGAM] Drug Allergy [facility] Repository (1 source) Tricyclic Antidepressants; Translations: [tricyclic antidepressants] Propensity to adverse reactions to drug (disorder) [facility] Repository Problems Active Problems Problem Classification Problem Date Documented Da te Episodic/Chronic Cancer of thyroid (1 source) Personal history of malignant neoplasm of thyroid; Translations: [HX THYROID CA] Onset: 11-04-2019 Episodic Past or Other Problems Problem Classification Problem Date Documented Da te Episodic/Chronic Unclassified (1 source) HX THYROID CA; Translations: [HX THYROID CA] Onset: 11-01-2019 Results Test Name Value Interpretation Reference Range Facil ity Encounters Encounter Date Encounter Type Care Provider Facility Start: 09-16-2020 End: 09-16-2020 Orders Only Cadence Zamora Work Phone: [facility] Start: 11-01-2019 Patient encounter procedure AMBER MENSAH Facility:[facility] Start: 02-22-2019 End: 02-23-2019 Patient encounter procedure AMBERALEX MENSAH Facility:[facility] Start: 08-16-2018 Patient encounter procedure Facility:[id number] Start: 08-16-2018 End: 08-16-2018 Emergency department patient visit Howard Gilbreto Sky Facility:[facility] Start: 12-13-2017 Ambulatory Gamaliel Stout Facility :[facility] Start: 12-13-2017 End: 12-13-2017 Ambulatory Gamaliel Nicholejose d Work Phone: [facility] Start: 10-14-2017 End: 10-14-2017 Emergency department patient visit Jc Tucker Jillian Facility:[facility] Payers Date Payer Category Payer [employer] ( [employer] others) 1960 Unknown [id number] 1960 Unknown [id number] 1960 Unknown [id number] 1960 Unknown [id number] 1960 Unknown [id number] 1957 [employer] ( [employer] others[employer] [id number] [employer] ( [employer] others) [id number] Social History Date Type Detail Facility Tobacco smoking status NHIS Unknown if ev er smoked [facility] Sex Assigned At Not on file [place] [facility] Summary Purpose Family History No Family History Records FoundNo Family History Records FoundNo Family History Records FoundNo Family History Records FoundNo Family History Records FoundNo Family History Records Found Advance Directives No Advanced Directives Records FoundNo Advanced Directives Records FoundNo Advanced Directives Records FoundNo Advanced Directives Records FoundNo Advanced Directives Records FoundNo Advanced Directives Records Found Additional Source Comments INFORMATION SOURCE (unrecogn ized section and content) DATE CREATED AUTHOR AUTHOR'S ORGANIZ ATION 02/19/2018 [facility] DATE CREATED AUTHOR AUTHOR'S ORGANIZ ATION 08/29/2018 [facility] DATE CREATED AUTHOR AUTHOR'S ORGANIZ ATION 08/29/2018 [facility] DATE CREATED AUTHOR AUTHOR'S ORGANIZ ATION 11/04/2019 [facility] DATE CREATED AUTHOR AUTHOR'S ORGANIZ ATION 02/12/2021 [facility] FOR RECORDS PERTAINING TO PATIENTS WHO ARE OR HAVE BEEN ENROLLED IN A CHEMICAL DEPENDENCY/SUBSTANCEABUSE PROGRAM, SOME INFORMATION MAY BE OMITTED. This clinical summary was aggregated from multiple sources. Caution should be exercised in using it in the provision of clinical care. This summary normalizes information from multiple sources, and as a consequence, information in this document may materially change the coding, format and clinical context of patient data. In addition, data may be omitted in some cases. CLINICAL DECISIONS SHOULD BE BASED ON THE PRIMARY CLINICAL RECORDS. [facility] [employer] [facility]. provides no warranty or guarantee of the accuracy or completeness of information in this document.
--- OUTSIDE RECORDS SUMMARY | 2023-07-14 16:33 | XMS RPT_ITS | CCD ---
Author Name Unknown Address [address] [place] [address] Organization [facility] Care Team Providers Care Grain Trader Name Role Phone Unavailable Unavailable Unavailable Wietecha, Gamaliel Unavailable Unavailable Wietecha, Gamaliel Unavailable Unavailable Jillian, Jc W Admitting Unavailable [place], Jc W Attending Unavailable Sky, Howard A Primary Care Unavailable Sky, Howard A Primary Care Unavailable Ivanauskas, Saulius Admitting Unavailable Ivanauskas, Saulius Attending Unavailable AMBER MENSAH T Admitting Unavailable AMBER MENSAH Attending Unavailable AMBER MENSAH Consulting Unavailable MENASHSOAMBER T Admitting Unavailable MENSAHAMBER T Attending Unavailable MENSAH, AMBER T Consulting Unavailable SKY, HOWARD A Primary Care Unavailable SKY, HOWARD A Consulting Unavailable Unavailable Primary Care Provider Unavailabl e Allergies Allergy Classification Reported Allergen(s) Allergy Type Date of Onset Reaction(s) Facility (1 source) Codeine; Translations: [codeine] Drug Allergy [facility] Repository (1 source) Penicillin; Translations: [penicillin] Drug Allergy [facility] Repository (1 source) Rho(D) Immune Globulin; Translations: [RhoGAM] Drug Allergy [facility] Repository (1 source) Tricyclic Antidepressants; Translations: [tricyclic antidepressants] Propensity to adverse reactions to drug (disorder) [facility] Repository Problems Active Problems Problem Classification Problem [...] 09-16-2020 Orders Only Cadence Zamora Work Phone: [facility] Start: 11-01-2019 Patient encounter procedure AMBER MENSAH Facility:[facility] Start: 02-22-2019 End: 02-23-2019 Patient encounter procedure AMBERALEX MENSAH Facility:[facility] Start: 08-16-2018 Patient encounter procedure Facility:[id number] Start: 08-16-2018 End: 08-16-2018 Emergency department patient visit Howard Gilberto Sky Facility:[facility] Start: 12-13-2017 Ambulatory Gamaliel Stout Facility :[place] Start: 12-13-2017 End: 12-13-2017 Ambulatory Gamaliel Nicholejose d Work Phone: [facility] Start: 10-14-2017 End: 10-14-2017 Emergency department patient visit Jc Tucker Jillian Facility:[facility] Payers Date Payer Category Payer [employer] ( [employer] others) 1960 Unknown [id number] 1960 Unknown [id number] 1960 Unknown [id number] 1960 Unknown [id number] 1960 Unknown [id number] 1957 [employer] others[employer] [id number] [employer] others) [id number] Social History Date Type Detail Facility Tobacco smoking status NHIS Unknown if ev er smoked [facility] [place] Sex Assigned At Not on file [place] [...] DATE CREATED AUTHOR AUTHOR'S ORGANIZ ATION 02/19/2018 [facility] DATE CREATED AUTHOR AUTHOR'S ORGANIZ ATION 08/29/2018 [facility] DATE CREATED AUTHOR AUTHOR'S ORGANIZ ATION 08/29/2018 [facility] DATE CREATED AUTHOR AUTHOR'S ORGANIZ ATION 11/04/2019 [facility] [place] [facility] DATE CREATED AUTHOR AUTHOR'S ORGANIZ ATION 02/12/2021 [facility] FOR RECORDS PERTAINING TO PATIENTS WHO [...] BE BASED ON THE PRIMARY CLINICAL RECORDS. [facility]. provides no warranty or guarantee of the accuracy or completeness of information in this document.
[2023-07-14 16:59] VITALS: BMI 28.1
[2023-07-14 17:30] VITALS: BP 145/85; PULSE 72; RESP 16; TEMP 37.2; O2SAT 97
[2023-07-14 21:05] VITALS: BP 149/69; PULSE 91; RESP 16; TEMP 37.2; O2SAT 95
--- NOTE | 2023-07-14 23:00 | CON.PCM.GI_ITS ---
HPI Consult Data Date of Consult: 07/14/23 HPI Narrative Reason for Consultation: Abdominal pain with nausea vomiting HPI Narrative: MERY ALLAN, is a 62 F who presents with worsening abdominal pain followed by nausea vomiting and hematemesis. She has a history of thyroid cancer status post thyroidectomy with subsequent hypothyroid state who presented to [facility] 07/14/2023 with abdominal pain and nausea/vomiting after eating deer few days ago. Her CT abdomen pelvis was negative however patient was given ice chips in the ED and did not even tolerate that so hospitalist contacted for admission for intractable nausea and vomiting. Patient evaluated at bedside. She reports 2 days ago eating deer pawela and has had some epigastric pain that also radiates up and down and she describes as burning but main complaint is nausea and vomiting has not been unable to keep anything down for 2 days, has some right shoulder blade pain as well and has had some alternate hot and cold feelings. Denies any diarrhea or lower abdominal pain, no other complaints at this time. Her liver enzymes are slightly elevated. She denies any alcohol. There was steatosis seen on imaging. [facility] Medical History Adrenal disorder Adrenal mass Arthritis Back problem Cancer Hives Osteopenia pituitarty issues Polycystic disease, ovaries Seasonal allergies Seizure Thyroid cancer thyroidectomy Tumors Vitamin deficiency Home Medications famotidine 20 mg tablet 20 mg PO DAILY PRN Heartburn 11/27/18 [History Last Taken Unknown] epinephrine 0.3 mg/0.3 mL injection, auto-injector 0.3 ml subcut PRN allergic rxn 07/05/21 [History Last Taken Unknown] levothyroxine 100 mcg capsule (Tirosint) 100 mcg PO QODAY 07/14/23 [History Last Taken 07/14/23] levothyroxine 112 mcg capsule (Tirosint) 112 mcg PO QODAY 07/14/23 [History Last Taken 07/13/23] Allergy/AdvReac Type Severity Reaction Status Date / Time bee venom protein (honey bee) Allergy Anaphylaxis Verified 07/14/23 11:06 codeine Allergy Anaphylaxis Verified 07/14/23 11:06 escitalopram oxalate Allergy Other Verified 07/14/23 11:06 [From Lexapro] honey Allergy Anaphylaxis Verified 07/14/23 11:06 Penicillins Allergy Anaphylaxis Verified 07/14/23 11:06 Rho(D) immune globulin Allergy Hives Verified 07/14/23 11:06 [From RhoGam] venlafaxine HCl Allergy Other Verified 07/14/23 11:06 [From Effexor] hydroxyzine HCl AdvReac Other Verified 07/14/23 11:06 [From Vistaril] hydroxyzine pamoate AdvReac Other Verified 07/14/23 11:06 [From Vistaril] Family History Other Arthritis Cancer Diabetes Seizures Skin cancer Thyroid disorder Social History Smoking Status: Current every day smoker tobacco type: cigarettes ROS ROS Narrative General: Some alternating hot and cold HENT: Denies headache, denies stuffy nose, denies sore throat EYES: Denies changes in vision Resp: Denies cough, denies shortness of breath Cardiac: Denies chest pain GI: Pain in center of stomach that radiates up and down without lower abdominal pain, plus nausea and vomiting : Denies changes in urination Extremity: Denies swelling MSK: Denies weakness Neuro: Denies any numbness/tingling Heme: Denies any bleeding or bruising Skin: Denies rashes Psychiatric: No complaints voiced Physical Exam Narrative General: Alert, oriented, appears to feel unwell HEENT: Atraumatic, normocephalic, no erythema in throat appreciated Eyes: Anicteric, normal conjunctiva, extraocular movements grossly intact Neck: Supple, no lymphadenopathy appreciated Respiratory: Clear to auscultation bilaterally, normal respiratory effort Cardiovascular: Regular rate and rhythm GI: Soft, no significant tenderness, no rebound, guarding, rigidity, nondistended Extremities: No edema Musculoskeletal: Moving all extremities Neuro: No overt focal neurological deficits Skin: No rashes appreciated Psych: Cooperative Lab / Micro Data 07/15/23 06:18 07/15/23 06:18 Labs: Laboratory Results - last 24 hr 07/14/23 11:35: WBC 17.9 H, RBC 5.10, Hgb 15.3 H, Hct 45.5, MCV 89.2, MCH 30.0, MCHC 33.6, RDW Std Deviation 46.4 H, RDW Coeff of Rose 14.3, Plt Count 300, MPV 10.3, Immature Gran % (Auto) 0.600, Neut % (Auto) 74.1 H, Lymph % (Auto) 15.7 L, [place] % (Auto) 9.3, Eos % (Auto) 0.0, Baso % (Auto) 0.3, Absolute Neuts (auto) 13.3 H, Absolute Lymphs (auto) 2.80, Nucleated RBC % 0, Diff Path Review November, PT 12.7, INR 1.0, APTT 30.6, Sodium 141, Potassium 3.6, Chloride 107, Carbon Dioxide 26.0, Anion Gap 8, BUN 16, Creatinine 0.80, Estim Creat Clear Calc 61.86, Est GFR (MDRD) Af Amer 94, Est GFR (MDRD) Non-Af 78, BUN/Creatinine Ratio 20.1 H, Glucose 140 H, Calcium 9.6, Total Bilirubin 0.70, Direct Bilirubin 0.18, AST 43 H, ALT 72 H, Alkaline Phosphatase 93, Total Protein 7.9, Albumin 3.8, Globulin 4.1, Lipase 32 07/15/23 06:18: WBC 13.7 H, RBC 4.76, Hgb 14.0, Hct 43.8, MCV 92.0, MCH 29.4, MCHC 32.0, RDW Std Deviation 47.8 H, RDW Coeff of Rose 14.1, Plt Count 262, MPV 10.2, Immature Gran % (Auto) 0.300, Neut % (Auto) 55.5, Lymph % (Auto) 35.4, [place] % (Auto) 7.9, Eos % (Auto) 0.2, Baso % (Auto) 0.7, Absolute Neuts (auto) 7.6, Absolute Lymphs (auto) 4.86 H, Nucleated RBC % 0, Sodium 145, Potassium 3.5, Chloride 116 H, Carbon Dioxide 26.0, Anion Gap 3 L, BUN 20 H, Creatinine 0.81, Estim Creat Clear Calc 61.10, Est GFR (MDRD) Af Amer 92, Est GFR (MDRD) Non-Af 76, BUN/Creatinine Ratio 24.6 H, Glucose 96, Calcium 8.8, Total Bilirubin 0.80, AST 46 H, ALT 70 H, Alkaline Phosphatase 77, Total Protein 6.3 L, Albumin 3.0 L, Globulin 3.3, Albumin/Globulin Ratio 0.9 Imagaing Radiology Impression Abdomen/Pelvis CT 07/14/23 11:51 IMPRESSION: Fatty liver, no discrete lesion No free intraperitoneal fluid, air, or suspicious adenopathy Normal appendix visualized Degenerative bony changes Electronically Signed: Joce Omalley MD at 13:20 EST Reading Location ID and State: [facility] / [place] , Service support , Assessment & Plan Assessment/Plan (1) Intractable vomiting: (2) Postsurgical hypothyroidism: PLAN: Plan 62-year-old with past medical history of adrenal adenoma status post partial adrenalectomy, thyroid nodule status post thyroidectomy who comes in with worsening abdominal pain followed by Intractable nausea and vomiting with hematemesis. She likely has gastritis with erosive esophagitis and a Yvrose- Cook tear. -After eating deer several days ago -N.p.o. -IV fluids -Zofran as needed with Compazine as needed as backup -Will also add PPI at this time -CT abdomen pelvis with fatty liver otherwise unremarkable -White blood cell count is elevated but so is hemoglobin, suspect hemoc oncentration, no other signs of bacterial illness or need for antibiotics acutely will monitor closely -EGD Charges/Coding Visit Charges Inpatient E&M: 98081 Init Hosp L3
[2023-07-15] VITALS (9 sets, daily range): BP systolic 109–157; BP diastolic 65–79; PULSE 60–78; RESP 16–18; TEMP 36.1–37.1; O2SAT 93–97
[2023-07-15] MEDS: 0.9% Normal Saline (1000mL) 1,000 ML 150 ML IV ×4 (00:34→21:52)
[2023-07-15] MEDS: proCHLORPERazine 10 MG/2 ML Vial 5 MG IV (06:11)
[2023-07-15 06:53] LABS: Absolute Lymphocyte Count 4.86 X10^3/uL (0.83-4.51); Absolute Neutrophil Count 7.6 X10^3/uL (2.0-7.7); Basophil# 0.09 X10^3/uL; Basophil% 0.7 % (0-1); Eosinophil# 0.03 X10^3/uL; Eosinophils% 0.2 % (0-5); Hematocrit 43.8 % (37-47); Lymphocyte # 4.86 X10^3/ul (0.83-4.51); Lymphocyte % 35.4 % (19-41); Mean Corpuscular Hgb 29.4 pg (27.0-32.0); Mean Platelet Vol. 10.2 fl (6.2-12.0); Monocyte# 1.09 X10^3/uL; Monocyte% 7.9 % (0-10); NRBC Flagged by Analyzer 0 % (0-5); Neutrophil # 7.63 X10^3/uL (2.7-7.7); Neutrophil % 55.5 % (47-70); Platelet Count 262 K/mm3 (150-450); RBC Distribution Width CV 14.1 % (11.6-14.6); RBC Distribution Width SD 47.8 fl (35.1-43.9); Red Blood Count 4.76 M/mm3 (4.2-5.4); White Blood Count 13.7 K/mm3 (4.4-11.0)
[2023-07-15 07:22] LABS: ALB/GLOB Ratio 0.9 RATIO (0.9-2.4); AST(SGOT) 46 U/L (15-37); Alanine Aminotransfer ALT/SGPT 70 U/L (13-56); Alkaline Phosphatase 77 U/L (45-117); Anion Gap 3 (5-15); BUN 20 mg/dL (7-18); BUN/Creat Ratio 24.6 RATIO (10-20); Calcium,Total 8.8 mg/dL (8.5-10.1); Chloride 116 mmol/L (98-107); Creatinine, Serum 0.81 mg/dL (0.55-1.02); EST Glomerular Filtration Rate 76 mL/min (>60); Est Glom Filt Rate - Afr Amer 92 mL/min (>60); Globulin 3.3 g/dL (2.2-4.2); Glucose 96 mg/dL (74-106); Potassium 3.5 mmol/L (3.5-5.1); Protein, Total 6.3 g/dL (6.4-8.2); Sodium Level 145 mmol/L (136-145)
--- NOTE | 2023-07-15 07:36 | PN.HOSP_ITS ---
Reason for Visit Reason for Visit: Diagnoses Postprocedural hypothyroidism (07/14/23) Vomiting, unspecified (07/14/23) Objective Data Objective Data Vital Signs: Vital Signs Temp Pulse Resp BP Pulse Ox O2 Del Method 98.1 F 69 18 109/73 94 Room Air 07/15/23 05:13 07/15/23 05:13 07/15/23 05:13 07/15/23 05:13 07/15/23 05:13 07/15/23 05:13 Oxygen Delivery Method Room Air Weight: 72.1 kg Body Mass Index (BMI) 28.1 Intake & Output: Intake and Output for Last 24 Hours 07/13/23 07/14/23 07/15/23 23:59 23:59 23:59 Intake Total 937.5 / 937.5 1710 / 1710 Balance 937.5 / 937.5 1710 / 1710 Lab / Micro Data 07/15/23 06:18 07/15/23 06:18 Labs: Laboratory Results - last 24 hr 07/14/23 11:35: WBC 17.9 H, RBC 5.10, Hgb 15.3 H, Hct 45.5, MCV 89.2, MCH 30.0, MCHC 33.6, RDW Std Deviation 46.4 H, RDW Coeff of Rose 14.3, Plt Count 300, MPV 10.3, Immature Gran % (Auto) 0.600, Neut % (Auto) 74.1 H, Lymph % (Auto) 15.7 L, Centre % (Auto) 9.3, Eos % (Auto) 0.0, Baso % (Auto) 0.3, Absolute Neuts (auto) 13.3 H, Absolute Lymphs (auto) 2.80, Nucleated RBC % 0, Diff Path Review November, PT 12.7, INR 1.0, APTT 30.6, Sodium 141, Potassium 3.6, Chloride 107, Carbon Dioxide 26.0, Anion Gap 8, BUN 16, Creatinine 0.80, Estim Creat Clear Calc 61.86, Est GFR (MDRD) Af Amer 94, Est GFR (MDRD) Non-Af 78, BUN/Creatinine Ratio 20.1 H, Glucose 140 H, Calcium 9.6, Total Bilirubin 0.70, Direct Bilirubin 0.18, AST 43 H, ALT 72 H, Alkaline Phosphatase 93, Total Protein 7.9, Albumin 3.8, Globulin 4.1, Lipase 32 07/15/23 06:18: WBC 13.7 H, RBC 4.76, Hgb 14.0, Hct 43.8, MCV 92.0, MCH 29.4, MC HC 32.0, RDW Std Deviation 47.8 H, RDW Coeff of Rose 14.1, Plt Count 262, MPV 10.2, Immature Gran % (Auto) 0.300, Neut % (Auto) 55.5, Lymph % (Auto) 35.4, Centre % (Auto) 7.9, Eos % (Auto) 0.2, Baso % (Auto) 0.7, Absolute Neuts (auto) 7.6, Absolute Lymphs (auto) 4.86 H, Nucleated RBC % 0, Sodium 145, Potassium 3.5, Chloride 116 H, Carbon Dioxide 26.0, Anion Gap 3 L, BUN 20 H, Creatinine 0.81, Estim Creat Clear Calc 61.10, Est GFR (MDRD) Af Amer 92, Est GFR (MDRD) Non-Af 76, BUN/Creatinine Ratio 24.6 H, Glucose 96, Calcium 8.8, Total Bilirubin 0.80, AST 46 H, ALT 70 H, Alkaline Phosphatase 77, Total Protein 6.3 L, Albumin 3.0 L, Globulin 3.3, Albumin/Globulin Ratio 0.9 Radiography Diagnostic Testing: Radiology Impression Abdomen/Pelvis CT 07/14/23 11:51 IMPRESSION: Fatty liver, no discrete lesion No free intraperitoneal fluid, air, or suspicious adenopathy Normal appendix visualized Degenerative bony changes Electronically Signed: Joce Omalley MD at 13:20 EST Reading Location ID and State: [facility] , Service support , Physical Exam Narrative General: Alert, oriented, appears to feel unwell HEENT: Atraumatic, normocephalic, no erythema in throat appreciated Eyes: Anicteric, normal conjunctiva, extraocular movements grossly intact Neck: Supple, no lymphadenopathy appreciated Respiratory: Clear to auscultation bilaterally, normal respiratory effort Cardiovascular: Regular rate and rhythm GI: Soft, no significant tenderness, no rebound, guarding, rigidity, nondistended Extremities: No edema Musculoskeletal: Moving all extremities Neuro: No overt focal neurological deficits Skin: No rashes appreciated Psych: Cooperative Assessment & Plan Assessment/Plan (1) Intractable vomiting: (2) Postsurgical hypothyroidism: PLAN: Plan Patient is a 62-year-old lady presented with intractable nausea vomiting 1. Intractable nausea vomiting ? Apparently after eating some deer meat. Do suspect gastritis. Patient has been admitted to regular nursing floor where patient is currently being managed symptomatically 2. Nonalcoholic fatty liver disease ?. Patient was noted to have elevated transaminases. Ordered right upper quadrant ultrasound and consultation placed to GI 3. Hypothyroidism - Patient is on levothyroxine home dose continued 4. Tobacco dependence - Counseled on cessation, offered nicotine patch for tobacco cravings 5. DVT prophylaxis ? SC Lovenox Time spent in the patient's overall evaluation,decision-making process, review of diagnostic data, adjustment of management, discussion with other providers, nursing nursing and ancillary staff involved in patient's care documentation, 50 minutes Charges/Coding Visit Charges Inpatient E&M: 16989 Subs Hosp L3
[2023-07-15] MEDS: Ondansetron 4 MG/2 ML Vial IV (08:24)
[2023-07-15] MEDS: LORazepam 2 MG/ML Syringe 0.5 MG IV (09:57)
[2023-07-15] MEDS: Enoxaparin 40 MG/0.4 ML Syringe SC (09:58)
[2023-07-15] MEDS: Pantoprazole Sodium 40 MG Tablet PO (09:58)
--- NOTE | 2023-07-15 15:14 | OP.CCLET_ITS ---
07/15/2023 Roberto Sky [address] [place] [address] Re : Upper GI endoscopy procedure for Tamera Pleitez Dear Dr. Sky This procedure was performed on Saturday, July 15, 2023. My impressions and recommendations are as follows: Impressions : - LA Grade D acute esophagitis with bleeding. Biopsied. Treated with a heater probe. - Normal stomach. - Erythematous duodenopathy. Recommendations : - Return patient to [facility] [place] for [facility] care. - Resume previous diet. - Continue present medications. - Await pathology results. My findings are described in the full procedure note, which is enclosed. If I can be of further assistance, please feel free to contact me at . Sincerely, Siddharth Longo, 07/15/2023 3:13:46 PM This report has been signed electronically.
--- NOTE | 2023-07-15 15:14 | OP.EGD_ITS ---
Patient Name: Tamera Pleitez Procedure Date: 07/15/2023 2:50 PM Date of : 1960 Age: 62 Procedure: Upper GI endoscopy Indications: Hematemesis Providers: Siddharth Longo DO Medicines: Monitored Anesthesia Care Patient Profile: This is a 62 year old female. Refer to note in patient chart for documentation of history and physical. Patient has symptoms of acute vomiting. Complications: No immediate complications. Procedure: Pre-Anesthesia Assessment: - Prior to the procedure, a History and Physical was performed, and patient medications and allergies were reviewed. The patient is competent. The risks and benefits of the procedure and the sedation options and risks were discussed with the patient. All questions were answered and informed consent was obtained. Patient identification and proposed procedure were verified by the physician in the pre-procedure area. Mental Status Examination: alert and oriented. Airway Examination: normal oropharyngeal airway and neck mobility. Respiratory Examination: clear to auscultation. CV Examination: normal. Prophylactic Antibiotics: The patient does not require prophylactic antibiotics. Prior Anticoagulants: The patient has taken no anticoagulant or antiplatelet agents. ASA Grade Assessment: II - A patient with mild systemic disease. After reviewing the risks and benefits, the patient was deemed in satisfactory condition to undergo the procedure. The anesthesia plan was to use monitored anesthesia care (MAC). Immediately prior to administration of medications, the patient was re-assessed for adequacy to receive sedatives. The heart rate, respiratory rate, oxygen saturations, blood pressure, adequacy of pulmonary ventilation, and response to care were monitored throughout the procedure. The physical status of the patient was re-assessed after the procedure. After obtaining informed consent, the endoscope was passed under direct vision. Throughout the procedure, the patient's blood pressure, pulse, and oxygen saturations were monitored continuously. The Endoscope was introduced through the mouth, and advanced to the second part of duodenum. The upper GI endoscopy was accomplished without difficulty. The patient tolerated the procedure well. Scope In: 2:57:45 PM Scope Out: 3:06:44 PM Total Procedure Duration Time 0 hours 8 minutes 59 seconds Findings: LA Grade D (one or more mucosal breaks involving at least 75% of esophageal circumference) esophagitis with bleeding was found 36 to 40 cm from the incisors. Biopsies were taken with a cold forceps for histology. Coagulation for hemostasis using heater probe was successful. Estimated blood loss was minimal. The entire examined stomach was normal. Localized moderately erythematous mucosa without active bleeding and with no stigmata of bleeding was found in the duodenal bulb and in the first portion of the duodenum. Impression: - LA Grade D acute esophagitis with bleeding. Biopsied. Treated with a heater probe. - Normal stomach. - Erythematous duodenopathy. Recommendation: - Return patient to [place] for ongoing care. - Resume previous diet. - Continue present medications. - Await pathology results. Procedure Code(s): --- Professional --- 89192, 59, Esophagogastroduodenoscopy, flexible, transoral; with control of bleeding, any method 90692, Esophagogastroduodenoscopy, flexible, transoral; with biopsy, single or multiple CPT copyright 2021 [employer]. All rights reserved. The codes documented in this report are preliminary and upon gas blender review may be revised to meet current compliance requirements. Siddharth Longo DO 07/15/2023 3:13:46 PM This report has been signed electronically. Number of Addenda: 0 Note Initiated On: 07/15/2023 2:50 PM
[2023-07-15] MEDS: Acetaminophen 325 MG Tablet 650 MG PO (16:24)
[2023-07-15] MEDS: Mag Hydrox/Al Hydrox/Simeth 30 ML UDC 15 ML PO (17:25)
[2023-07-16 01:49] VITALS: BP 115/54; PULSE 57; RESP 16; TEMP 36.7; O2SAT 96
[2023-07-16] MEDS: 0.9% Normal Saline (1000mL) 1,000 ML 150 ML IV (05:27)
[2023-07-16 05:38] VITALS: BP 102/58; PULSE 52; RESP 16; TEMP 36.3; O2SAT 96
--- NOTE | 2023-07-16 07:15 | PN.HOSP_ITS ---
Reason for Visit Reason for Visit: Diagnoses Postprocedural hypothyroidism (07/14/23) Vomiting, unspecified (07/14/23) Subjective Subjective Patient underwent EGD the day prior by Friend was found to have esophagitis with bleeding. Objective Data Objective Data Vital Signs: Vital Signs Temp Pulse Resp BP Pulse Ox O2 Del Method O2 Flow Rate 97.3 F L 52 L 16 102/58 L 96 Room Air 2 07/16/23 05:38 07/16/23 05:38 07/16/23 05:38 07/16/23 05:38 07/16/23 05:38 07/16/23 05:38 07/15/23 15:13 Oxygen Flow Rate (L/min) 2 Oxygen Delivery Method Room Air Weight: 72.1 kg Body Mass Index (BMI) 28.1 Intake & Output: Intake and Output for Last 24 Hours 07/14/23 07/15/23 07/16/23 23:59 23:59 23:59 Intake Total 937.5 / 937.5 4035 / 4435 1580 / 1580 Balance 937.5 / 937.5 4035 / 4435 1580 / 1580 Lab / Micro Data 07/16/23 06:48 07/16/23 06:48 Labs: Laboratory Results - last 24 hr 07/15/23 06:18: Sodium 145, Potassium 3.5, Chloride 116 H, Carbon Dioxide 26.0, Anion Gap 3 L, BUN 20 H, Creatinine 0.81, Estim Creat Clear Calc 61.10, Est GFR (MDRD) Af Amer 92, Est GFR (MDRD) Non-Af 76, BUN/Creatinine Ratio 24.6 H, Glucose 96, Calcium 8.8, Total Bilirubin 0.80, AST 46 H, ALT 70 H, Alkaline Phosphatase 77, Total Protein 6.3 L, Albumin 3.0 L, Globulin 3.3, [place] min/Globulin Ratio 0.9 Physical Exam Narrative General: Alert, oriented, appears to feel unwell HEENT: Atraumatic, normocephalic, no erythema in throat appreciated Eyes: Anicteric, normal conjunctiva, extraocular movements grossly intact Neck: Supple, no lymphadenopathy appreciated Respiratory: Clear to auscultation bilaterally, normal respiratory effort Cardiovascular: Regular rate and rhythm GI: Soft, no significant tenderness, no rebound, guarding, rigidity, nondistended Extremities: No edema Musculoskeletal: Moving all extremities Neuro: No overt focal neurological deficits Skin: No rashes appreciated Psych: Cooperative Assessment & Plan Assessment/Plan (1) Intractable vomiting: (2) Postsurgical hypothyroidism: PLAN: Plan Patient is a 62-year-old lady presented with intractable nausea vomiting 1. Intractable nausea vomiting secondary to esophagitis ? Apparently after eating some deer meat. Patient has been admitted to regular nursing floor where patient is currently being managed symptomatically ? 07/16/2023; patient underwent EGD by Dr. Longo on 07/15/2023 impressions and recommendations are as Impressions : - LA Grade D acute esophagitis with bleeding. Biopsied. Treated with a heater probe. - Normal stomach. - Erythematous duodenopathy. Recommendations : - Return patient to [place] for ongoing care. - Resume previous diet. - Continue present medications. - Await pathology results. 2. Nonalcoholic fatty liver disease ?. Patient was noted to have elevated transaminases. Ordered right upper quadrant ultrasound and consultation placed to GI ? 07/16/2023 patient to follow-up with GI as outpatient 3. Hypothyroidism - Patient is on levothyroxine home dose continued 4. Tobacco dependence - Counseled on cessation, offered nicotine patch for tobacco cravings 5. DVT prophylaxis ? SC Lovenox Time spent in the patient's overall evaluation,decision-making process, review of diagnostic data, adjustment of management, discussion with other providers, nursing nursing and ancillary staff involved in patient's care documentation, 35 minutes Charges/Coding Visit Charges Inpatient E&M: 81905 Subs Hosp L2
[2023-07-16 07:37] LABS: Absolute Lymphocyte Count 3.81 X10^3/uL (0.83-4.51); Absolute Neutrophil Count 6.7 X10^3/uL (2.0-7.7); Basophil# 0.05 X10^3/uL; Basophil% 0.4 % (0-1); Eosinophil# 0.07 X10^3/uL; Eosinophils% 0.6 % (0-5); Hematocrit 37.7 % (37-47); Hemoglobin 12.3 g/dL (12.0-15.0); Lymphocyte # 3.81 X10^3/ul (0.83-4.51); Lymphocyte % 32.6 % (19-41); Mean Corp Hgb Conc 32.6 g/dL (32-36); Mean Corpuscular Hgb 29.5 pg (27.0-32.0); Mean Corpuscular Volume 90.4 fL (81-99); Mean Platelet Vol. 10.6 fl (6.2-12.0); Monocyte# 1.03 X10^3/uL; Monocyte% 8.8 % (0-10); NRBC Flagged by Analyzer 0 % (0-5); Neutrophil # 6.71 X10^3/uL (2.7-7.7); Neutrophil % 57.3 % (47-70); Platelet Count 212 K/mm3 (150-450); RBC Distribution Width CV 13.5 % (11.6-14.6); RBC Distribution Width SD 44.2 fl (35.1-43.9); Red Blood Count 4.17 M/mm3 (4.2-5.4); White Blood Count 11.7 K/mm3 (4.4-11.0)
[2023-07-16 07:43] LABS: AST(SGOT) 41 U/L (15-37); Alanine Aminotransfer ALT/SGPT 62 U/L (13-56); Albumin, Serum 2.6 g/dL (3.2-5.0); Alkaline Phosphatase 65 U/L (45-117); Anion Gap 3 (5-15); BUN 14 mg/dL (7-18); BUN/Creat Ratio 22.3 RATIO (10-20); Bilirubin, Direct 0.18 mg/dL (0.00-0.30); Calcium,Total 7.9 mg/dL (8.5-10.1); Chloride 114 mmol/L (98-107); Creatinine, Serum 0.63 mg/dL (0.55-1.02); EST Glomerular Filtration Rate 103 mL/min (>60); Est Glom Filt Rate - Afr Amer 124 mL/min (>60); Estimated Creatinine Clearance 78.55 ml/min; Glucose 94 mg/dL (74-106); Magnesium 2.4 mg/dL (1.6-2.6); Phosphorus 2.5 mg/dL (2.5-4.9); Potassium 3.3 mmol/L (3.5-5.1); Protein, Total 5.6 g/dL (6.4-8.2); Sodium Level 140 mmol/L (136-145)
[2023-07-16 08:42] VITALS: BP 146/63; PULSE 54; RESP 16; TEMP 37.1; O2SAT 96
[2023-07-16 09:07] LABS: HEPATITIS B SURFACE AG Negative (Negative); Hep C Antibodies Non Reactive (Non Reactive); Hepatitis A IgM Antibody Negative (Negative); Hepatitis B Core AB IgM Negative (Negative)
[2023-07-16] MEDS: Pantoprazole Sodium 40 MG Tablet PO (09:21)
[2023-07-16] MEDS: Enoxaparin 40 MG/0.4 ML Syringe SC (09:21)
[2023-07-16] MEDS: Potassium Chloride Oral Tablet 20 MEQ 40 MEQ PO (09:22)
--- NOTE | 2023-07-16 09:30 | DS.PCM_ITS ---
Providers Date of Admission: 07/14/23 Date of Discharge: 07/16/23 Primary Care Physician: Dr. Roberto Sky MD Consultations 07/15/23 09:13 Consult: Gastroenterology Routine Consulting Provider: [facility] Reason for Consult: Abnormal LFTs EMERGENT Consult: No MD Notified: Yes Date Notified: 07/15/23 Time Notified: 09:13 Method of Notification: Text Reason For Visit: INTRACTABLE VOMITING Diagnosis Discharge Diagnosis (1) Intractable vomiting: Status: Acute Code(s): R11.10 - Vomiting, unspecified (2) Postsurgical hypothyroidism: Status: Chronic Code(s): E89.0 - Postprocedural hypothyroidism Plan Patient is a 62-year-old lady presented with intractable nausea vomiting 1. Intractable nausea vomiting secondary to esophagitis ? Apparently after eating some deer meat. Patient has been admitted to regular nursing floor where patient is currently being managed symptomatically ? 07/16/2023; patient underwent EGD by Dr. Longo on 07/15/2023 impressions and recommendations are as Impressions : - LA Grade D acute esophagitis with bleeding. Biopsied. Treated with a heater probe. - Normal stomach. - Erythematous duodenopathy. Recommendations : - Return patient to [facility] for ongoing care. - Resume previous diet. - Continue present medications. - Await pathology results. 2. Nonalcoholic fatty liver disease ?. Patient was noted to have elevated transaminases. Ordered right upper [place] drant ultrasound and consultation placed to GI ? 07/16/2023 patient to follow-up with GI as outpatient 3. Hypothyroidism - Patient is on levothyroxine home dose continued 4. Tobacco dependence - Counseled on cessation, offered nicotine patch for tobacco cravings 5. DVT prophylaxis ? SC Lovenox Time spent in the patient's overall evaluation,decision-making process, review of diagnostic data, adjustment of management, discussion with other providers, nursing nursing and ancillary staff involved in patient's care documentation, 35 minutes Medications at Discharge Home Medications famotidine 20 mg tablet 20 mg PO DAILY PRN Heartburn 11/27/18 epinephrine 0.3 mg/0.3 mL injection, auto-injector 0.3 ml subcut PRN allergic rxn 07/05/21 levothyroxine 100 mcg capsule (Tirosint) 100 mcg PO QODAY 07/14/23 levothyroxine 112 mcg capsule (Tirosint) 112 mcg PO QODAY 07/14/23 pantoprazole 40 mg tablet,delayed release 40 mg PO DAILY 60 days #60 tabs 07/16/23 Hospital Course Summary of Care Provided Minutes Spent on Discharge: 35 Physical Exam Narrative GENERAL: cooperative HEENT: Atraumatic; normocephalic EYES; Anicteric, Normal Conjunctiva NECK; supple, normal thyroid, RESPIRATORY: Diminished to auscultation CARDIOVASCULAR: Regular S1 S2, GI: soft, normoactive bowel sounds, : No Renal angle tenderness; EXTREMITIES: No edema, no clubbing, MUSCULOSKELETAL: no muscle wasting NEURO: Awake; no lateralizing signs. SKIN: No Rash PSYCH; Flat affect Weight / BMI Weight Weight: 72.1 kg Body Mass Index (BMI) 28.1 ABG / Lab / Microbiology Data 07/16/23 06:48 07/16/23 06:48 Laboratory: Laboratory Results - last 24 hr 07/15/23 06:18: Hepatitis A IgM Ab Negative, Hep Bs Antigen Negative, Hep B Core IgM Ab Negative, Hepatitis C Ab (EIA) Non Reactive, Hep C Ab Comment Comment 07/16/23 06:48: WBC 11.7 H, RBC 4.17 L, Hgb 12.3, Hct 37.7, MCV 90.4, MCH 29.5, MCHC 32.6, RDW Std Deviation 44.2 H, RDW Coeff of Rose 13.5, Plt Count 212, MPV 10.6, Immature Gran % (Auto) 0.300, Neut % (Auto) 57.3, Lymph % (Auto) 32.6, Coffey % (Auto) 8.8, Eos % (Auto) 0.6, Baso % (Auto) 0.4, Absolute Neuts (auto) 6.7, Absolute Lymphs (auto) 3.81, Nucleated RBC % 0, Sodium 140, Potassium 3.3 L , Chloride 114 H, Carbon Dioxide 23.0, Anion Gap 3 L, BUN 14, Creatinine 0.63, Estim Creat Clear Calc 78.55, Est GFR (MDRD) Af Amer 124, Est GFR (MDRD) Non-Af 103, BUN/Creatinine Ratio 22.3 H, Glucose 94, Calcium 7.9 L, Phosphorus 2.5, Magnesium 2.4, Total Bilirubin 0.70, Direct Bilirubin 0.18, AST 41 H, ALT 62 H, Alkaline Phosphatase 65, Total Protein 5.6 L, Albumin 2.6 L, Globulin 3.0 D/C Instructions Discharge Diet: No restrictions Discharge Activity: Return to Normal Activity Call your doctor if you observe: Fever of 101 or Higher, Shortness of breath, Fainting spells and Chest pain Meaningful Use Info Meaningful Use Diagnoses (Choose all that apply): None applicable Discharge Plan Admission Admit Date/Time: 07/14/23 16:00 Attending Provider: Charles Vogel Primary Care Provider: Roberto Sky Consulting Providers: Brigette Villa Discharge Orders/Prescriptions Prescriptions: New pantoprazole 40 mg Tablet,Delayed Release (Dr/Ec) 40 mg PO DAILY 60 Days Qty: 60 0RF Continued epinephrine 0.3 mg/0.3 mL auto-injector 0.3 ml subcut PRN famotidine 20 MG tablet 20 mg PO DAILY PRN (Reason: Heartburn) levothyroxine [Tirosint] 112 mcg capsule 112 mcg PO QODAY levothyroxine [Tirosint] 100 mcg capsule 100 mcg PO QODAY Referrals / Follow Up: Roberto Sky MD [Primary Care Provider] - Disposition Disposition (needs filled in before D/C Order can be placed): Home, Self Care Charges/Coding Visit Charges Inpatient E&M: 53843 Disch Hosp >30min
[2023-07-16] MEDS: Mag Hydrox/Al Hydrox/Simeth 30 ML UDC 15 ML PO (11:44)
[2023-07-16 11:51] VITALS: BP 170/77; PULSE 58; RESP 18; TEMP 37.1; O2SAT 97
[2023-07-18 10:21] LABS: Pathologist Review Reviewed
== END 2023-07-16 11:59 | disposition home or self-care (01) ==
LOC: ED 14:46 → MS3 16:16
PROVIDERS: Internal Medicine Gastroenterology; Admitting Provider Internal Medicine; Emergency Provider Emergency Medicine; PCP Family Medicine; Visit Provider Internal Medicine
PROC: 0DJ08ZZ Inspection of Upper Intestinal Tract, Via Natural or Artificial Opening Endoscopic (ICD-10-PCS; CPT 43235; principal; 2023-07-15 14:30)
DX: K20.80 Other esophagitis without bleeding (principal); E89.0 Postprocedural hypothyroidism; F17.210 Nicotine dependence, cigarettes, uncomplicated; K29.70 Gastritis, unspecified, without bleeding; R11.2 Nausea with vomiting, unspecified; Z79.899 Other long term (current) drug therapy; Z79.890 Hormone replacement therapy; K75.81 Nonalcoholic steatohepatitis (NASH)
CPT/HCPCS: 43239; 43255; 36415; 74177; 80048; 80053; 80074; 80076; 83690; 83735; 84100; 85025; 85610; 85730; 88305; 88313; 88341; 88342; 93005; 96361; 96365; 96366; 96372; 96375; 96376; 99221; 99285; 99406; J7030; Q9967; G0378; J2405

== ENCOUNTER → 2024-11-18 | Outpatient (CLI) | payer OTHER, SELFPAY ==
[2024-11-18 18:07] LABS: Absolute Lymphocyte Count 4.07 X10^3/uL (0.83-4.51); Absolute Neutrophil Count 6.6 X10^3/uL (2.0-7.7); Basophil# 0.09 X10^3/uL; Basophil% 0.8 % (0-1); Eosinophils% 0.8 % (0-5); Hematocrit 50.2 % (37-47); Hemoglobin 16.9 g/dL (12.0-15.0); Lymphocyte # 4.07 X10^3/ul (0.83-4.51); Lymphocyte % 34.6 % (19-41); Mean Corp Hgb Conc 33.7 g/dL (32-36); Mean Corpuscular Hgb 30.1 pg (27.0-32.0); Mean Corpuscular Volume 89.3 fL (81-99); Mean Platelet Vol. 10.6 fl (6.2-12.0); Monocyte# 0.86 X10^3/uL; Monocyte% 7.3 % (0-10); NRBC Flagged by Analyzer 0 % (0-5); Neutrophil # 6.64 X10^3/uL (2.7-7.7); Neutrophil % 56.3 % (47-70); Platelet Count 223 K/mm3 (150-450); RBC Distribution Width CV 13.4 % (11.6-14.6); RBC Distribution Width SD 43.9 fl (35.1-43.9); Red Blood Count 5.62 M/mm3 (4.2-5.4); White Blood Count 11.8 K/mm3 (4.4-11.0)
[2024-11-18 19:02] LABS: ALB/GLOB Ratio 1.3 RATIO (0.9-2.4); AST(SGOT) 23 U/L (<=31); Alanine Aminotransfer ALT/SGPT 25 U/L (<=34); Albumin, Serum 4.6 g/dL (3.4-4.8); Alkaline Phosphatase 110 U/L (35-104); Anion Gap 14 (5-15); BUN 14 mg/dL (4-19); BUN/Creat Ratio 21.1 RATIO (10-20); Calcium,Total 10.6 mg/dL (7.6-11.0); Chloride 104 mmol/L (98-108); Creatinine, Serum 0.66 mg/dL (0.70-1.20); EST Glomerular Filtration Rate 99 (>60); Globulin 3.6 g/dL (2.2-4.2); Glucose 77 mg/dL (70-99); Potassium 4.1 mmol/L (3.3-5.1); Protein, Total 8.2 g/dL (5.9-8.4); Sodium Level 139 mmol/L (133-145); Total Bilirubin 0.44 mg/dL (0.00-1.30)
[2024-11-18 19:07] LABS: Free T3 2.9 pg/mL (2.18-3.98); Thyroid Stim Hormone (TSH) 0.625 uIU/mL (0.300-4.200); Vitamin D,25 Hydroxy 40.8 ng/mL (30-100)
== END | disposition home or self-care (01) ==
LOC: MTLAB 15:18
PROVIDERS: PCP Family Medicine; Referring Provider Family Medicine; Visit Provider Family Medicine
DX: E03.9 Hypothyroidism, unspecified (principal); E55.9 Vitamin D deficiency, unspecified; G89.4 Chronic pain syndrome
CPT/HCPCS: 36415; 80053; 82306; 84439; 84443; 84481; 85025

== ENCOUNTER → 2025-05-13 | Outpatient (CLI) | payer OTHER, SELFPAY ==
[2025-05-13 12:27] LABS: Hematocrit 51.3 % (37-47); Hemoglobin 17.1 g/dL (12.0-15.0); Immature Granulocytes Count 0.010 X10^3/uL (0.0-0.0); Mean Corp Hgb Conc 33.3 g/dL (32-36); Mean Corpuscular Volume 90.5 fL (81-99); Mean Platelet Vol. 10.9 fl (6.2-12.0); NRBC Flagged by Analyzer 0 % (0-5); Platelet Count 258 K/mm3 (150-450); RBC Distribution Width CV 13.7 % (11.6-14.6); RBC Distribution Width SD 45.6 fl (35.1-43.9); Red Blood Count 5.67 M/mm3 (4.2-5.4); White Blood Count 9.1 K/mm3 (4.4-11.0)
[2025-05-13 13:07] LABS: AST(SGOT) 28 U/L (<=31); Alanine Aminotransfer ALT/SGPT 33 U/L (<=34); Albumin, Serum 4.6 g/dL (3.4-4.8); Alkaline Phosphatase 91 U/L (35-104); Anion Gap 13 (5-15); BUN 15 mg/dL (4-19); BUN/Creat Ratio 22.5 RATIO (10-20); Calcium,Total 10.4 mg/dL (7.6-11.0); Carbon Dioxide 23.5 mmol/L (21.0-32.0); Chloride 104 mmol/L (98-108); Cholesterol 242 mg/dL (<=200); Free T3 2.5 pg/mL (2.18-3.98); Globulin 3.6 g/dL (2.2-4.2); Glucose 97 mg/dL (70-99); Low Density Lipoprotein Calc. 163 mg/dL; Potassium 4.2 mmol/L (3.3-5.1); Triglycerides 132 mg/dL; Very Low Density Lipoprotein 26 mg/dL (5-40); Vitamin D,25 Hydroxy 35.5 ng/mL (30-100); cholesterol:hdl ratio screen 4.40
[2025-05-13 13:10] LABS: PTHIN 44 pg/mL (11-61)
== END | disposition home or self-care (01) ==
LOC: MFPLAB 10:00
PROVIDERS: PCP Family Medicine; Visit Provider Family Medicine
DX: K22.70 Barrett's esophagus without dysplasia (principal); E55.9 Vitamin D deficiency, unspecified; E03.9 Hypothyroidism, unspecified; Z13.220 Encounter for screening for lipoid disorders
CPT/HCPCS: 36415; 80053; 80061; 82306; 83970; 84439; 84443; 84481; 85025